=== PATIENT | female | born 1960 | race Caucasian/White ===

== ENCOUNTER 2017-03-30 18:36 | Inpatient (IN) | payer SELFPAY ==
[2017-03-30] VITALS: BP 88/50; PULSE 99; TEMP 36.8; O2SAT 97; BMI 14.6
[~2017-03-30] VITALS: Ht 162.6 cm; Wt 38.6 kg
[~2017-03-30 18:36] MED LIST: IBUP-1050 PO; ONDA4TAB7 SL
[2017-03-30] MEDS ORDERED: LEVAQUIN 750MG / 150ML D5W IV STA (18:54)
[2017-03-30] MEDS ORDERED: METHYLPREDNISOLONE 125 MG VIAL IV STA (18:54)
[2017-03-30] MEDS ORDERED: SODIUM CHLORIDE 0.9% 1000ML 1,000 ML IV STA ×2 (18:54→21:00)
--- NOTE | 2017-03-30 18:58 | EMERGENCY ROOM VISIT NOTE ---
History Report prepared by Aroldo: Nena Rowland Under the Supervision of: Eric Chris.O. First contact with patient: 18:44 Chief Complaint: ILLNESS Stated Complaint: COUGHING UP BLOOD, WEIGHTLOSS, PAIN IN NECK History of Present Illness The patient is a 56 year old female who presents to the Emergency Room with complaints of a cough beginning 4 weeks ago. The patient reports that she has also been coughing up blood for longer than 4 weeks. She states that when she coughs up blood, she also coughs up green mucous. The patient reports that she has also felt short of breath, but denies using breathing treatments. She denies recent travel or contact with anyone sick, or being in contact with anyone with a respiratory disease. She reports that she smokes every day. She states that she has not had an appetite recently and that her weight has dropped from 105 to 84 pounds. The patient reports also having the chills and chest pain that radiates to her back. The patient denies abdominal pain, diarrhea, nose bleeds, blood in stool, rashes, and swelling in her legs. Pt denies any exposure to TB. Source of History: patient Onset: 4 weeks ago Position: other (global) Quality: other (cough with blood) Associated Symptoms: + chills, + chest pain, + back pain, No abdominal pain , No diarrhea, No rash Review of Systems See HPI for pertinent positives & negatives. A total of 10 systems reviewed and were otherwise negative. Past Medical & Surgical Medical Problems: (1) Hemoptysis (2) Lung cancer No pertinent medical history stated. Family History FHx: cancer Social History Smoking Status: Current Every Day Smoker Alcohol Use: occasionally Marital Status: Housing Status: lives with significant other Current/Historical Medications Scheduled PRN Ibuprofen (Advil), 400-600 MG PO Q6H PRN for Pain or Fever Allergies Coded Allergies: No Known Allergies (Unverified , 03/30/17) Physical Exam Vital Signs Date Time Temp Pulse Resp B/P (MAP) Pulse Ox O2 Delivery O2 Flow Rate FiO2 03/30/17 21:30 101 104/53 03/30/17 20:44 92 Nasal Cannula 2.0 03/30/17 20:44 85 Room Air 03/30/17 20:28 106 99/46 91 Room Air 03/30/17 19:19 98 92/54 94 Room Air 03/30/17 19:07 104 03/30/17 18:39 37.1 109 20 85/55 92 Room Air Physical Exam GENERAL: alert, ill appearing, well nourished, no distress, non-toxic, cachectic EYE EXAM: normal conjunctiva, PERRL and EOM's grossly intact OROPHARYNX: no exudate, no erythema, lips, buccal mucosa, and tongue normal and mucous membranes are moist NECK: supple, no nuchal rigidity, no adenopathy, non-tender LUNGS: Coarse and diminished breath sounds bilaterally. Scattered expiratory wheezes. Normal chest wall mechanics HEART: no murmurs, S1 normal and S2 normal ABDOMEN: abdomen soft, non-tender, normo-active bowel sounds, no masses, no rebound or guarding. BACK: Back is symmetrical on inspection and there is no deformity, no midline tenderness, no CVA tenderness. SKIN: no rashes and no bruising UPPER EXTREMITIES: upper extremities are grossly normal. LOWER EXTREMITIES: No pitting edema. NEURO EXAM: Normal sensorium, cranial nerves II-XII grossly intact, normal speech, no gross weakness of arms, no gross weakness of legs. Medical Decision & Procedures ER Provider Diagnostic Interpretation: Radiology results have been interpreted by the radiologist and reviewed by me. CHEST CTA for PULMONARY ARTERIES CT DOSE: 204.98 mGy.cm HISTORY: Hemoptysis. TECHNIQUE: Multiaxial CT images of the chest were performed following the intravenous administration of contrast to evaluate the pulmonary arteries. Maximal intensity projection images were also obtained. A dose lowering technique was utilized adhering to the principles of ALARA. COMPARISON STUDY: None. FINDINGS: Large cavitary thick-walled mass occupying the entire left upper lobe. This obstructs the left upper lobe bronchus and left upper lobe pulmonary artery. No additional filling defects within the remaining pulmonary arteries to suggest pulmonary embolus. Normal caliber thoracic aorta with no evidence for dissection. The heart is normal in size. Trace left pleural effusion. The visualized liver, spleen, right adrenal gland are unremarkable. Large heterogeneous mass occupying the left adrenal gland which measures 6.4 x 4.8 cm. This is consistent with a metastatic focus. The left upper lobe mass extends into the left hilum and left mediastinum and results in partial encasement of the distal left mainstem bronchus with moderate narrowing and partial opacification of the left lower lobe bronchus. There is tumor extension into the left lower lobe bronchus. This mass abuts and slightly narrows the left main pulmonary artery. This mass also abuts the left side of the aortic arch. Emphysema. A 6 mm nodule within the right lower lobe. IMPRESSION: 1. Large thick-walled cavitary mass occupying the entire left upper lobe with extension into the left side of the mediastinum and left hilum. This also narrows and invades into the left lower lobe bronchus. This is consistent with a primary bronchogenic malignancy. 2. A 6 mm nodule within the right lower lobe is highly suspicious for metastatic focus. 3. Large heterogeneous left adrenal gland masses also highly suspicious for metastatic disease. Emphysema. 5. The left upper lobe bronchus and pulmonary artery are completely obstructed. Otherwise, no filling defects within the pulmonary arteries to suggest pulmonary embolus. Electronically signed by: Dontae Rodriguez M.D. 03/30/2017 8:43 PM Dictated Date/Time: 03/30/2017 8:26 PM Laboratory Results Test 03/30/17 19:05 Prothrombin Time 12.0 SECONDS (9.0-12.0) Prothromb Time International Ratio 1.1 (0.9-1.1) Magnesium Level 2.0 mg/dl (1.8-2.4) Troponin I < 0.015 ng/ml (0-0.045) Pro-B-Type Natriuretic Peptide 2473 pg/ml (0-900) Thyroid Stimulating Hormone (TSH) 2.810 uIu/ml (0.300-4.500) Chemistry Specimen Hemolysis Laboratory results per my review. Medications Administered Medications (Trade) Dose Ordered Sig/Bruce Route Start Time Stop Time Status Last Admin Dose Admin Albuterol/ Ipratropium (Duoneb) 12 ml ONE ONCE INH 03/30/17 19:00 03/30/17 19:01 DC 03/30/17 19:21 12 ML Methylprednisolone Sodium Succinate (Solu-Medrol IV) 125 mg NOW STAT IV 03/30/17 18:54 03/30/17 18:56 DC 03/30/17 19:14 125 MG Levofloxacin (Levaquin / D5W) 750 mg NOW STAT IV 03/30/17 18:54 03/31/17 16:32 DC 03/30/17 19:14 750 MG Sodium Chloride 1,000 ml @ 999 mls/hr Q1H1M STAT IV 03/30/17 18:54 03/31/17 16:32 DC 03/30/17 19:12 999 MLS/HR Morphine Sulfate (MoRPHine SULFATE INJ) 2 mg Q30M PRN IV 03/30/17 21:45 04/13/17 21:44 03/30/17 23:31 2 MG Sodium Chloride 1,000 ml @ 100 mls/hr Q10H IV 03/30/17 21:45 03/31/17 16:32 DC 03/31/17 06:38 100 MLS/HR ECG Indication: SOB/dyspnea Rate (beats per minute): 99 Rhythm: sinus rhythm Findings: no acute ischemic change, other (normal axis, normal intervals) ED Course 1844: The patient was evaluated in room C6. A complete history and physical exam was performed. 1853: Ordered Sodium Chloride 1,000 ml @ 999 mls/hr IV, Levofloxacin 750 mg IV, Methylprednisolone Sodium Succinate 125 mg IV. 1899: Ordered Duoneb 12 ml INH. 2054: I updated the patient on her results. 2099: Ordered Sodium Chloride 1,000 ml @ 200 mls/hr IV. 2111: Upon reevaluation, the patient is resting. I discussed the findings and the treatment plan with the patient. She expresses agreement and understanding. I spoke with Dr. Willett of the [facility] Hospitalist Service with Dr. Garsia. She will be evaluated for further management. Medical Decision Differential diagnosis: Etiologies such as infections, reactive airway disease, pneumonia, pneumothorax , COPD, CHF, cardiac ischemia, pulmonary embolism, musculoskeletal, gastrointestinal, as well as others were entertained. Pt here ill appearing. I discussed all results with her. BP initially low, however responded to IVF, I suspect pt runs low due to body habitus and poor po intake recently. Doubt sepsis despite leukocytosis. Likely pneumonia given mass. Pt initially treated as COPD exacerbation. Pt lung exam improved with nebs, however pt didn't report feeling well. Hypoxic on room air. No PE, doubt cardiac etiology. Blood cultures sent as a precaution. Medication Reconcilliation Current Medication List: was personally reviewed by me Blood Pressure Screening Patient's blood pressure: Low blood pressure Consults Time Called: 2099 Consulting Physician: Dr. Willett- [facility] Returned Call: 2111 I reviewed the patient's case with Dr. Willett and Dr. Garsia. He will evaluate the patient for further management. Impression Primary Impression: Hypoxia Additional Impressions: Lung mass COPD exacerbation Hypotension Weight loss Hemoptysis Scribe Attestation The scribe's documentation has been prepared under my direction and personally reviewed by me in its entirety. I confirm that the note above accurately reflects all work, treatment, procedures, and medical decision making performed by me. Departure Information Dispostion Being Evaluated By Hospitalist Referrals No Doctor, Assigned (PCP) Patient Instructions [facility] Problem Qualifiers Additional Impressions: Hypotension Hypotension type: unspecified hypotension type Qualified Codes: I95.9 - Hypotension, unspecified
[2017-03-30] MEDS ORDERED: OPTIRAY 320 IV PRN (19:00)
[2017-03-30] MEDS ORDERED: ALBUT/IPRATROP 3MG/0.5MG NEB 3 ML VIAL INH ONE (19:00)
[2017-03-30 19:15] LABS: HEMATOCRIT 38.8 % (37-47); MEAN CELL VOLUME 93.7 fL (80-100); MEAN CORPUSCULAR HEMOGLOBIN 28.7 pg (25-34); MEAN CORPUSCULAR HGB CONC 30.7 g/dl (32-36); MEAN PLATELET VOLUME 8.6 fL (7.4-10.4); PLATELET COUNT 573 K/uL (130-400); RED BLOOD COUNT 4.14 M/uL (4.2-5.4); WHITE BLOOD COUNT 27.53 K/uL (4.8-10.8)
[2017-03-30 19:25] LABS: INR 1.1 (0.9-1.1)
[2017-03-30 19:40] LABS: BASO % 0.3 %; BASO ABS # 0.07 K/uL (0-0.2); COMPLETE YES; EOS % 0.7 %; IG% 0.4 %; LYMPH % 12.3 %; LYMPH ABS # 3.39 K/uL (1.2-3.4); NEUT % 76.3 %
[2017-03-30 20:05] LABS: ALB/GLOB RATIO 0.4 (0.9-2); ALKALINE PHOSPHATASE 132 U/L (45-117); ALT/SGPT < 6 U/L (12-78); BLOOD UREA NITROGEN 11 mg/dl (7-18); BUN/CREATININE RATIO 15.7 (10-20); CHLORIDE 97 mmol/L (98-107); CREATININE 0.69 mg/dl (0.60-1.20); GLUCOSE 69 mg/dl (70-99); POTASSIUM 4.7 mmol/L (3.5-5.1); SODIUM 132 mmol/L (136-145)
[2017-03-30 20:09] LABS: AST/SGOT 13 U/L (15-37)
[2017-03-30 20:19] LABS: CARBON DIOXIDE 28 mmol/L (21-32)
--- NOTE | 2017-03-30 20:45 | DIAGNOSTIC IMAGING REPORT ---
CHEST CTA for PULMONARY ARTERIES CT DOSE: 204.98 mGy.cm HISTORY: Hemoptysis. TECHNIQUE: Multiaxial CT images of the chest were performed following the intravenous administration of contrast to evaluate the pulmonary arteries. Maximal intensity projection images were also obtained. A dose lowering technique was utilized adhering to the principles of ALARA. COMPARISON STUDY: None. FINDINGS: Large cavitary thick-walled mass occupying the entire left upper lobe. This obstructs the left upper lobe bronchus and left upper lobe pulmonary artery. No additional filling defects within the remaining pulmonary arteries to suggest pulmonary embolus. Normal caliber thoracic aorta with no evidence for dissection. The heart is normal in size. Trace left pleural effusion. The visualized liver, spleen, right adrenal gland are unremarkable. Large heterogeneous mass occupying the left adrenal gland which measures 6.4 x 4.8 cm. This is consistent with a metastatic focus. The left upper lobe mass extends into the left hilum and left mediastinum and results in partial encasement of the distal left mainstem bronchus with moderate narrowing and partial opacification of the left lower lobe bronchus. There is tumor extension into the left lower lobe bronchus. This mass abuts and slightly narrows the left main pulmonary artery. This mass also abuts the left side of the aortic arch. Emphysema. A 6 mm nodule within the right lower lobe. IMPRESSION: 1. Large thick-walled cavitary mass occupying the entire left upper lobe with extension into the left side of the mediastinum and left hilum. This also narrows and invades into the left lower lobe bronchus. This is consistent with a primary bronchogenic malignancy. 2. A 6 mm nodule within the right lower lobe is highly suspicious for metastatic focus. 3. Large heterogeneous left adrenal gland masses also highly suspicious for metastatic disease. Emphysema. 5. The left upper lobe bronchus and pulmonary artery are completely obstructed. Otherwise, no filling defects within the pulmonary arteries to suggest pulmonary embolus. Electronically signed by: Dontae Rodriugez M.D. 03/30/2017 8:43 PM Dictated Date/Time: 03/30/2017 8:26 PM
[2017-03-30] MEDS ORDERED: ALUMINUM/MAGNESIUM/SIMETH (MAALOX MAX) 30 ML UDC PO PRN (21:45)
[2017-03-30] MEDS ORDERED: MAGNESIUM HYDROXIDE SUSP 30 ML UDC PO PRN (21:45)
[2017-03-30] MEDS ORDERED: ACETAMINOPHEN 325 MG TAB PO PRN (21:45)
[2017-03-30] MEDS ORDERED: POLYETHYLENE (MIRALAX) 17 GM PACK PO PRN (21:45)
[2017-03-30] MEDS ORDERED: ONDANSETRON INJ 2 MG/ML 2 ML VIAL IV PRN (21:45)
[2017-03-30] MEDS ORDERED: MoRPHine SULFATE 2 MG/ML CARP IV PRN (21:45)
[2017-03-30] MEDS ORDERED: LORAZEPAM 1 MG TAB PO PRN (21:45)
[2017-03-30] MEDS: SODIUM CHLORIDE 0.9% 1000ML 1,000 ML IV SCH (23:23)
[2017-03-31] VITALS (43 sets, daily range): BP systolic 88–129; BP diastolic 48–68; PULSE 67–99; TEMP 36.4–36.8; O2SAT 89–100; Ht 162.6 cm; Wt 38.6 kg
[2017-03-31] MEDS ORDERED: PAMIDRONATE DISODIUM IV INJ 60 MG in SODIUM CHLORIDE 0.9% 1000ML 1,000 ML IV ONE (02:00)
--- NOTE | 2017-03-31 02:38 | History and Physical ---
History & Physical Date & Time of Service: Mar 31, 2017 at 02:25 Chief Complaint: Hemoptysis, Lung Cancer Primary Care Physician: No Doctor, Assigned History of Present Illness Source: patient, spouse Patient is a 56 year old female with a history of long-standing tobacco abuse, presents with constitutional symptoms going on for the past 6 months. She states that for the past 6 months she's been having intermittent hemoptysis which is comprised of streaks of blood and mucus. She also states that her appetite has been very poor and she has not been eating particularly in the past 4 weeks. Both her endorsed that she has lost 25 pounds of weight. She has a constant sense of feeling feverish, but denies any night sweats or chills. Her also states that she looks quite pale. She denies any abdominal pain, nausea, vomiting, diarrhea or constipation. She' s been urinating normally. She has not eaten much in the past 4 weeks due to low appetite. She does note a [id number] smoking history. The ED a CT scan of her chest showed a large mass in her left long with evidence of dissemination concerning for metastatic malignancy. The patient is to be admitted for further evaluation and treatment. Past Medical/Surgical History Chronic tobacco abuse Increased alcohol consumption, without evidence of alcohol abuse Family History FHx: cancer Social History Smoking Status: Current Every Day Smoker Smokeless Tobacco Use: No Alcohol Use: 14 units per week Drug Use: none Marital Status: in relationship Housing status: lives with significant other Occupational Status: employed ([employer]) Immunizations History of Influenza Vaccine: Unknown History of Tetanus Vaccine?: Unknown History of Pneumococcal: Unknown History of Hepatitis B Vaccine: Unknown Multi-Drug Resistant Organisms History of MDRO: No Allergies Coded Allergies: No Known Allergies (Unverified , 03/30/17) Home Medications Scheduled PRN Ibuprofen (Advil), 400-600 MG PO Q6H PRN for Pain or Fever Review of Systems A 10 point review of systems was negative unless stated above. Physical Exam Vital Signs Date Time Temp Pulse Resp B/P (MAP) Pulse Ox O2 Delivery O2 Flow Rate FiO2 03/31/17 00:00 36.8 99 22 88/50 97 Nasal Cannula 2.0 03/31/17 00:00 Nasal Cannula 2.0 03/30/17 22:56 96 90/51 97 03/30/17 21:30 101 104/53 03/30/17 20:44 92 Nasal Cannula 2.0 03/30/17 20:44 85 Room Air 03/30/17 20:28 106 99/46 91 Room Air 03/30/17 19:19 98 92/54 94 Room Air 03/30/17 19:07 104 03/30/17 18:39 37.1 109 20 85/55 92 Room Air General Appearance: + thin, + pertinent finding (appears thin and malnourished) Head: normocephalic, atraumatic Eyes: normal inspection, EOMI ENT: hearing grossly normal, pharynx normal Neck: supple, no adenopathy, no JVD Respiratory/Chest: no respiratory distress, + decreased breath sounds ( decreased breath sounds in the left lung field) Cardiovascular: regular rate, rhythm, no gallop, no murmur Abdomen/GI: normal bowel sounds, soft, no organomegaly Back: no CVA tenderness, no muscle spasm Extremities/Musculoskelatal: no calf tenderness, no pedal edema Neurologic/Psych: alert, oriented x 3, + depressed affect Skin: normal color, warm/dry, no rash Lymphatic: no adenopathy Diagnostics Laboratory Results Results Past 24 Hours Test 03/30/17 19:05 03/30/17 23:18 Range/Units White Blood Count 27.53 4.8-10.8 K/uL Red Blood Count 4.14 4.2-5.4 M/uL Hemoglobin 11.9 12.0-16.0 g/dL Hematocrit 38.8 37-47 % Mean Corpuscular Volume 93.7 80-100 fL Mean Corpuscular Hemoglobin 28.7 25-34 pg Mean Corpuscular Hemoglobin Concent 30.7 32-36 g/dl Platelet Count 573 130-400 K/uL Mean Platelet Volume 8.6 7.4-10.4 fL Neutrophils (%) (Auto) 76.3 % Lymphocytes (%) (Auto) 12.3 % Monocytes (%) (Auto) 10.0 % Eosinophils (%) (Auto) 0.7 % Basophils (%) (Auto) 0.3 % Neutrophils # (Auto) 21.02 1.4-6.5 K/uL Lymphocytes # (Auto) 3.39 1.2-3.4 K/uL Monocytes # (Auto) 2.74 0.11-0.59 K/uL Eosinophils # (Auto) 0.19 0-0.5 K/uL Basophils # (Auto) 0.07 0-0.2 K/uL RDW Standard Deviation 49.9 36.4-46.3 fL RDW Coefficient of Variation 14.6 11.5-14.5 % Immature Granulocyte % (Auto) 0.4 % Immature Granulocyte # (Auto) 0.12 0.00-0.02 K/uL Prothrombin Time 12.0 9.0-12.0 SECONDS Prothromb Time International Ratio 1.1 0.9-1.1 Sodium Level 132 136-145 mmol/L Potassium Level 4.7 3.5-5.1 mmol/L Chloride Level 97 98-107 mmol/L Carbon Dioxide Level 28 21-32 mmol/L Anion Gap 7.0 3-11 mmol/L Blood Urea Nitrogen 11 7-18 mg/dl Creatinine 0.69 0.60-1.20 mg/dl Est Creatinine Clear Calc Drug Dose 55.3 ml/min Estimated GFR () 112.8 Estimated GFR (Non- 97.3 BUN/Creatinine Ratio 15.7 10-20 Random Glucose 69 70-99 mg/dl Calcium Level 12.0 8.5-10.1 mg/dl Magnesium Level 2.0 1.8-2.4 mg/dl Total Bilirubin 0.5 0.2-1 mg/dl Aspartate Amino Transf (AST/SGOT) 13 15-37 U/L Alanine Aminotransferase (ALT/SGPT) < 6 12-78 U/L Alkaline Phosphatase 132 45-117 U/L Troponin I < 0.015 0-0.045 ng/ml Pro-B-Type Natriuretic Peptide 2473 0-900 pg/ml Total Protein 7.0 6.4-8.2 gm/dl Albumin 2.1 3.4-5.0 gm/dl Globulin 4.9 2.5-4.0 gm/dl Albumin/Globulin Ratio 0.4 0.9-2 Thyroid Stimulating Hormone (TSH) 2.810 0.300-4.500 uIu/ml Chemistry Specimen Hemolysis Parathyroid Hormone (Intact) < 5.5 11.1-79.5 pg/mL Microbiology Results 03/30/17 Blood Culture, Received Pending 03/30/17 Blood Culture, Received Pending Diagnostic Radiology CHEST CTA for PULMONARY ARTERIES CT DOSE: 204.98 mGy.cm HISTORY: Hemoptysis. TECHNIQUE: Multiaxial CT images of the chest were performed following the intravenous administration of contrast to evaluate the pulmonary arteries. Maximal intensity projection images were also obtained. A dose lowering technique was utilized adhering to the principles of ALARA. COMPARISON STUDY: None. FINDINGS: Large cavitary thick-walled mass occupying the entire left upper lobe. This obstructs the left upper lobe bronchus and left upper lobe pulmonary artery. No additional filling defects within the remaining pulmonary arteries to suggest pulmonary embolus. Normal caliber thoracic aorta with no evidence for dissection. The heart is normal in size. Trace left pleural effusion. The visualized liver, spleen, right adrenal gland are unremarkable. Large heterogeneous mass occupying the left adrenal gland which measures 6.4 x 4.8 cm. This is consistent with a metastatic focus. The left upper lobe mass extends into the left hilum and left mediastinum and results in partial encasement of the distal left mainstem bronchus with moderate narrowing and partial opacification of the left lower lobe bronchus. There is tumor extension into the left lower lobe bronchus. This mass abuts and slightly narrows the left main pulmonary artery. This mass also abuts the left side of the aortic arch. Emphysema. A 6 mm nodule within the right lower lobe. IMPRESSION: 1. Large thick-walled cavitary mass occupying the entire left upper lobe with extension into the left side of the mediastinum and left hilum. This also narrows and invades into the left lower lobe bronchus. This is consistent with a primary bronchogenic malignancy. 2. A 6 mm nodule within the right lower lobe is highly suspicious for metastatic focus. 3. Large heterogeneous left adrenal gland masses also highly suspicious for metastatic disease. Emphysema. 5. The left upper lobe bronchus and pulmonary artery are completely obstructed. Otherwise, no filling defects within the pulmonary arteries to suggest pulmonary embolus. Electronically signed by: Dontae Rodriguez M.D. 03/30/2017 8:43 PM Dictated Date/Time: 03/30/2017 8:26 PM The status of this report is Signed. Draft = Not yet reviewed or approved by Radiologist. Signed = Reviewed and approved by Radiologist. Impression Assessment and Plan 56 showed female, with new suspected metastatic cancer of the lung. This is a new diagnosis for her and has not previously had any kind of workup. Our plan for her is as follows: Large left lung mass - Suspected lung primary; evidence of dissemination to the abdomen - Requires staging CT abdomen pelvis with IV and oral contrast CT brain with and without contrast The patient is a 30 had contrast studies done today, therefore these studies may need to be deferred until tomorrow - Consult pulmonary - Consult thoracic surgery Left Lobar Pneumonia - WBC 27 on arrival - Levaquin IV to cover for occult pneumonia obscured by the mass Chronic protein calorie malnutrition - Secondary to consumptive malignancy - Well rehydrate overnight with normal saline @ 100 ml/hr - Low albumin, likely has low prealbumin as well - 18 consider nutritional consultation has needed Hyponatremia - Sodium 132 - May be due to chronic malnutrition secondary to malignancy - We'll hydrate the patient overnight and repeat renal panel and electrolytes daily Hypercalcemia - Calcium level is 12, concerning for likely metastatic disease to the bone - Serum PTH is low - Consider paraneoplastic syndrome - We'll administer 60 mg IV pamidronate 1 dose Elevated alkaline phosphatase - The patient does not have any right upper quadrant tenderness or findings suggestive of biliary obstruction - Again would consider the possibility of metastatic disease to the biliary tree of the liver - Monitor daily Chronic tobacco abuse - 14 g nicotine patch Increased consumption without evidence of alcohol abuse - The patient is not appearing to be withdrawing at this time - We'll monitor clinically and can institute alcohol withdrawal protocol if symptoms noted DVT Prophylaxis - SUMA Flores, CM Angulo - I have held off on pharmacological anticoagulating the patient at this time, given history of hemoptysis If H&H remains stable, and the patient can be started, as patient is a high risk for thrombosis due to malignancy Code Status - Level I Full Code Disposition - Telemetry - OT and PT evaluations Attending Addendum: I have physically seen and examined this patient, have directed the resident's medical activities, and agree with the H&P as noted above with the following exceptions as noted. The patient is awake, alert and oriented 3, cachectic appearing normocephalic and atraumatic, sitting upright in bed and in no acute distress. HEENT--PERRL, EOMI, mucous membranes and oropharynx dry. Neck--supple, no JVD or bruits, thyroid normal, trachea midline, no adenopathy. Heart--normal S1 and S2, no extra beats, no murmurs, rubs or gallops. Lungs--decreased breath sounds left side greater than right. Abdomen--normal bowel sounds and soft, nontender and nondistended, no hernias or masses, no organomegaly. Extremities--no cyanosis, clubbing or edema. There are good distal pulses b/l. Dermatologic--normal skin turgor, normal color, warm and dry, no abnormal lymph nodes, no rash. Neurologic--cranial nerves II through XII grossly intact. Rheumatologic--normal range of motion, nontender, muscles and joints. Psychiatric--depressed and tearful affect. Assessment and Plan: Newly diagnosed large left upper lobe lung mass with erosion into left hilum and mediastinum/metastases to left adrenal gland and right lower lobe of lung/ unintentional weight loss over 6 months/postobstructive pneumonia-- Admitted to the telemetry unit for close oxygen monitoring. Nothing by mouth after midnight. Vancomycin IV, Zosyn IV and Levaquin IV. Duonebs every 4 hours while awake and every 2 hours when necessary. Consult thoracic surgery/pulmonology. Order CT of head, abdomen and pelvis for further staging. We'll need oncology/radiation oncology consults. 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 Tobacco use disorder-- NicoDerm patch. Tobacco cessation program. Level of Care Telemetry Advanced Directives Existing Advance Directive: No Existing Living Will: No Existing Power of Steam Shovel Engineer: No Resuscitation Status FULL RESUSCITATION VTE Prophylaxis VTE Risk Assessment Done? Y/N: Yes Risk Level: Moderate Given or contraindicated: SCD's
[2017-03-31] MEDS ORDERED: VANCOMYCIN INJ 1,000 MG in SODIUM CHLORIDE 0.9% 250ML 250 ML IV STA (05:27)
[2017-03-31] MEDS ORDERED: PIPERACILL/TAZOBAC IV 3.375 GM in DEXTROSE 5% 100ML 100 ML IV SCH (06:00)
[2017-03-31] MEDS ORDERED: PIPERACILL/TAZOBAC IV 3.375 GM in DEXTROSE 5% 100ML IV ONE (06:00)
[2017-03-31] MEDS ORDERED: PIPERACILL/TAZOBAC CONSULT ACTIVE PRN (06:15)
[2017-03-31] MEDS ORDERED: VANCOMYCIN CONSULT ACTIVE PRN (06:15)
[2017-03-31] MEDS: SODIUM CHLORIDE 0.9% 1000ML 1,000 ML IV SCH (06:38)
--- NOTE | 2017-03-31 07:04 | Family Medicine Progress Note ---
Progress Note Date of Service Mar 31, 2017. Subjective Pt evaluation today including: conversation w/ patient, physical exam, chart review, lab review The patient was seen and examined at bedside. Somnolent. Patient is resting comfortably in bed. States she feels better. Hemoptysis cup at bedside. Plan of care was described to the patient and all questions were answered. Constitutional: No fever, No chills, No sweats, No weight loss ENT: No hearing loss Respiratory: + cough, + sputum, + shortness of breath, + hemoptysis, No wheezing, No dyspnea on exertion Cardiovascular: No chest pain Abdomen: No pain, No nausea, No vomiting, No diarrhea, No constipation Female : No dysuria Psychiatric: No depression symptoms Skin: No rash Objective Physical Exam General Appearance: WD/WN, no apparent distress Eyes: PERRL Respiratory/Chest: chest non-tender, no respiratory distress, no accessory muscle use, + crackles, + rales (bilateral lung rubio) Cardiovascular: regular rate, rhythm, no edema, no gallop, no JVD, no murmur Abdomen: normal bowel sounds, non tender, soft, no organomegaly, no pulsatile mass Extremities: normal range of motion, non-tender, normal inspection, no pedal edema, no calf tenderness Neurologic/Psychiatric: beef pusher II-XII nml as tested, no motor/sensory deficits, alert, normal mood/affect, oriented x 3 Assessment and Plan 56F with a 40pk year smoking history, self insured, p/w hemoptysis x [address] chest suspicious of new metastatic cancer of the lung. Was working at a [employer] in [place] up until 1 day [employer]. S/p bronchoscopy today with pathology pending. Large left lung mass - Suspected lung primary; evidence of dissemination to the abdomen - Requires staging CT abdomen pelvis with IV and oral contrast still pending. CT brain with and without contrast still pending. - Dr. Ascencio bronched her today - suspicious lung lesions on left. Left Lobar Pneumonia - WBC 27 on arrival - Received Levoquin, Vanco and Zosyn - will will keep Zosyn for now and hopefully narrow to Levoquin later. Chronic protein calorie malnutrition - Secondary to consumptive malignancy - Well rehydrate overnight with normal saline @ 100 ml/hr - Low albumin, likely has low prealbumin as well - Consider nutritional consultation as needed Hyponatremia - Admitting Sodium 132 - May be due to chronic malnutrition secondary to malignancy - DC'd IVF, continue to monitor. Hypercalcemia - Calcium level is 12, concerning for likely metastatic disease to the bone - Serum PTH is low - Consider paraneoplastic syndrome - s/p 60 mg IV pamidronate 1 dose Elevated alkaline phosphatase - The patient does not have any right upper quadrant tenderness or findings suggestive of biliary obstruction - Again would consider the possibility of metastatic disease to the biliary tree of the liver - Monitor daily Chronic tobacco abuse - 14 g nicotine patch Increased consumption without evidence of alcohol abuse - The patient is not appearing to be withdrawing at this time - We'll monitor clinically and can institute alcohol withdrawal protocol if symptoms noted DVT Prophylaxis - SCD Knee, CM Hose - I have held off on pharmacological anticoagulating the patient at this time, given history of hemoptysis If H&H remains stable, and the patient can be started, as patient is a high risk for thrombosis due to malignancy Disposition - Med Surg - OT and PT evaluations FULL CODE Resident Physician Supervision Note: I interviewed and examined the patient. Discussed with Dr. Phelps and agree with findings and plan as documented in the note. Any exceptions or clarifications are listed here: None Documented By: Brian Sifuentes sleeping/sedated post bronch. procedure reviewed. vitals noted nad breathing unlabored no pallor or icterus, no appearance of respiratory distress newly identified lung cancer w postobstructive pneumonia, hypoxic respiratory failure, and sepsis -improving in regards to pneumonia/hypoxia. continue zosyn. post bronch for tissue. 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 otherwise as above Resident Involvement: Resident Care Provided Care Provided: Adult Hospital Medicine
[2017-03-31 08:32] LABS: COMPLETE YES; HEMATOCRIT 37.6 % (37-47); IG% 0.4 %; LYMPH % 7.3 %; LYMPH ABS # 1.55 K/uL (1.2-3.4); MEAN CELL VOLUME 93.3 fL (80-100); MEAN CORPUSCULAR HEMOGLOBIN 30.8 pg (25-34); MONO % 0.6 %; NEUT % 91.7 %; PLATELET COUNT 521 K/uL (130-400); RED BLOOD COUNT 4.03 M/uL (4.2-5.4); WHITE BLOOD COUNT 21.22 K/uL (4.8-10.8)
[2017-03-31] MEDS: NICOTINE 14 MG/24 HR TDSY TD SCH (09:00)
[2017-03-31 09:06] LABS: ALB/GLOB RATIO 0.4 (0.9-2); ALKALINE PHOSPHATASE 105 U/L (45-117); ALT/SGPT < 6 U/L (12-78); AST/SGOT 7 U/L (15-37); BLOOD UREA NITROGEN 12 mg/dl (7-18); BUN/CREATININE RATIO 17.7 (10-20); CALCIUM 11.6 mg/dl (8.5-10.1); CARBON DIOXIDE 24 mmol/L (21-32); CHLORIDE 100 mmol/L (98-107); CREATININE 0.65 mg/dl (0.60-1.20); GLUCOSE 167 mg/dl (70-99); POTASSIUM 4.3 mmol/L (3.5-5.1); SODIUM 134 mmol/L (136-145)
--- NOTE | 2017-03-31 09:34 | Pharmacy Progress Note ---
Pharmacy Antibiotic Consult Date of Service: Mar 31, 2017. Pharmacy Dosing Scope Pharmacy is consulted to initiate vancomycin/zosyn IV dosing therapy, order appropriate labs and adjust drug dose/frequency. Subjective The patient is a 56 year old female admitted on Mar 30, 2017 at 21:54. Objective Height (Feet): 5 Height (Inches): 4.00 Weight (Kilograms): 38.600 Lab Results (24hrs): Test 03/30/17 19:05 03/30/17 23:18 03/31/17 07:50 White Blood Count 27.53 K/uL (4.8-10.8) 21.22 K/uL (4.8-10.8) Red Blood Count 4.14 M/uL (4.2-5.4) 4.03 M/uL (4.2-5.4) Hemoglobin 11.9 g/dL (12.0-16.0) 12.4 g/dL (12.0-16.0) Hematocrit 38.8 % (37-47) 37.6 % (37-47) Mean Corpuscular Volume 93.7 fL (80-100) 93.3 fL (80-100) Mean Corpuscular Hemoglobin 28.7 pg (25-34) 30.8 pg (25-34) Mean Corpuscular Hemoglobin Concent 30.7 g/dl (32-36) 33.0 g/dl (32-36) Platelet Count 573 K/uL (130-400) 521 K/uL (130-400) Mean Platelet Volume 8.6 fL (7.4-10.4) 9.0 fL (7.4-10.4) Neutrophils (%) (Auto) 76.3 % 91.7 % Lymphocytes (%) (Auto) 12.3 % 7.3 % Monocytes (%) (Auto) 10.0 % 0.6 % Eosinophils (%) (Auto) 0.7 % 0.0 % Basophils (%) (Auto) 0.3 % 0.0 % Neutrophils # (Auto) 21.02 K/uL (1.4-6.5) 19.47 K/uL (1.4-6.5) Lymphocytes # (Auto) 3.39 K/uL (1.2-3.4) 1.55 K/uL (1.2-3.4) Monocytes # (Auto) 2.74 K/uL (0.11-0.59) 0.12 K/uL (0.11-0.59) Eosinophils # (Auto) 0.19 K/uL (0-0.5) 0.00 K/uL (0-0.5) Basophils # (Auto) 0.07 K/uL (0-0.2) 0.00 K/uL (0-0.2) RDW Standard Deviation 49.9 fL (36.4-46.3) 49.5 fL (36.4-46.3) RDW Coefficient of Variation 14.6 % (11.5-14.5) 14.6 % (11.5-14.5) Immature Granulocyte % (Auto) 0.4 % 0.4 % Immature Granulocyte # (Auto) 0.12 K/uL (0.00-0.02) 0.08 K/uL (0.00-0.02) Prothrombin Time 12.0 SECONDS (9.0-12.0) Prothromb Time International Ratio 1.1 (0.9-1.1) Sodium Level 132 mmol/L (136-145) 134 mmol/L (136-145) Potassium Level 4.7 mmol/L (3.5-5.1) 4.3 mmol/L (3.5-5.1) Chloride Level 97 mmol/L (98-107) 100 mmol/L (98-107) Carbon Dioxide Level 28 mmol/L (21-32) 24 mmol/L (21-32) Anion Gap 7.0 mmol/L (3-11) 9.0 mmol/L (3-11) Blood Urea Nitrogen 11 mg/dl (7-18) 12 mg/dl (7-18) Creatinine 0.69 mg/dl (0.60-1.20) 0.65 mg/dl (0.60-1.20) Est Creatinine Clear Calc Drug Dose 55.3 ml/min 58.9 ml/min Estimated GFR () 112.8 115.0 Estimated GFR (Non- 97.3 99.2 BUN/Creatinine Ratio 15.7 (10-20) 17.7 (10-20) Random Glucose 69 mg/dl (70-99) 167 mg/dl (70-99) Calcium Level 12.0 mg/dl (8.5-10.1) 11.6 mg/dl (8.5-10.1) Magnesium Level 2.0 mg/dl (1.8-2.4) Total Bilirubin 0.5 mg/dl (0.2-1) 0.4 mg/dl (0.2-1) Aspartate Amino Transf (AST/SGOT) 13 U/L (15-37) 7 U/L (15-37) Alanine Aminotransferase (ALT/SGPT) < 6 U/L (12-78) < 6 U/L (12-78) Alkaline Phosphatase 132 U/L (45-117) 105 U/L (45-117) Troponin I < 0.015 ng/ml (0-0.045) Pro-B-Type Natriuretic Peptide 2473 pg/ml (0-900) Total Protein 7.0 gm/dl (6.4-8.2) 6.0 gm/dl (6.4-8.2) Albumin 2.1 gm/dl (3.4-5.0) 1.7 gm/dl (3.4-5.0) Globulin 4.9 gm/dl (2.5-4.0) 4.3 gm/dl (2.5-4.0) Albumin/Globulin Ratio 0.4 (0.9-2) 0.4 (0.9-2) Thyroid Stimulating Hormone (TSH) 2.810 uIu/ml (0.300-4.500) Chemistry Specimen Hemolysis Parathyroid Hormone (Intact) < 5.5 pg/mL (11.1-79.5) Micro Results: Date/Time Source Procedure Growth Status 03/30/17 22:03 Blood Blood Culture Pending Received 03/30/17 22:03 Blood Blood Culture Pending Received Assessment & Plan Assessment: Pt is a 56 yo female (+) constitutional symptoms past 6 months, with recent weight loss, 40 pack year smoking history CT scn with large mass in left lung admitted for further evaluation Vancomycin, zosyn, levquin started for left lower lobe pneumonia Plan: Loading dose of 1000 mg (25 mg/kg) x 1 given this AM Maintenance Dose: 750 mg (19 mg/kg) q18H SCr 0.65, CrCl 58.9, Ke 0.053, T1/2 ~13 Hrs Goal trough for pneumonia 15-20 mcg/mL Trough ordered for 04/02 @ 1130 MRSA swab ordered Zosyn 3.375 gm x 1 then 3.375 q8H extended infusion for CrCl > 20 mL/min Pharmacy will continue to follow and will adjust dose/frequency as necessary. Thank you
[2017-03-31] MEDS: PIPERACILL/TAZOBAC IV 3.375 GM in DEXTROSE 5% 100ML IV SCH ×2 (10:35→17:50)
--- NOTE | 2017-03-31 11:19 | Pulmonary Consultation ---
History General Date of Service: Mar 31, 2017. Stated Complaint: Hemoptysis, Lung Cancer HPI Patient is a 56-year-old female currently admitted to [facility] who presented to the emergency department with complaints of cough, hemoptysis, green mucus production, and shortness of Breath. The patient is a current tobacco smoker and has been smoking approximately 1 pack per day for 40 years. The patient states that her appetite has been severely decreased recently. She lost approximately 20 lb over the past few weeks. Upon admission, the patient did have a CTA of her chest which shows a large thick walled cavitary mass occupying the entire left upper lobe with extensions into the left side of the mediastinum and left hilum. There is also notable invasion into the left lower lobe bronchus which is most likely consistent with primary bronchogenic malignancy. She was also noted to have 6 mm nodule within the right lower lobe, a large heterogenous left adrenal gland mass, emphysema, and left upper lobe bronchus and pulmonary artery complete obstruction. These images were reviewed by me and reviewed with Dr. Ascencio as well. The patient does also have blood cultures which are pending. Her white blood cell count on admission was 27.53. Hemoglobin was 11.9. Platelet count was 573 , and neutrophil predominance was seen with 21.0 to neutrophil count. BNP was 2473. She was also noted to have slightly low sodium and chloride on initial lab work. Her vital signs were also reviewed. It was noted that she has been afebrile since admission. Blood pressure has been between 85/55 to 104/62 today. She is currently on nasal cannula O2. Her SaO2 today been 96 % and above. The patient did also have an EKG on admission which showed sinus rhythm, and possible left atrial enlargement. This was viewed. Historian: patient Review of Systems Constitutional: denies: chills, fever Eyes: denies: itching, visual changes ENT: denies: loss of hearing Cardiovascular: denies: chest pain, chest tightness Respiratory: reports: cough, shortness of breath, hemoptysis Gastrointestinal: denies: abdominal pain, constipation, diarrhea Genitourinary - Female: denies: dysuria Integumentary: denies: rash Neurologic: reports: general weakness, denies: headache All Other Symptoms All Other Systems: Reviewed and Negative Past Medical History Past Medical History: Chronic tobacco abuse Increased alcohol consumption, without evidence of alcohol abuse Medical Problems: (1) Hemoptysis (2) Lung cancer Family History FHx: cancer Social History Hx Tobacco Use In Past Year?: Yes Smoking Status: Current Every Day Smoker Marital status: in relationship Housing status: lives with significant other 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) Immunizations History of Influenza Vaccine: Unknown History of Tetanus Vaccine?: Unknown History of Pneumococcal: Unknown History of Hepatitis B Vaccine: Unknown History of MDRO History of MDRO: No Allergies Coded Allergies: No Known Allergies (Unverified , 03/30/17) Current Medications Reported Home Medications Medications Dose Route/Sig Max Daily Dose Days Date Category Advil (Ibuprofen) 200 Mg Tab 400-600 Mg PO Q6H PRN 10/29/12 Reported Physical Physical Exam Vital Signs: Date Time Temp Pulse Resp B/P (MAP) Pulse Ox O2 Delivery O2 Flow Rate FiO2 03/31/17 08:00 Nasal Cannula 2.0 03/31/17 07:56 36.5 70 18 104/62 (76) 96 Nasal Cannula 2.0 03/31/17 04:00 Nasal Cannula 2.0 03/31/17 03:49 36.5 83 18 90/49 (63) 99 Nasal Cannula 2.0 03/31/17 00:00 36.8 99 22 88/50 97 Nasal Cannula 2.0 03/31/17 00:00 Nasal Cannula 2.0 03/30/17 22:56 96 90/51 97 03/30/17 21:30 101 104/53 03/30/17 20:44 92 Nasal Cannula 2.0 03/30/17 20:44 85 Room Air 03/30/17 20:28 106 99/46 91 Room Air 03/30/17 19:19 98 92/54 94 Room Air 03/30/17 19:07 104 03/30/17 18:39 37.1 109 20 85/55 92 Room Air General: Patient is awake, alert, cooperative, and in no acute distress. Very thin Skin: Normal appearance, texture, and temperature. No apparent rash or ecchymoses. HEENT: Normocephalic and atraumatic. Eyes are anicteric and non-erythematous. EOMI c PERRLA. Hearing intact and without difficulty. Nose appears normal and without drainage. Trachea midline. Thyroid appears normal, and neck is supple. Lungs: Severely decreased breath sounds throughout left lung. Slightly decrease breath sounds throughout right lung. Mild high pitched wheeze in left upper. No accessory muscle use. Chest is nontender to palpation Heart: Regular rate and rhythm. Normal S1 and S2 heard. No S3/S4, rubs, murmurs , or gallops appreciated. Abdomen: Active bowel sounds heard throughout all 4 quadrants. Extremities: No cyanosis or edema. Appears to have slight clubbing of the fingernails. Gait normal and without difficulty. Freely moving extremities during exam. Neuro: Alert and oriented X3. CN II-XII grossly intact. Sensation and motor function grossly intact. Psych: Mood and affect are normal. Diagnostics Labs Results Past 24 Hours Test 03/30/17 19:05 03/30/17 23:18 03/31/17 07:50 Range/Units White Blood Count 27.53 21.22 4.8-10.8 K/uL Red Blood Count 4.14 4.03 4.2-5.4 M/uL Hemoglobin 11.9 12.4 12.0-16.0 g/dL Hematocrit 38.8 37.6 37-47 % Mean Corpuscular Volume 93.7 93.3 80-100 fL Mean Corpuscular Hemoglobin 28.7 30.8 25-34 pg Mean Corpuscular Hemoglobin Concent 30.7 33.0 32-36 g/dl Platelet Count 573 521 130-400 K/uL Mean Platelet Volume 8.6 9.0 7.4-10.4 fL Neutrophils (%) (Auto) 76.3 91.7 % Lymphocytes (%) (Auto) 12.3 7.3 % Monocytes (%) (Auto) 10.0 0.6 % Eosinophils (%) (Auto) 0.7 0.0 % Basophils (%) (Auto) 0.3 0.0 % Neutrophils # (Auto) 21.02 19.47 1.4-6.5 K/uL Lymphocytes # (Auto) 3.39 1.55 1.2-3.4 K/uL Monocytes # (Auto) 2.74 0.12 0.11-0.59 K/uL Eosinophils # (Auto) 0.19 0.00 0-0.5 K/uL Basophils # (Auto) 0.07 0.00 0-0.2 K/uL RDW Standard Deviation 49.9 49.5 36.4-46.3 fL RDW Coefficient of Variation 14.6 14.6 11.5-14.5 % Immature Granulocyte % (Auto) 0.4 0.4 % Immature Granulocyte # (Auto) 0.12 0.08 0.00-0.02 K/uL Prothrombin Time 12.0 9.0-12.0 SECONDS Prothromb Time International Ratio 1.1 0.9-1.1 Sodium Level 132 134 136-145 mmol/L Potassium Level 4.7 4.3 3.5-5.1 mmol/L Chloride Level 97 100 98-107 mmol/L Carbon Dioxide Level 28 24 21-32 mmol/L Anion Gap 7.0 9.0 3-11 mmol/L Blood Urea Nitrogen 11 12 7-18 mg/dl Creatinine 0.69 0.65 0.60-1.20 mg/dl Est Creatinine Clear Calc Drug Dose 55.3 58.9 ml/min Estimated GFR () 112.8 115.0 Estimated GFR (Non- 97.3 99.2 BUN/Creatinine Ratio 15.7 17.7 10-20 Random Glucose 69 167 70-99 mg/dl Calcium Level 12.0 11.6 8.5-10.1 mg/dl Magnesium Level 2.0 1.8-2.4 mg/dl Total Bilirubin 0.5 0.4 0.2-1 mg/dl Aspartate Amino Transf (AST/SGOT) 13 7 15-37 U/L Alanine Aminotransferase (ALT/SGPT) < 6 < 6 12-78 U/L Alkaline Phosphatase 132 105 45-117 U/L Troponin I < 0.015 0-0.045 ng/ml Pro-B-Type Natriuretic Peptide 2473 0-900 pg/ml Total Protein 7.0 6.0 6.4-8.2 gm/dl Albumin 2.1 1.7 3.4-5.0 gm/dl Globulin 4.9 4.3 2.5-4.0 gm/dl Albumin/Globulin Ratio 0.4 0.4 0.9-2 Thyroid Stimulating Hormone (TSH) 2.810 0.300-4.500 uIu/ml Chemistry Specimen Hemolysis Parathyroid Hormone (Intact) < 5.5 11.1-79.5 pg/mL Hepatitis C Antibody Screen NEG NEG Microbiology Results 03/30/17 Blood Culture, Received Pending 03/30/17 Blood Culture, Received Pending Diagnostic Radiology CHEST CTA for PULMONARY ARTERIES CT DOSE: 204.98 mGy.cm HISTORY: Hemoptysis. TECHNIQUE: Multiaxial CT images of the chest were performed following the intravenous administration of contrast to evaluate the pulmonary arteries. Maximal intensity projection images were also obtained. A dose lowering technique was utilized adhering to the principles of ALARA. COMPARISON STUDY: None. FINDINGS: Large cavitary thick-walled mass occupying the entire left upper lobe. This obstructs the left upper lobe bronchus and left upper lobe pulmonary artery. No additional filling defects within the remaining pulmonary arteries to suggest pulmonary embolus. Normal caliber thoracic aorta with no evidence for dissection. The heart is normal in size. Trace left pleural effusion. The visualized liver, spleen, right adrenal gland are unremarkable. Large heterogeneous mass occupying the left adrenal gland which measures 6.4 x 4.8 cm. This is consistent with a metastatic focus. The left upper lobe mass extends into the left hilum and left mediastinum and results in partial encasement of the distal left mainstem bronchus with moderate narrowing and partial opacification of the left lower lobe bronchus. There is tumor extension into the left lower lobe bronchus. This mass abuts and slightly narrows the left main pulmonary artery. This mass also abuts the left side of the aortic arch. Emphysema. A 6 mm nodule within the right lower lobe. IMPRESSION: 1. Large thick-walled cavitary mass occupying the entire left upper lobe with extension into the left side of the mediastinum and left hilum. This also narrows and invades into the left lower lobe bronchus. This is consistent with a primary bronchogenic malignancy. 2. A 6 mm nodule within the right lower lobe is highly suspicious for metastatic focus. 3. Large heterogeneous left adrenal gland masses also highly suspicious for metastatic disease. Emphysema. 5. The left upper lobe bronchus and pulmonary artery are completely obstructed. Otherwise, no filling defects within the pulmonary arteries to suggest pulmonary embolus. EKG Noted in HPI. Impression Assessment and Plan Patient is a 53-year-old female with hemoptysis, shortness of breath, and large cavitary left lung mass. Seems most likely that this patient has primary bronchogenic carcinoma, but will plan for EBUS with bronchoscopy this afternoon to further evaluate the patient's large mass. Discussed this plan with Ap Bey PA-C, thoracic surgery briefly as well. Patient is aware of plan. Placed order for NPO. The patient has been seen and examined as well as the plan reviewed. I agree with moving forward with the EBUS evaluation.
--- NOTE | 2017-03-31 13:09 | History & Physical Bridge Note ---
H&P Re-Evaluation Bridge Note: I have examined the patient, reviewed the History & Physical and in the interval since the performance of the History & Physical I have noted the following changes of clinical significance: No changes noted
--- NOTE | 2017-03-31 15:13 | SURGICAL CONSULTATION ---
DATE OF CONSULTATION: 03/31/2017 DATE OF CONSULTATION: 03/31/2017 REASON FOR CONSULTATION: Left lung mass. HISTORY OF PRESENT ILLNESS: This is a 56-year-old female who started smoking at age 16 and has smoked a pack a day for the last 40 years. She has been having blood streaked sputum for the last 6 months. The patient normally weighs between 108 and 110 pounds and now is down to 85 pounds. She is very weak. She developed some mild chest pain in her left lung and her hemoptysis has worsened. She does not really have pain. The patient underwent a CT scan to rule out pulmonary embolism and was found to have a very large mass which is occluding her left upper lobe bronchus and encroaching in the hilum, left pulmonary artery. She also has acute left adrenal gland which is almost certainly metastatic disease. I was asked to evaluate her from a diagnostic and treatment standpoint. This patient has a carcinoma of the lung almost assuredly. The question is what type. She does have some subcarinal adenopathy, possibly dealing with a small cell, however, more than likely we are dealing with a nonsmall cell lung carcinoma. I believe tissue diagnosis is necessary. My schedule is full. I discussed this case with Dr. Aditya Ascencio and Dr. Ascencio is going to take her to the bronchoscopy suite for a bronchoscopy today. PAST MEDICAL HISTORY: 1. History of cigarette smoking for 40 years at pack a day. 2. Weight loss. 3. Alcohol use. PAST SURGICAL HISTORY: 2, para 2, aborta 0 (2 spontaneous vaginal deliveries). MEDICATIONS: Advil. ALLERGIES: No known drug allergies. SOCIAL HISTORY: The patient lives with her boyfriend. 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 She has 1 adult child who lives in the area, another adult child lives in [place] with her 3 grandchildren. She does drink and does smoke. FAMILY MEDICAL HISTORY: The patient's father of cancer and she did not know the origin in his 50s. Mother from myocardial infarction in her 60s. She had a sister who at 30s in a motor vehicle accident, a brother who from cancer in his 50s. She has several other siblings who are alive and well. REVIEW OF SYSTEMS: The patient has lost about 20% of her body weight in the last 6 months. She states she just does not feel like eating. She has also become very weak. She denies lower extremity edema. She has had no palpitations. She has very little in the way of chest pain. She does have increasing shortness of breath and also has some green mucus production. She denies any skin breakdown. She has had no visual or auditory symptoms. PHYSICAL EXAMINATION: GENERAL: This is a very small female who is lying in bed comfortably. She stands 5 feet 4 inches tall and weighs 85 pounds. HEAD, EYES, EARS, NOSE, AND THROAT: Extraocular movements are intact. Pupils are equal, round and reactive. Her sclerae are pale, but anicteric. Oral mucosa is moist. Her teeth are in fairly good repair. She has no leukoplakia. NECK: Supple. I really did not detect any supraclavicular or cervical lymphadenopathy. She had no carotid bruits. She is actually moving air fairly well upon auscultation. I did not really appreciate any wheezing except in the upper lobe and it was very mild and expiratory. She does have decreased breath sounds throughout, but I thought it was a bit worse in the left base. HEART: She has a regular rate and rhythm of her heart with no significant rub. ABDOMEN: Soft, flat, nontender. No surgical incisions. She has good peripheral pulses. She has no joint effusions and no peripheral edema. She has no focal deficits. NEUROLOGIC: She is awake, alert and oriented. ASSESSMENT AND PLAN: Probable metastatic nonsmall cell lung carcinoma, left upper lobe. Dr. Ascencio has kindly offered to perform this bronchoscopy as I will be in the operating room for the rest of the day. We discussed this in detail with the patient.
--- NOTE | 2017-03-31 15:14 | Bronchoscopy Procedure Note ---
Bronchoscopy Procedure Note Procedure: Bronchoscopy, conscious sedation, bronchial lavage, fine-needle aspiration, intrabronchial biopsy Consent: Obtained through the patient placed into the chart Pre-procedural diagnosis: Left upper lobe cavitary mass Post-procedural diagnosis: Left upper lobe cavitary mass highly suspicious for squamous cell carcinoma Start time: 1341 End time: 1455 Total time: 74 minutes Analgesia: 2% liquid lidocaine: Via nebulizer 4% gel lidocaine: Via right naris 2% liquid lidocaine: Via bronchoscopy Sedation: Versed IV: 9 mg Fentanyl IV: 100 g Procedure: The Olympus video bronchoscope was used for this procedure as well as the Olympus EBUS scope The EBUS bronchoscopy was initially passed out through the oropharynx The Olympus video bronchoscopy was passed out through the right naris Right naris/posterior naris/posterior oropharynx: Anatomically within normal limits Glottis: Anatomically within normal limits Vocal cords: Proper abduction and abduction, anatomically within normal limits Subglottis/trachea/Elaina: Anatomically within normal limits Right bronchial tree: Right mainstem bronchus: Anatomically within normal limits Right upper lobe: Anatomically within normal limits Bronchus intermedius: Anatomically within normal limits Right middle lobe: Anatomically within normal limits Right lower lobe: Anatomically within normal limits Findings: No significant findings noted Left bronchial tree: Left mainstem bronchus: Anatomically within normal limits Left upper lobe: Tumor-looking material was notably going out of the left upper lobe obstructing the lingula Lingula: Twawe-bcfohcs-muwm material was growing out of the lingula Left lower lobe: Tumor was actually growing along the medial anterior aspect of the takeoff to the left lower lobe Bronchial alveolar lavage: Left upper lobe being sent for microbiology Tbbx: Left upper lobe EBUS/KATHY: Tbbx David Stations: 7: # of passes 2 EBL: 5 cc Complications: Mild hypoxemia with STEWART twos appreciated at the lowest 84%. Quickly increased into the low 90s no hemodynamic instability Follow-up: In the [facility]
[2017-03-31] MEDS ORDERED: NURSING VERBAL MED ORDER ONE (15:45)
--- NOTE | 2017-03-31 15:48 | DIAGNOSTIC IMAGING REPORT ---
CHEST 1 VW FRONT-NOT PORTABLE HISTORY: Post-EBUS with biopsies COMPARISON: Chest CT 03/30/2017. FINDINGS: Large left upper lobe cavitary mass is again noted. No definite pneumothorax. Mild diffuse interstitial thickening. The heart is normal in size. IMPRESSION: Redemonstration of the large left upper lobe cavitary mass. No definite pneumothorax. Electronically signed by: Dontae Rodriguez M.D. 03/31/2017 3:47 PM Dictated Date/Time: 03/31/2017 3:46 PM
[2017-03-31] MEDS ORDERED: MIDAZOLAM HCL 5 MG/ML 1 ML VIAL IV ONE (16:00)
[2017-03-31] MEDS ORDERED: FENTANYL CITRATE INJ 50 MCG/1 ML 2 ML VIAL IV ONE (16:00)
[2017-03-31] MEDS ORDERED: NICOTINE 21 MG/24 HR TDSY TD PRN (16:45)
[2017-03-31] MEDS ORDERED: LEVOFLOXACIN / D5W 750 MG in PREMIXED IN D5W 150 ML IV SCH (19:00)
--- NOTE | 2017-03-31 22:01 | DIAGNOSTIC IMAGING REPORT ---
HEAD COMBO CLINICAL HISTORY: 56 years-old Female presenting with lung mass; evaluate for mets. TECHNIQUE: Multidetector CT imaging of the head was performed before and after the administration of intravenous contrast. IV contrast: 116 mL of Optiray 320. A dose lowering technique was used consistent with the principles of ALARA (as low as reasonably achievable). COMPARISON: None. CT DOSE (mGy.cm): The estimated cumulative dose is 1326.78 mGy.cm. FINDINGS: Academic Coach topogram: Unremarkable. Ventricles and sulci normal in size. Brain parenchyma normal in appearance with preserved jackson-white differentiation. No mass effect or midline shift. No hemorrhage or acute territorial infarct. No extra-axial fluid collection. Paranasal sinuses and mastoid air cells clear. Calvarium intact. No abnormal parenchymal enhancement. Intracranial vasculature grossly patent. IMPRESSION: 1. No acute intracranial pathology. No abnormal enhancement. Electronically signed by: Amari sOorio M.D. 03/31/2017 9:59 PM Dictated Date/Time: 03/31/2017 9:55 PM
--- NOTE | 2017-03-31 22:12 | DIAGNOSTIC IMAGING REPORT ---
ABD/PELVIS IV AND ORAL CONT CLINICAL HISTORY: 56 years-old Female presenting with Lung Mass; staging imaging. TECHNIQUE: Multidetector CT of the abdomen and pelvis was performed after the administration of oral and intravenous contrast. IV contrast: 116 mL of Optiray 320. A dose lowering technique was used consistent with the principles of ALARA (as low as reasonably achievable). COMPARISON: 10/29/2012. CT DOSE (mGy.cm): The estimated cumulative dose is 1326.78 inclusive of the head CT. FINDINGS: Transportation Worker topogram: Unremarkable. Lung bases: Dependent opacities in the right lung base, likely atelectasis or scarring., Increased from prior. Normal heart size. Trace right and small left pleural effusions. Apparent solid 4 mm nodule at the left lung base (series 5 image 11), which was not on most recent chest CT from 03/30/2017, possibly artifactual. Liver: Normal morphology. Perfusional variation noted along the fissure for the ligamentum teres. No focal lesion. Patent hepatic vasculature. Biliary: No intrahepatic or extrahepatic biliary ductal dilatation. Normal gallbladder. Pancreas: Normal. Spleen: Normal. Adrenal glands: New lobular heterogeneous enhancing mass spanning an replacing the left adrenal gland. This mass measures up to 6.6 cm in maximal axial dimension. Right adrenal gland normal. Kidneys and ureters: Small peripheral wedgelike regions of hypodensity in the kidneys (on the right series 5 image 152, and on the left image 145 and 130). These have configurations which could represent renal infarcts. No hydronephrosis. Evaluation of the ureters is limited due to diffuse edema. Bladder: Opacification with excreted contrast. Bladder normal. Pelvic organs: Uterus and ovaries normal. Bowel: Normal. No bowel obstruction. Peritoneal cavity: Small perihepatic ascites. Diffuse mesenteric edema. Lymph nodes: Allowing for the presence of diffuse edema, no gross lymphadenopathy. Vasculature: Atherosclerosis of the normal caliber abdominal aorta. IVC patent. Abdominal wall: Anasarca. Musculoskeletal: Degenerative changes of the spine. No destructive osseous lesion. IMPRESSION: 1. Large left adrenal mass highly concerning for metastatic involvement. 2. Small peripheral wedgelike regions of hypodensity in the kidneys bilaterally. This raises concern for small bilateral renal infarcts. 3. Diffuse anasarca and mesenteric edema could reflect a low protein state. 4. Small ascites. 5. Trace right and small left pleural effusions with dependent atelectasis. Electronically signed by: Amari Osorio M.D. 03/31/2017 10:11 PM Dictated Date/Time: 03/31/2017 10:00 PM
[2017-04-01] VITALS (7 sets, daily range): BP systolic 109–114; BP diastolic 66–67; PULSE 80–94; TEMP 36.7; O2SAT 91–99
[2017-04-01] MEDS ORDERED: VANCOMYCIN INJ 750 MG in SODIUM CHLORIDE 0.9% 250ML 250 ML IV SCH ×2
[2017-04-01] MEDS: ALBUT/IPRATROP 3MG/0.5MG NEB 3 ML VIAL INH SCH ×4 (00:02→15:20)
[2017-04-01] MEDS: PIPERACILL/TAZOBAC IV 3.375 GM in DEXTROSE 5% 100ML IV SCH ×2 (03:14→09:53)
--- NOTE | 2017-04-01 06:55 | Family Medicine Progress Note ---
Progress Note Date of Service Apr 01, 2017. Objective Vital Signs Date Time Temp Pulse Resp B/P (MAP) Pulse Ox O2 Delivery O2 Flow Rate FiO2 04/01/17 00:02 82 18 95 Nasal Cannula 2.0 03/31/17 23:15 Nasal Cannula 2.0 03/31/17 23:06 36.5 83 16 102/64 (77) 97 Nasal Cannula 2.0 03/31/17 20:05 36.5 81 16 90/49 (63) 96 Nasal Cannula 2.0 03/31/17 19:45 Nasal Cannula 03/31/17 19:15 36.4 83 20 95/59 (71) 95 Nasal Cannula 2.0 03/31/17 18:27 79 20 102/66 (78) 94 Nasal Cannula 2.0 03/31/17 17:27 77 20 106/68 (81) 95 Nasal Cannula 2.0 03/31/17 16:57 36.7 82 20 101/60 (74) 93 Nasal Cannula 2.0 03/31/17 16:27 36.7 86 20 103/65 (78) 93 Nasal Cannula 2.0 03/31/17 16:00 Nasal Cannula 2.0 03/31/17 15:57 36.8 86 20 101/61 (74) 92 Nasal Cannula 2.0 03/31/17 15:35 85 20 98/52 92 Nasal Cannula 5.0 03/31/17 15:30 85 20 93/53 96 Non-Rebreather 15.0 03/31/17 15:25 86 20 100/52 94 Non-Rebreather 15.0 03/31/17 15:20 82 20 96/52 94 Non-Rebreather 15.0 03/31/17 15:15 86 20 128/57 92 Non-Rebreather 15.0 03/31/17 15:10 88 20 106/54 94 Non-Rebreather 15.0 03/31/17 15:05 89 20 103/48 90 Non-Rebreather 15.0 03/31/17 15:00 92 20 129/63 90 Mask 15.0 03/31/17 14:55 88 20 101/52 89 Mask 15.0 03/31/17 14:50 82 20 117/52 91 Mask 15.0 03/31/17 14:45 86 20 109/56 92 Mask 15.0 03/31/17 14:40 84 20 104/54 93 Mask 15.0 03/31/17 14:35 83 20 102/62 92 Mask 15.0 03/31/17 14:30 85 20 106/54 91 Mask 15.0 03/31/17 14:25 85 20 97/50 91 Mask 15.0 03/31/17 14:20 82 20 94/48 92 Mask 15.0 03/31/17 14:15 80 20 94/51 95 Mask 15.0 03/31/17 14:10 79 20 91/50 96 Mask 15.0 03/31/17 14:05 80 20 97/50 95 Mask 15.0 03/31/17 14:00 82 20 102/50 95 Mask 15.0 03/31/17 13:55 83 20 101/51 93 Mask 15.0 03/31/17 13:50 81 20 103/52 93 Mask 4.0 03/31/17 13:45 80 20 105/55 96 Mask 4.0 03/31/17 13:40 81 20 114/56 97 Mask 4.0 03/31/17 13:35 75 20 112/54 97 Mask 4.0 03/31/17 13:30 83 20 107/56 97 Mask 4.0 03/31/17 13:25 78 20 119/53 99 Mask 4.0 03/31/17 13:20 73 20 104/58 100 Mask 8.0 03/31/17 13:15 75 20 109/59 100 Mask 8.0 03/31/17 13:12 75 20 112/60 99 Room Air 03/31/17 12:48 36.6 67 18 104/57 99 Nasal Cannula 2.0 03/31/17 12:00 Nasal Cannula 2.0 03/31/17 11:23 36.6 67 18 104/57 (73) 99 Room Air 03/31/17 08:00 Nasal Cannula 2.0 03/31/17 07:56 36.5 70 18 104/62 (76) 96 Nasal Cannula 2.0 Resident Tracking Resident Involvement: Resident Care Provided Care Provided: Adult Hospital Medicine
[2017-04-01] MEDS: NICOTINE 14 MG/24 HR TDSY TD SCH (07:40)
--- NOTE | 2017-04-01 08:02 | PULMONARY PROGRESS NOTE ---
DATE: 04/01/2017 TIME: 07:25 a.m. SUBJECTIVE: The patient offers no complaints. She does not remember anything about the bronchoscopy. She coughed up just a little blood after the procedure. She denies significant shortness of breath. She denies pain. The patient looks depressed. She did not speak a whole lot. She did indicate that she has no primary doctor and she has not seen a physician for a quite some time before coming to the Emergency Room. She admits her appetite has been down. She has lost about 20 pounds. OBJECTIVE: GENERAL: She was in no distress. VITAL SIGNS: Temperature is 36.7. Heart rate is 82 per minute. The rhythm is regular. Blood pressure is 109/66. NECK: No lymphadenopathy was palpable in the neck. CHEST: Auscultation of the lung rubio reveals the breath sounds to be decreased on the left compared with the right. There is a few scattered rhonchi heard. Respiratory rate was 18 breaths per minute. Saturation done by myself was 96% on 2 liter nasal cannula. EXTREMITIES: Show curvature of her nails. She does not have typical whitening of the distal adams of the fingers, but I think she has mild clubbing. She indicates that the shape of her fingers have changed within the past 1 year. CBC from today is pending. Likewise, chemistry is pending as well. I discussed the case with Dr. Ascencio after the bronchoscopy. He did find evidence of endobronchial tumor in the left upper lobe. The preliminary from pathology was that there were malignant cells suspicious for squamous cell, but this is not a final report. They have to do the appropriate cuts to make a definitive diagnosis, which likely will be ready early in the week. Dr. Ascencio did say that she had a lot of purulent secretions in the left upper lobe. He did do washings of this area. He suspects she has a postobstructive pneumonia. This would account for the significant elevation of her white count. IMPRESSIONS: 1. Left upper lobe mass -- suspicious for carcinoma. 2. Hemoptysis secondary to #1. 3. Post-obstructive pneumonia. 4. Probable metastatic disease to the mediastinum and adrenal glands. 5. Hyponatremia. From a pulmonary perspective, the patient seems fairly stable. When she is discharged, she should go home with antibiotics. She has been on piperacillin/tazobactam. At home, she could be given a course of Augmentin. After discharge, she should be followed up with Dr. Ascencio in several days, towards the end of this coming week would be good. I did explain to the patient that the findings were suggestive for a lung tumor that likely had some malignant cells in, but that we are waiting for the final report. She obviously will need ultimately referrals to radiation oncology and medical oncology. If discharged, it is anticipated would check her oxygen status at rest and with exertion with a 2 step. I did try to encourage the patient to take everything one step at a time and wait for subsequent definitive diagnosis and workup and ultimately to see what therapy can be recommended for her.
[2017-04-01 08:28] LABS: HEMATOCRIT 36.2 % (37-47); MEAN CELL VOLUME 93.5 fL (80-100); MEAN CORPUSCULAR HGB CONC 33.1 g/dl (32-36); MEAN PLATELET VOLUME 8.9 fL (7.4-10.4); PLATELET COUNT 511 K/uL (130-400); RED BLOOD COUNT 3.87 M/uL (4.2-5.4); WHITE BLOOD COUNT 31.61 K/uL (4.8-10.8)
[2017-04-01 08:39] LABS: BASO % 0.1 %; BASO ABS # 0.02 K/uL (0-0.2); COMPLETE YES; EOS % 0.2 %; IG% 0.5 %; LYMPH % 8.9 %; LYMPH ABS # 2.82 K/uL (1.2-3.4); MONO % 5.8 %; NEUT % 84.5 %; VACUOLIZATION 1+
[2017-04-01 08:49] LABS: BUN/CREATININE RATIO 20.5 (10-20); CALCIUM 11.8 mg/dl (8.5-10.1); CREATININE 0.73 mg/dl (0.60-1.20); POTASSIUM 4.4 mmol/L (3.5-5.1)
[2017-04-01 08:52] LABS: ALB/GLOB RATIO 0.5 (0.9-2)
--- NOTE | 2017-04-01 09:02 | SURGERY PROGRESS NOTE ---
DATE: 04/01/2017 DATE: 04/01/2017 Ms. Emanuel was seen today. This is a 56-year-old with metastatic lung cancer. She and I had a giancarlo discussion about this today and I told her this is extensive disease. We do not have the final diagnosis, but the pathologist looked at the biopsies from the bronchoscopy yesterday and feels that we are dealing with a carcinoma. My feeling is we are probably dealing with nonsmall cell lung cancer in her left upper lobe, probably squamous cell carcinoma which has occluded her airway. Dr. Ascencio noted pus when she got into this and her white count is elevated at 36,610. In addition, her calcium has been high at 12, and it is actually 11.6 yesterday. She probably has metastatic disease. She is also hyponatremic which may be a mild SIADH from her carcinoma. At any rate, despite her high white count she has been relatively stable and is currently on room air with 94% saturations. She has been afebrile. I would consider allowing her go home on antibiotics. Her grandchildren are visiting from out of town. I think it is important to realize this patient has markedly metastatic disease and has lost over 20% of her body weight in the last 6 weeks. Her adrenal gland is huge and she has stage IV disease. She and I discussed this quite frankly today.
[2017-04-01] MEDS ORDERED: OXYC-57 PO (13:54)
[2017-04-01] MEDS ORDERED: VNTHFA/IN INH (13:54)
[2017-04-01] MEDS ORDERED: LEVO-366 PO (13:54)
[2017-04-01] MEDS ORDERED: NICO14DI5 TD (13:54)
--- NOTE | 2017-04-01 13:55 | Discharge Instructions ---
Discharge Instructions Date of Service Apr 01, 2017. Admission Reason for Admission: Hemoptysis, Lung Cancer Discharge Discharge Diagnosis / Problem: Lung cancer Discharge Goals Goal(s): Improve function, Improve disease control, Learn about illness, Diagnostic testing, Therapeutic intervention, Prevent Disease Progression Activity Recommendations Activity Limitations: as noted below Lifting Limitations: gradually increase as tolerated . Instructions / Follow-Up Instructions / Follow-Up You were admitted to hospital with a prolonged history blood in cough and evidence that you were not getting enough oxygen. You were put on oxygen support to help improve this. Chest xray and CT imaging showed a mass in the chest that was concerning in addition to infection surrounding the mass. In addition to starting antibiotics, a bronchoscopy was performed to collect samples from the lungs. The results of these samples will both help to determine the type of bugs growing in the lungs, and also help to identify the type of cells that make up the mass. These results are pending on discharge. On discharge, you will not need to be sent home with oxygen, as you were getting enough oxygen while walking. However, you have been prescribed two inhalers. The first is called tiotropium ( Spiriva). Please take 2 puffs of this inhaler every morning regardless of how you feel as this works over the terminal worker to keep your airways open. The other inhaler is albuterol (Ventolin) is to be used as a rescure inhaler only when you are feeling short of breath, like with activity. For the lung infection (pneumonia), you will be prescribed a prolonged course of antibiotics to help assist the body to clear the infection. Levaquin ( levofloxacin) is an antibiotic that you will take once daily for another 13 days (total course of antibiotics is 14 days). We advise you follow up with your family doctor this week to make sure your symptoms have remained stable and so you have some continuity of care. Please tell your family doctor if you are having any fevers, chills, sweats, worsening breathing, new leg pain, or if any new concerns arise. If there are any ongoing concerns, a few blood tests including a complete blood count may be warranted. For the lung mass, a referral has been put in for oncology consult as well as a radiation therapy consult. They will call to schedule an appointment with you, most likely once the culture results have come in. They will help facilitate staging of the condition as well as determine what the best course of therapy would entail. Please call the hospital or let your family physician know if you have not heard about an appointment time within 1 week of discharge. It is also highly advisable that you stop smoking at this time. If you are having difficulty in doing this, discussion with your family doctor may be helpful in helping you determine other strategies that could work for you. Thank you for allowing us to participate in your care. Current Hospital Diet Patient's current hospital diet: Regular Diet Discharge Diet Recommended Diet: Regular Diet Pending Studies Studies pending at discharge: yes List of pending studies: Bronchial washing cultures and blood cultures Work Instructions Return To Work: after follow-up Additional Instructions: Patient is advised to refrain from going to work for at least two weeks, given the smoking environment can cause Medical Emergencies . Who to Call and When: Medical Emergencies: If at any time you feel your situation is an emergency, please call 911 immediately. . Non-Emergent Contact Non-Emergency issues call your: Primary Care Provider Contact Number: Dr. Sotomayor [phone] . . "Provider Documentation" section prepared by Jade Sotomayor. . VTE Core Measure Inpt VTE Proph given/why not?: Janak Perez, SCD's
[2017-04-01] MEDS ORDERED: TIOT1SPR INH (14:43)
--- NOTE | 2017-04-01 22:22 | Discharge Summary ---
Discharge Summary Date of Service Apr 01, 2017. (Alka. Sotomayor MD) Discharge Summary Admission Date: Mar 30, 2017 at 21:54 Discharge Date: Apr 01, 2017 Discharge Disposition: Home Principal Diagnosis: lung cancer Immunizations: Have You Had Influenza Vaccine: Unknown History of Tetanus Vaccine?: Unknown History of Pneumococcal: Unknown History of Hepatitis B Vaccine: Unknown (Alka. Sotomayor MD) Medication Reconciliation New Medications: Albuterol Hfa (Ventolin Hfa) 200 Puffs/56056 Mcg Aers 2-4 PUFFS INH Q6H for SOB/Wheezing, #1 INHALER 2 Refills Levofloxacin (Levaquin) 500 Mg Tab 500 MG PO DAILY for 13 Days, #13 TAB Oxycodone/Acetaminophen 5MG/325MG (Percocet 5MG/325MG) Tab 1 TAB PO QID PRN for Pain for 30 Days, #20 TAB PAIN Tiotropium [place] (Spiriva Respimat) 2.5 Mcg/Act Spr 2 PUFF INH DAILY for 30 Days, #1 INHALER 2 Refills Nicotine (Nicoderm Cq 14MG Patch) 14 Mg/24 Hr Dis 1 PATCH TD QAM, #20 PATCH 2 Refills Continued Medications: Ibuprofen (Advil) 200 Mg Tab 400-600 MG PO Q6H PRN for Pain or Fever, TAB Discharge Exam patient feeling well this morning, denies any acute overnight events. She is currently saturating well on room air and not experiencing any dyspnea. She is still having cough productive of sputum streaked with blood, but says this is improved from previous. She denies any fever, chest pain, abdominal pain, calf swelling or tenderness. She is tolerating diet without nausea or vomiting. She is voiding and having bowel movements without issue. She became emotional when discussing plans to be home with her grandchildren this weekend. She would really like to go home if it is safe to do so. ROS otherwise unremarkable except as noted above. Physical Exam: General Appearance: WD/WN, no apparent distress Eyes: normal inspection ENT: hearing grossly normal Neck: supple, no adenopathy Respiratory/Chest: lungs clear, normal breath sounds, no respiratory distress, no accessory muscle use, + decreased breath sounds (on left) Cardiovascular: regular rate, rhythm, no edema, no murmur, normal peripheral pulses Abdomen / GI: normal bowel sounds, non tender, soft Extremities: normal inspection, no calf tenderness, no pedal edema Neurologic/Psychiatric: alert, oriented x 3, + depressed affect Skin: normal color, warm/dry, no rash (Alka. Sotomayor MD) Hospital Course 56F with a 40pk year smoking history, self insured, presented with hemoptysis x 6 months and hypoxia. Chest xray and CT imaging showed a mass in the chest that was concerning for metastatic lung cancer in addition to left obstructive pneumonia. CT brain negative for acute intracranial pathology. CT abd/pelv showed Ilarge left adrenal mass highly concerning for metastatic involvement, small peripheral wedge-like regions of hypodensity in the kidneys bilaterally raising concern for small bilateral renal infarcts, diffuse anasarca and mesenteric edema, small ascites, and trace right and small left pleural effusions with dependent atelectasis. In addition to starting antibiotics, a bronchoscopy was performed to collect samples from the lungs, which are pending on discharge. Large left lung mass - Suspected lung primary; evidence of dissemination to the abdomen - Bronchial washing cultures pending - Outpatient consults to heme/onc and radiation therapy - Plugging in with PCP for close follow up Left Lobar Pneumonia with hypoxia - WBC 27 on arrival - Need for supplemental oxygen during admission, weaned - Received Levoquin, Vanco and Zosyn empirically - Discharged on (total) 14 day course of Levaquin. - 2 step confirmed no need for home oxygen Background COPD - Discharged with albuterol and tiotropium inhalers Chronic protein calorie malnutrition - Secondary to consumptive malignancy - Rehydrated with normal saline - Low albumin, likely has low prealbumin as well - Nutritional recommendation provided Hyponatremia - Admitting Sodium 132 - May be due to chronic malnutrition secondary to malignancy - DC'd IVF, with Na+ in acceptable range Hypercalcemia - Calcium level was 12, concerning for likely metastatic disease to the bone - Serum PTH is low, considered paraneoplastic syndrome - s/p 60 mg IV pamidronate 1 dose Elevated alkaline phosphatase - The patient does not have any right upper quadrant tenderness or findings suggestive of biliary obstruction - Considered the possibility of metastatic disease to the biliary tree of the liver Chronic tobacco abuse - 14 g nicotine patch - Advised for smoking cessation. To be further discussed with PCP Increased consumption without evidence of alcohol abuse - No evidence of withdrawal, as such no need to institute alcohol withdrawal protocol DVT Prophylaxis - SCD Knee, CM Hose - Held off on pharmacological anticoagulating the patient, given history of hemoptysis Disposition - Med Surg - OT and PT evaluations Total Time Spent: Less than 30 minutes This includes examination of the patient, discharge planning, medication reconciliation, and communication with other providers. (Alka. Sotomayor MD) Resident Physician Supervision Note: I interviewed and examined the patient. Discussed with Dr. Sotomayor and agree with findings and plan as documented in the note. Any exceptions or clarifications are listed here: None Documented By: Brian Sifuentes feeling better really wants to go home extensive discussion w pt and on both ongoign treatment/managemetn of post obstructive pneumonia and on ongoing w/u and setting up for appropriate managemetn of lung cancer they express good understanding of all involved with future care vitals noted, thin and fatigued appearing but no distress, breathing unlabored no pallor or icterus post obstructive pneumonia w sepsis and hypoxia - improved on all counts except for WBC - but suspect some of this elevation may also be demargination from procedure --- stable for home -- CBC in short order as outpt, finish abx, close PCP f/u hemoptysis/new lung cancer - await pathology -then for heme/onc and rads/onc followup, possible thoracic and pulmonary based on need and on further findings. to be set up for this coming week otherwise as above Total Time Spent: Greater than 30 minutes (Brian Sifuentes, D.O.) Discharge Instructions Please refer to the electronic Patient Visit Report (Discharge Instructions) for additional information. (Alka. Sotomayor MD) Additional Copies To Augustus Carter MD; Veeral. Kern MD; Alka. Sotomayor MD Resident Tracking Resident Involvement: Resident Care Provided Care Provided: Adult Hospital Medicine (Alka. Sotomayor MD)
[2017-04-02] MEDS ORDERED: VANCOMYCIN TROUGH ONE (11:30)
== END 2017-04-01 17:20 | disposition home or self-care (01) | DRG 166 ==
LOC: C.EDB 18:38 → C.2T 21:54 → ENRESERV 22:36 → C.MSW 03-31 19:55
PROVIDERS: ADMIT Student in an Organized Health Care Education/Training Program; ATTEND Family Medicine
PROC: 07B74ZX Excision of Thorax Lymphatic, Percutaneous Endoscopic Approach, Diagnostic (ICD-10-PCS; principal; 2017-03-31)
PROC: 0B9G8ZX Drainage of Left Upper Lung Lobe, Via Natural or Artificial Opening Endoscopic, Diagnostic (ICD-10-PCS; principal; 2017-03-31)
PROC: 0BBG8ZX Excision of Left Upper Lung Lobe, Via Natural or Artificial Opening Endoscopic, Diagnostic (ICD-10-PCS; principal; 2017-03-31)
DX: C34.12 Malignant neoplasm of upper lobe, left bronchus or lung (principal); J18.9 Pneumonia, unspecified organism; J44.1 Chronic obstructive pulmonary disease with (acute) exacerbation; C79.72 Secondary malignant neoplasm of left adrenal gland; E87.1 Hypo-osmolality and hyponatremia; E46 Unspecified protein-calorie malnutrition; C78.1 Secondary malignant neoplasm of mediastinum; Z85.118 Personal history of other malignant neoplasm of bronchus and lung; F17.200 Nicotine dependence, unspecified, uncomplicated; J98.4 Other disorders of lung; E83.52 Hypercalcemia

== ENCOUNTER → 2017-04-17 | Outpatient (CLI) | payer OTHER ==
[~2017-04-17] MED LIST changes: +ATROVENT; +BENZ1CAP90 PO; +FENT25DI10 TD; +NICO14DI31 TD; +ONDA4TAB46 PO; -ONDA4TAB7 SL; +OXYC-57 PO; +PROC1TAB5 PO; +TIOT1SPR INH; +VNTHFA/IN INH
--- NOTE | 2017-04-17 16:31 | DIAGNOSTIC IMAGING REPORT ---
PET/CT SKULL-THIGH CLINICAL HISTORY: NON SMALL CELL LUNG CA COMPARISON STUDY: CT scan dated 03/31/2017, and 03/30/2017 FINDINGS: The patient was injected with 11.4 mCi of F 18 labeled FDG. Following the standard induction phase, PET/CT scanning is performed from the skull base to the upper thigh region. Within the upper Within the neck, there is a small FDG avid focus (SUV maximum of 2.4) within the right retromandibular region. No corresponding mass is visualized on the CT scan. There is a FDG avid right supraclavicular lymph node measuring 9 mm. This has an SUV maximum of 2.4. Faintly FDG avid left supra clavicular lymph nodes are also present. With thin the chest, there is a large partially necrotic intensely FDG avid left upper lobe mass with extension to the mediastinum. This mass measures approximately 7.5 cm, and has an SUV maximum of 12.2. There is an FDG avid subcarinal lymph node with SUV maximum of 5.3. There is an FDG avid 6 mm right lower lobe pulmonary nodule with FDG maximum of 1.8. Within the abdomen, there is an intensely FDG avid 7.7 cm left adrenal mass with an SUV maximum of 10 there are no FDG avid hepatic lesions. There are no FDG avid splenic masses. There is physiologic urinary tract and bowel activity. There is an FDG avid focus within the sigmoid colon with SUV maximum of 4.6. No corresponding mass is visualized in the CT scan. There is also an FDG avid focus in the region of the cecum with SUV maximum of 3.4. IMPRESSION: 1. 7.5 cm partially necrotic intensely FDG avid left upper lobe pulmonary mass with extension to the mediastinum and left hilum. There is secondary narrowing/obstruction of the left lower lobe bronchus. This has an SUV maximum of 12.2 2. FDG avid subcarinal lymph node with SUV maximum of 5.3 3. FDG avid 6 mm right lower lobe point nodule suspicious for a metastatic deposit 4. FDG avid supraclavicular lymph nodes and right retromandibular focus without corresponding CT finding 5. Intensely FDG avid 7.7 cm left adrenal mass with SUV maximum of 10. This consistent with a metastatic deposit 6. Nonspecific focal areas of colonic activity involving the sigmoid colon and cecum. Electronically signed by: Souleymane Winters M.D. 04/17/2017 4:30 PM Dictated Date/Time: 04/17/2017 4:15 PM
== END | disposition home or self-care (01) ==
LOC: C.PET 12:11
PROVIDERS: ATTEND Internal Medicine Hematology & Oncology
DX: C34.90 Malignant neoplasm of unspecified part of unspecified bronchus or lung (principal)

== ENCOUNTER → 2017-08-04 | Outpatient (CLI) | payer OTHER ==
[~2017-08-04] MED LIST changes: -OXYC-57 PO
--- NOTE | 2017-08-10 12:21 | CODING QUERY NO DIAGNOSIS ---
: 1960 Valid Physician Order Needed A valid physician order must be submitted in order to properly bill for the service(s) provided, including date of service(s), valid diagnosis, and physician signature. If these tests are done on a recurring basis the original physician order must be submitted in order to code and bill for the service(s) provided. Please fax us the original, signed physician order so that we may expedite billing to [phone] DOS 08/04/17 * PD-L1 [id number] Pembrolizumab Thank you Swapna Crowley [facility] Information Management
== END | disposition home or self-care (01) ==
LOC: C.PATHSPEC 13:23
PROVIDERS: ATTEND Internal Medicine Hematology & Oncology
DX: C34.12 Malignant neoplasm of upper lobe, left bronchus or lung (principal)

== ENCOUNTER → 2017-08-07 | Outpatient (CLI) | payer OTHER ==
[~2017-08-07] MED LIST changes: +OPTIRAY 320 IV PRN
--- NOTE | 2017-08-07 10:43 | DIAGNOSTIC IMAGING REPORT ---
CHEST CT WITH CONTRAST CT DOSE: 215.17 mGy.cm HISTORY: Lung cancer. TECHNIQUE: Multiaxial CT images of the chest were performed following the intravenous administration of contrast. A dose lowering technique was utilized adhering to the principles of ALARA. COMPARISON: Head CT 04/17/2017. Chest CT 03/30/2017. FINDINGS: Small amount of mucoid material within the trachea and bronchus intermedius. No pneumothorax. Mild emphysema. Stable 2 mm nodule within the right lung apex on image 56. 11 X 9 mm nodule within the right lower lobe on image 258 has increased in size. Increase in size in a 13 x 8 mm irregular nodule within the right lower lobe on image 182. Increase in size and number within multiple left lower lobe pulmonary nodules. Dominant nodule measures 7 mm. Complete collapse of the left upper lobe with a cavitary mass. The mass has decreased in size and measures approximate 5.3 cm. The mass extends into the left hilum and partially surrounds the left distal main pulmonary artery. There is mild narrowing of the distal left main pulmonary artery. Soft tissue extension into the AP window which has improved. The liver is unremarkable. An chronic left adrenal gland mass has slightly decreased in size and measures 6.6 cm. Abnormal enhancement within the spleen consistent with splenic infarcts. This has improved. No hepatic masses identified. Loculated small left pleural effusion seen anteriorly. No suspicious lytic or blastic osseous lesions. IMPRESSION: 1. Overall, mixed response compared to the prior study. 2. Decrease in size in the 5.3 cm left upper lobe cavitary mass . 3. Increase in size and number of the bilateral pulmonary nodules consistent with metastatic disease. 4. Slight decrease in size in the necrotic left adrenal gland mass. Electronically signed by: Dontae Rodriguez M.D. 08/07/2017 10:42 AM Dictated Date/Time: 08/07/2017 10:15 AM
== END | disposition home or self-care (01) ==
LOC: C.CTS 09:31
PROVIDERS: ATTEND Internal Medicine Hematology & Oncology
DX: C34.12 Malignant neoplasm of upper lobe, left bronchus or lung (principal)

== ENCOUNTER 2018-01-14 14:56 | Inpatient (IN) | payer OTHER ==
[~2018-01-14] VITALS: Ht 160 cm; Wt 32.9 kg
[~2018-01-14 14:56] MED LIST changes: +AMOX875T PO; -OPTIRAY 320 IV PRN; +PROC10TA PO; -PROC1TAB5 PO
[2018-01-14] MEDS ORDERED: SODIUM CHLORIDE 0.9% 1000ML 1,000 ML IV ONE (15:05)
[2018-01-14] MEDS ORDERED: ONDANSETRON INJ 2 MG/ML 2 ML VIAL IV STA (15:08)
[2018-01-14] MEDS ORDERED: ALBUT/IPRATROP 3MG/0.5MG NEB 3 ML VIAL INH STA (15:08)
[2018-01-14] MEDS ORDERED: MoRPHine SULFATE 4 MG/ML 1 ML CARP\\VIAL IV PRN ×2 (15:15→17:30)
--- NOTE | 2018-01-14 15:37 | EMERGENCY ROOM VISIT NOTE ---
History Report prepared by Aroldo: Minnie Jefferson Under the Supervision of: Dr. Mingo Salinas D.O. First contact with patient: 15:03 Chief Complaint: OTHER COMPLAINT Stated Complaint: CANCER History of Present Illness The patient is a 57 year old female who presents to the Emergency Room with complaints of a worsening decreased appetite beginning 2 weeks ago. Per family, the patient was in the hospital 3-4 weeks ago with pneumonia. Since then, she hasn't been eating well or drinking much fluids. The patient has a history of lung cancer which was diagnosed in March 2017. The patient has not undergone any surgery for her cancer. She has undergone radiation and chemotherapy treatments. She just stated a new chemotherapy two weeks ago. The patient follows up with Dr. Fu-Oncology. She notes weight loss, a productive cough, and urinating more than normal. The patient denies any fever, vomiting, diarrhea, or urinary burning. The patient uses a fentanyl patch for her pain and she reports she just put a new one on. The patient uses inhalers which have not been helping. She is not on any blood thinners. The patient reports she still smokes 3/4 pack a day. Source of History: patient Onset: two weeks ago Position: other (generalized) Quality: other (decreased appetite) Timing: worsening Associated Symptoms: + cough, + urinary symptoms, No fevers, No nausea, No vomiting Review of Systems See HPI for pertinent positives & negatives. A total of 10 systems reviewed and were otherwise negative. Past Medical & Surgical Medical Problems: (1) Chronic pain (2) Hemoptysis (3) Hyponatremia (4) Hypoxia (5) Lung cancer (6) Protein-calorie malnutrition, severe Family History FHx: cancer Social History Smoking Status: Current Every Day Smoker Alcohol Use: occasionally Drug Use: none Marital Status: in relationship Housing Status: lives with significant other Occupation Status: employed Current/Historical Medications Scheduled Fentanyl (Duragesic), 1 PATCH TD [id number] Ipratropium [place] (Nasal) (Ipratropium [place]), 2 SPRAYS TANI TID Tiotropium [place] (Spiriva Respimat), 2 PUFF INH DAILY Scheduled PRN Albuterol Hfa (Ventolin Hfa), 2-4 PUFFS INH Q6H PRN for SOB/Wheezing Benzonatate (Tessalon Perles), 200 MG PO BID PRN for Cough Ibuprofen (Advil), 400-600 MG PO Q6H PRN for Pain or Fever Ondansetron Hcl (Zofran), 4 MG PO Q8 PRN for Nausea Prochlorperazine Maleate (Compazine), 20 MG PO QID PRN for Nausea or Vomiting Allergies Coded Allergies: No Known Allergies (Unverified , 01/14/18) Physical Exam Vital Signs Date Time Temp Pulse Resp B/P (MAP) Pulse Ox O2 Delivery O2 Flow Rate FiO2 01/14/18 17:31 109/57 01/14/18 17:30 70 Room Air 01/14/18 17:30 89 Oxymask 10.0 01/14/18 17:26 153 19 71 01/14/18 17:08 102 18 97/58 01/14/18 17:01 97/58 01/14/18 16:56 102 23 01/14/18 16:31 99/52 01/14/18 16:26 106 26 91 01/14/18 16:08 112/53 01/14/18 16:01 102/55 01/14/18 15:56 108 25 01/14/18 15:26 108 31 01/14/18 15:21 108 01/14/18 15:18 114/ 01/14/18 15:17 91 Room Air 01/14/18 14:59 36.6 80 18 78/47 98 Room Air Physical Exam GENERAL: Patient is awake, alert, and in no acute distress. Patient is resting comfortably and showing no signs of anxiety. Patient very frail and cachetic appearing. EYES: The conjunctivae are clear. The pupils are round and reactive. EARS, NOSE, MOUTH AND THROAT: The nose is without any evidence of any deformity. Mucous membranes are moist. Tongue is midline NECK: The neck is nontender and supple. RESPIRATORY: Diminished breath sounds throughout with scattered rhonchi. Upper expiratory wheezes noted. CARDIOVASCULAR: Regular rate and rhythm noted. There no murmurs rubs or gallops normal S1 normal S2 GASTROINTESTINAL: The abdomen is soft. Bowel sounds are present in all quadrants. Abdomen is nontender. MUSCULOSKELETAL/EXTREMITIES: There is no evidence of gross deformity. Full range of motion is noted in the hips and shoulders. SKIN: There is no obvious evidence of any rash. There are no petechiae, pallor or cyanosis noted. NEUROLOGIC: Patient is awake alert and oriented x3. Medical Decision & Procedures ER Provider Diagnostic Interpretation: Radiology results as stated below per my review and radiologist interpretation: CHEST ONE VIEW PORTABLE HISTORY: Sepsis COMPARISON: Chest 12/27/2017. FINDINGS: Bilateral pulmonary nodules are again noted consistent with the patient's history of metastatic disease. The heart is normal in size. Stable left pleural thickening. Small left pleural effusion has decreased in size. Improved aeration within the left lung and right midlung zone. Emphysema. No pneumothorax. Stable postoperative changes and scarlike densities within the left lung apex. No new focal lung consolidations. No evidence for pulmonary edema. IMPRESSION: 1. Improved aeration within the lungs. No new focal lung consolidations identified. 2. Small left pleural effusion has improved. 3. Pulmonary metastatic disease is again noted. Electronically signed by: Dontae Rodriguez M.D. Laboratory Results Test 01/14/18 15:30 01/14/18 15:58 Neutrophils % (Manual) 87.8 % Lymphocytes % (Manual) 2.6 % Monocytes % (Manual) 7.0 % Eosinophils % (Manual) 0.9 % Myelocytes % 1.7 % Neutrophils # (Manual) 37.15 K/uL (1.4-6.5) Total Absolute Neutrophils 37.15 K/uL (1.4-6.5) Lymphocytes # (Manual) 1.10 K/uL (1.2-3.4) Total Absolute Lymphocytes 1.10 K/uL (1.2-3.4) Monocytes # (Manual) 2.96 K/uL (0.11-0.59) Eosinophils # (Manual) 0.38 K/uL (0-0.5) Myelocytes # 0.72 K/uL (0-0) Hypochromasia PRESENT Target Cells 1+ Erythrocyte Sedimentation Rate 82 mm/hr (0-21) Prothrombin Time 12.0 SECONDS (9.0-12.0) Prothromb Time International Ratio 1.1 (0.9-1.1) Activated Partial Thromboplast Time 26.7 SECONDS (21.0-31.0) Partial Thromboplastin Ratio 1.0 Total Bilirubin 0.6 mg/dl (0.2-1) Aspartate Amino Transf (AST/SGOT) 20 U/L (15-37) Alanine Aminotransferase (ALT/SGPT) 7 U/L (12-78) Alkaline Phosphatase 328 U/L (45-117) Total Creatine Kinase 21 U/L (26-192) Creatine Kinase MB < 1.0 ng/ml (0.5-3.6) Creatine Kinase MB Ratio (0-3.0) Troponin I < 0.015 ng/ml (0-0.045) C-Reactive Protein 23.90 mg/dl (0-0.29) Total Protein 6.6 gm/dl (6.4-8.2) Albumin 1.7 gm/dl (3.4-5.0) Globulin 4.9 gm/dl (2.5-4.0) Albumin/Globulin Ratio 0.3 (0.9-2) Lipase 49 U/L (73-393) Venous Blood pH 7.39 (7.36-7.41) Venous Blood Partial Pressure CO2 44 mmHg (38.0-50.0) Venous Blood Partial Pressure O2 28 mmHg Venous Blood HCO3 26 mmol/L Venous Blood Oxygen Saturation < 60.0 % Venous Blood Base Excess 0.9 mEq/L Laboratory results per my review. Medications Administered Medications (Trade) Dose Ordered Sig/Bruce Route Start Time Stop Time Status Last Admin Dose Admin Sodium Chloride 1,000 ml @ 999 mls/hr Q1H1M ONCE IV 01/14/18 15:05 01/14/18 16:05 DC 01/14/18 15:05 999 MLS/HR Albuterol/ Ipratropium (Duoneb) 3 ml NOW STAT INH 01/14/18 15:08 01/14/18 15:10 DC 01/14/18 15:36 3 ML Morphine Sulfate (MoRPHine SULFATE INJ) 4 mg Q15M PRN IV 01/14/18 15:15 01/14/18 20:06 DC 01/14/18 16:23 4 MG Ondansetron HCl (Zofran Inj) 4 mg NOW STAT IV 01/14/18 15:08 01/14/18 15:10 DC 01/14/18 16:14 4 MG Levofloxacin (Levaquin / D5W) 750 mg NOW STAT IV 01/14/18 16:54 01/14/18 16:55 DC 01/14/18 17:06 750 MG Lactated Ringer's 1,000 ml @ 999 mls/hr Q1H1M STAT IV 01/14/18 16:54 01/14/18 17:54 DC 01/14/18 17:05 999 MLS/HR ECG Per My Interpretation Indication: weakness Rate (beats per minute): 110 Rhythm: sinus tachycardia Findings: no ectopy, other (no acute ST segments) Comparison ECG Date: 12/25/17 Change: no significant change ED Course 1505: The patient was evaluated in room B3B. A complete history and physical examination were performed. Ordered NSS 1,000 ml @ 999 mls/hr IV. 1508: Ordered Zofran Inj 4 mg IV, Duoneb 3 ml INH. 1515: Ordered Morphine Sulfate 4 mh IV. 1547: I updated the patient. She still does not have an IV in place. 1607: Nursing was able to get a 24 srinivas IV in the patient. 1613: I placed a 18 srinivas IV in the patient's left upper arm. 1654: Ordered Lactated Ringer's 1000 ml @ 999 mls/hr IV, Levofloxacin 750 mg IV. 1705: I discussed the patient's case with Dr. Gallardo. The patient will be evaluated for further management. 1709: I updated the patient on her test results. She is agreeable to the treatment plan. Medical Decision Differential diagnosis: Etiologies such as metabolic, infection, hypo/hyperglycemia, electrolyte abnormalities, cardiac sources, intracerebral event, toxicologic, neurologic, as well as others were entertained. Nursing notes reviewed. Additional history was obtained from the patient's daughter. The patient is a 57-year-old female who presented to the emergency department for an evaluation of cough. The patient had generalized weakness difficulty breathing and cough. She has a history of lung cancer. She was treated with chemotherapy approximately 2 weeks ago. The patient did not have a fever but she was hypotensive. She had significant difficulty breathing but does have continued smoking as well as a COPD history to the best I can tell. The patient was treated with IV fluids and IV antibiotics. She was also given DuoNeb treatments. On subsequent reevaluation she was feeling much better. I discussed patient's laboratory and radiographic studies with her. Because of her overall condition I discussed her case with the on-call [facility] hospitalist group. They have agreed to evaluate the patient in the emergency department for further management and disposition. Medication Reconcilliation Current Medication List: was personally reviewed by me Blood Pressure Screening Patient's blood pressure: Low blood pressure Consults Time Called: 1700 Consulting Physician: Dr. Gallardo Returned Call: 1705 I discussed the patient's case with Dr. Gallardo. The patient will be evaluated for further management. Impression Primary Impression: Pneumonia Additional Impressions: Hypotension Weakness Hyponatremia Scribe Attestation The scribe's documentation has been prepared under my direction and personally reviewed by me in its entirety. I confirm that the note above accurately reflects all work, treatment, procedures, and medical decision making performed by me. Departure Information Dispostion Being Evaluated By Hospitalist Referrals Allison Dickson M.D. (PCP) Patient Instructions [facility] Problem Qualifiers Primary Impression: Pneumonia Pneumonia type: due to unspecified organism Laterality: unspecified laterality Lung location: unspecified part of lung Qualified Codes: J18.9 - Pneumonia, unspecified organism Additional Impressions: Hypotension Hypotension type: unspecified hypotension type Qualified Codes: I95.9 - Hypotension, unspecified
[2018-01-14] MEDS ORDERED: VNTHFA/IN INH (15:49)
[2018-01-14] MEDS ORDERED: IPRA0.06 NAE (15:49)
--- NOTE | 2018-01-14 16:05 | DIAGNOSTIC IMAGING REPORT ---
CHEST ONE VIEW PORTABLE HISTORY: Sepsis COMPARISON: Chest 12/27/2017. FINDINGS: Bilateral pulmonary nodules are again noted consistent with the patient's history of metastatic disease. The heart is normal in size. Stable left pleural thickening. Small left pleural effusion has decreased in size. Improved aeration within the left lung and right midlung zone. Emphysema. No pneumothorax. Stable postoperative changes and scarlike densities within the left lung apex. No new focal lung consolidations. No evidence for pulmonary edema. IMPRESSION: 1. Improved aeration within the lungs. No new focal lung consolidations identified. 2. Small left pleural effusion has improved. 3. Pulmonary metastatic disease is again noted. Electronically signed by: Dontae Rodriguez M.D. 01/14/2018 4:03 PM Dictated Date/Time: 01/14/2018 4:01 PM
[2018-01-14 16:08] LABS: INR 1.1 (0.9-1.1); PTT PATIENT 26.7 SECONDS (21.0-31.0)
[2018-01-14 16:35] LABS: ALBUMIN 1.7 gm/dl (3.4-5.0); ALKALINE PHOSPHATASE 328 U/L (45-117); ALT/SGPT 7 U/L (12-78); AST/SGOT 20 U/L (15-37); BLOOD UREA NITROGEN 17 mg/dl (7-18); CALCIUM 9.7 mg/dl (8.5-10.1); CARBON DIOXIDE 26 mmol/L (21-32); CKMB < 1.0 ng/ml (0.5-3.6); CREATININE 0.75 mg/dl (0.60-1.20); GLUCOSE 66 mg/dl (70-99); LIPASE 49 U/L (73-393); POTASSIUM 3.9 mmol/L (3.5-5.1); SODIUM 128 mmol/L (136-145); TOTAL PROTEIN 6.6 gm/dl (6.4-8.2)
[2018-01-14 16:44] LABS: HEMOGLOBIN 9.2 g/dL (12.0-16.0); MEAN CELL VOLUME 88.1 fL (80-100); MEAN CORPUSCULAR HGB CONC 31.7 g/dl (32-36); MEAN PLATELET VOLUME 11.5 fL (7.4-10.4); PLATELET COUNT 529 K/uL (130-400); RED CELL DISTRIBUTION WIDTH CV 18.2 % (11.5-14.5); RED CELL DISTRIBUTION WIDTH SD 58.6 fL (36.4-46.3); WHITE BLOOD COUNT 42.31 K/uL (4.8-10.8)
[2018-01-14] MEDS ORDERED: LACTATED RINGER'S 1000ML 1,000 ML IV STA (16:54)
[2018-01-14] MEDS ORDERED: LEVAQUIN 750MG / 150ML D5W IV STA (16:54)
[2018-01-14] MEDS ORDERED: ALBUT/IPRATROP 3MG/0.5MG NEB 3 ML VIAL INH PRN (17:15)
[2018-01-14] MEDS ORDERED: ONDANSETRON 4 MG TAB PO PRN (17:15)
[2018-01-14] MEDS ORDERED: ONDANSETRON INJ 2 MG/ML 2 ML VIAL IV PRN (17:15)
[2018-01-14] MEDS ORDERED: MAGNESIUM HYDROXIDE SUSP 30 ML UDC PO PRN (17:15)
[2018-01-14] MEDS ORDERED: ALUMINUM/MAGNESIUM/SIMETH (MAALOX MAX) 30 ML UDC PO PRN (17:15)
[2018-01-14] MEDS ORDERED: ACETAMINOPHEN 325 MG TAB PO PRN (17:15)
--- NOTE | 2018-01-14 17:20 | History and Physical ---
History & Physical Date & Time of Service: Jan 14, 2018 at 17:18 Chief Complaint: Cancer Primary Care Physician: Allison Dickson M.D. History of Present Illness this pt presents weakened and tired, she did start Optivo approximately 2 weeks ago, she has a cough productive of green mucus, no acute changes on CXR, and a WBC of 42 K with significant hypoxia in the ER, she is accompanied by her daughter, confirms she is DNR and is bothered by intermittent left chest wall pain Past Medical/Surgical History Medical Problems: (1) COPD exacerbation (2) Hemoptysis (3) Hyponatremia (4) Hypotension (5) Hypoxia (6) Lung cancer (7) Lung mass (8) Weight loss Family History FHx: cancer Social History Smoking Status: Current Every Day Smoker (She was offered nicotine patch and declined) Drug Use: none Marital Status: in relationship Housing status: lives with significant other Occupational Status: employed Immunizations History of Influenza Vaccine: Unknown History of Tetanus Vaccine?: Unknown History of Pneumococcal: Unknown History of Hepatitis B Vaccine: Unknown Allergies Coded Allergies: No Known Allergies (Unverified , 01/14/18) Home Medications Scheduled Fentanyl (Duragesic), 1 PATCH TD [id number] Ipratropium [place] (Nasal) (Ipratropium [place]), 2 SPRAYS TANI TID Tiotropium [place] (Spiriva Respimat), 2 PUFF INH DAILY Scheduled PRN Albuterol Hfa (Ventolin Hfa), 2-4 PUFFS INH Q6H PRN for SOB/Wheezing Benzonatate (Tessalon Perles), 200 MG PO BID PRN for Cough Ibuprofen (Advil), 400-600 MG PO Q6H PRN for Pain or Fever Ondansetron Hcl (Zofran), 4 MG PO Q8 PRN for Nausea Prochlorperazine Maleate (Compazine), 20 MG PO QID PRN for Nausea or Vomiting Review of Systems ROS: Extremely thin withdrawn affect No double vision blurry vision No problems with speech or swallowing No palpitations, chest pain or pressure No Wheezing feels subjectively short of breath has a cough productive of gipson to green sputum No abdominal pain nausea vomiting diarrhea has had not improving her weight despite trying to increase her intake at home No burning urine urine frequency or changes in color No focal joint pain persists with left chest wall pain side of her malignancy No skin rashes or oral lesions No unusual bruising or bleeding No focused back pain or numbness or loss of strength No changes in memory or confusion Physical Exam Vital Signs Date Time Temp Pulse Resp B/P (MAP) Pulse Ox O2 Delivery O2 Flow Rate FiO2 01/14/18 15:21 108 01/14/18 15:17 91 Room Air 01/14/18 14:59 36.6 80 18 78/47 98 Room Air General Appearance: + moderate distress, + thin Head: normocephalic, atraumatic Eyes: normal inspection, PERRL, EOMI, sclerae normal Neck: supple, no JVD Respiratory/Chest: + decreased breath sounds, + accessory muscle use, + pertinent finding (Patient has rhonchi at the right base this is not correlating with any chest x-ray changes she denies aspiration) Cardiovascular: regular rate, rhythm, normal peripheral pulses Abdomen/GI: normal bowel sounds, non tender, soft Back: no CVA tenderness, normal range of motion Neurologic/Psych: alert, oriented x 3, + depressed affect Skin: normal color, warm/dry Diagnostics Laboratory Results Results Past 24 Hours Test 01/14/18 15:30 01/14/18 15:58 Range/Units White Blood Count 42.31 4.8-10.8 K/uL Red Blood Count 3.29 4.2-5.4 M/uL Hemoglobin 9.2 12.0-16.0 g/dL Hematocrit 29.0 37-47 % Mean Corpuscular Volume 88.1 80-100 fL Mean Corpuscular Hemoglobin 28.0 25-34 pg Mean Corpuscular Hemoglobin Concent 31.7 32-36 g/dl Platelet Count 529 130-400 K/uL Mean Platelet Volume 11.5 7.4-10.4 fL RDW Standard Deviation 58.6 36.4-46.3 fL RDW Coefficient of Variation 18.2 11.5-14.5 % Neutrophils % (Manual) 87.8 % Lymphocytes % (Manual) 2.6 % Monocytes % (Manual) 7.0 % Eosinophils % (Manual) 0.9 % Myelocytes % 1.7 % Neutrophils # (Manual) 37.15 1.4-6.5 K/uL Total Absolute Neutrophils 37.15 1.4-6.5 K/uL Lymphocytes # (Manual) 1.10 1.2-3.4 K/uL Total Absolute Lymphocytes 1.10 1.2-3.4 K/uL Monocytes # (Manual) 2.96 0.11-0.59 K/uL Eosinophils # (Manual) 0.38 0-0.5 K/uL Myelocytes # 0.72 0-0 K/uL Hypochromasia PRESENT Target Cells 1+ Erythrocyte Sedimentation Rate 82 0-21 mm/hr Prothrombin Time 12.0 9.0-12.0 SECONDS Prothromb Time International Ratio 1.1 0.9-1.1 Activated Partial Thromboplast Time 26.7 21.0-31.0 SECONDS Partial Thromboplastin Ratio 1.0 Sodium Level 128 136-145 mmol/L Potassium Level 3.9 3.5-5.1 mmol/L Chloride Level 92 98-107 mmol/L Carbon Dioxide Level 26 21-32 mmol/L Anion Gap 10.0 3-11 mmol/L Blood Urea Nitrogen 17 7-18 mg/dl Creatinine 0.75 0.60-1.20 mg/dl Est Creatinine Clear Calc Drug Dose 47.0 ml/min Estimated GFR () 102.6 Estimated GFR (Non- 88.5 BUN/Creatinine Ratio 22.5 10-20 Random Glucose 66 70-99 mg/dl Calcium Level 9.7 8.5-10.1 mg/dl Magnesium Level 1.8 1.8-2.4 mg/dl Total Bilirubin 0.6 0.2-1 mg/dl Aspartate Amino Transf (AST/SGOT) 20 15-37 U/L Alanine Aminotransferase (ALT/SGPT) 7 12-78 U/L Alkaline Phosphatase 328 45-117 U/L Total Creatine Kinase 21 26-192 U/L Creatine Kinase MB < 1.0 0.5-3.6 ng/ml Creatine Kinase MB Ratio 0-3.0 Troponin I < 0.015 0-0.045 ng/ml C-Reactive Protein 23.90 0-0.29 mg/dl Total Protein 6.6 6.4-8.2 gm/dl Albumin 1.7 3.4-5.0 gm/dl Globulin 4.9 2.5-4.0 gm/dl Albumin/Globulin Ratio 0.3 0.9-2 Lipase 49 73-393 U/L Venous Blood pH 7.39 7.36-7.41 Venous Blood Partial Pressure CO2 44 38.0-50.0 mmHg Venous Blood Partial Pressure O2 28 mmHg Venous Blood HCO3 26 mmol/L Venous Blood Oxygen Saturation < 60.0 % Venous Blood Base Excess 0.9 mEq/L Microbiology Results 01/14/18 Blood Culture, Received Pending 01/14/18 Blood Culture, Received Pending 01/14/18 Gram Stain - Preliminary, Resulted 01/14/18 Sputum Culture, Resulted Pending other (cxr shows no new infiltrates but persistent left sided changes) Impression Assessment and Plan (1) Hyponatremia Assessment & Plan: This is acute on chronic being lower than her typical this point time will get a random urine sodium to look for SIADH although paraneoplastic process cannot be ruled out will give her normal saline and consider fluid restriction at this time (2) Weakness Assessment & Plan: This is multifactorial likely accounting to the hyponatremia but also nutritional deficiencies as the patient appears clinically dehydrated on presentation and albumin remains poor will be dietary consult for nutritional supplements hydrate her with normal saline and continue to try to correct her hyponatremia (3) Lung cancer Assessment & Plan: This is metastatic and is unclear whether the wrist patient received any bone marrow stimulating medications in the outpatient realm or if the patient is a secondary process causing leukocytosis whether that be from something like C. difficile or from a secondary malignancy. Also side effects from certain chemotherapeutic agents could cause a robust white cell response especially immune system manipulating medications. To this and will consult Dr. Fu but if the patient does have diarrhea we will also screen her for C. difficile (4) Bronchitis Assessment & Plan: Clinically the patient presents with mucus production and weakness. The patient has a negative chest x-ray which I personally reviewed with the exception of the fact that she has persistent malignant changes. We will treat her with an oral antibiotic at this time for presumed clinical bronchitis continuing bronchodilators given her concurrent history of tobacco abuse (5) Chronic pain Assessment & Plan: Will maintain fentanyl at this time with as needed opiates if needed for pain control she is offered Tylenol as usual for low level pain (6) Protein-calorie malnutrition, severe Patient's albumin is 1.7 on presentation she is no signs of peripheral edema however we will get a nutritional consult and consider appetite stimulating medications Resuscitation Status VTE Prophylaxis Will order VTE Prophylaxis: Yes (A Cosme apparent will be offered for DVT prevention)
[2018-01-14] MEDS ORDERED: IV FLUIDS COMPLETED PRN ×2 (17:30→17:45)
[2018-01-14] MEDS ORDERED: PIPERACILL/TAZOBAC CONSULT ACTIVE PRN (17:30)
[2018-01-14] MEDS ORDERED: OXYCODONE HCL IR 5 MG TAB (IMMEDIATE RELEASE) PO PRN (17:30)
[2018-01-14] MEDS ORDERED: MoRPHine SULFATE 2 MG/ML CARP IV PRN (17:30)
[2018-01-14] MEDS ORDERED: PIPERACILL/TAZOBAC IV 3.375 GM in DEXTROSE 5% 100ML 100 ML IV SCH (18:00)
[2018-01-14 18:25] VITALS: BP 102/63; PULSE 102; TEMP 36.6
[2018-01-14 18:32] VITALS: PULSE 105; O2SAT 98; BMI 14.1
[2018-01-14 19:31] VITALS: BP 91/57; PULSE 107; TEMP 36.6; O2SAT 93
[2018-01-14 20:00] VITALS: O2SAT 93
[2018-01-14] MEDS: ALBUT/IPRATROP 3MG/0.5MG NEB 3 ML VIAL INH SCH (20:00)
[2018-01-14] MEDS ORDERED: PIPERACILL/TAZOBAC IV 3.375 GM in D5W 100 ML IV ONE (20:15)
[2018-01-14] MEDS: SODIUM CHLORIDE 0.9% 1000ML 1,000 ML IV SCH (20:38)
[2018-01-14] MEDS: ENOXAPARIN 40 MG/0.4 ML SYR SQ SCH (20:40)
[2018-01-14] MEDS ORDERED: SULFAMETHOXAZOLE/TRIMETHOPRIM DS 800/160MG TAB PO SCH (21:00)
[2018-01-14] MEDS: IPRATROPIUM BROMIDE NASAL SPRAY 0.06% 15ML NAE SCH (21:00)
[2018-01-14 23:13] VITALS: BP 98/60; PULSE 110; TEMP 37; O2SAT 99
[2018-01-15] VITALS (11 sets, daily range): BP systolic 87–122; BP diastolic 46–70; PULSE 101–120; TEMP 36.4–36.8; O2SAT 86–99; Ht 160 cm; Wt 32.9 kg
[2018-01-15] MEDS: CHECK FENTANYL PATCH PLACEMENT SCH ×3 (00:06→14:52)
[2018-01-15] MEDS: PIPERACILL/TAZOBAC IV 3.375 GM in D5W 100ML IV SCH ×3 (01:34→17:06)
[2018-01-15] MEDS: SODIUM CHLORIDE 0.9% 1000ML 1,000 ML IV SCH (04:39)
[2018-01-15] MEDS: ALBUT/IPRATROP 3MG/0.5MG NEB 3 ML VIAL INH SCH ×5 (07:16→19:32)
--- NOTE | 2018-01-15 07:28 | DIAGNOSTIC IMAGING REPORT ---
CHEST ONE VIEW PORTABLE CLINICAL HISTORY: Evaluate for pneumonia. Non-small cell lung cancer. COMPARISON STUDY: PET/CT December 18, 2017 and chest radiograph January 14, 2018. FINDINGS: Left hemithorax volume loss is noted. A left perihilar mass-like opacity is unchanged. Multiple pulmonary nodules, including a cavitary right midlung nodule represent metastatic disease. These are unchanged. There is no pneumothorax. A small left pleural effusion is noted. There is no evidence for pulmonary edema. Mild left lung airspace opacities persist. IMPRESSION: 1. No change in appearance of the chest with mild left lung airspace opacities which are unchanged since exam of January 14, 2018 but improved since December 27, 2017. These may reflect an improving infectious process superimposed upon metastatic disease. 2. Small left pleural effusion. Electronically signed by: Dirk Galo M.D. 01/15/2018 7:27 AM Dictated Date/Time: 01/15/2018 7:20 AM
[2018-01-15] MEDS: IPRATROPIUM BROMIDE NASAL SPRAY 0.06% 15ML NAE SCH ×3 (07:50→18:37)
--- NOTE | 2018-01-15 07:55 | Progress Note ---
Subjective Date of Service: Jan 15, 2018. Subjective this pt is still coughing up gobs of green gipson mucus, markedly weak and tired Problem List Medical Problems: (1) COPD exacerbation Status: Acute (2) Hypotension Status: Acute (3) Hypotension Status: Acute (4) Hypoxia Status: Acute (5) Lung mass Status: Acute (6) Pneumonia Status: Acute (7) Weakness Status: Acute (8) Weight loss Status: Acute Review of Systems Constitutional: + chills, + weakness, + fatigue, No fever Respiratory: + cough, + sputum, + shortness of breath, + dyspnea on exertion Cardiac: No chest pain, No edema Abdomen: No pain, No nausea Musculoskeletal: + joint pain, + muscle pain Female : No dysuria, No urinary frequency Psychiatric: + depression symptoms, + anhedonism Objective Vital Signs Date Time Temp Pulse Resp B/P (MAP) Pulse Ox O2 Delivery O2 Flow Rate FiO2 01/15/18 07:16 113 16 89 Room Air 01/15/18 07:07 36.8 109 18 96/58 (71) 96 Nasal Cannula 2.0 01/15/18 03:11 36.7 120 22 122/70 (87) 91 Nasal Cannula 2.0 01/14/18 23:13 37.0 110 20 98/60 (73) 99 Nasal Cannula 2.0 01/14/18 20:00 93 Room Air 01/14/18 19:31 36.6 107 20 91/57 (68) 93 Room Air 01/14/18 18:32 105 98 Mask 6.0 01/14/18 18:25 36.6 102 20 102/63 (76) 01/14/18 17:59 36.6 104 21 109/57 100 01/14/18 17:56 104 21 100 01/14/18 17:31 109/57 01/14/18 17:30 70 Room Air 01/14/18 17:30 89 Oxymask 10.0 01/14/18 17:26 153 19 71 01/14/18 17:08 102 18 97/58 01/14/18 17:01 97/58 01/14/18 16:56 102 23 01/14/18 16:31 99/52 01/14/18 16:26 106 26 91 01/14/18 16:08 112/53 01/14/18 16:01 102/55 01/14/18 15:56 108 25 01/14/18 15:26 108 31 01/14/18 15:21 108 01/14/18 15:18 114/ 01/14/18 15:17 91 Room Air 01/14/18 14:59 36.6 80 18 78/47 98 Room Air Physical Exam General Appearance: + moderate distress, + thin Eyes: normal inspection, sclerae normal Respiratory/Chest: + respiratory distress, + decreased breath sounds, + accessory muscle use, + rales (right base) Cardiovascular: regular rate, rhythm, no murmur Abdomen: normal bowel sounds, non tender, soft Neurologic/Psychiatric: alert, oriented x 3 Laboratory Results Last 24 Hours Test 01/14/18 15:30 01/14/18 15:58 01/14/18 19:45 01/15/18 04:44 White Blood Count 42.31 K/uL Red Blood Count 3.29 M/uL Hemoglobin 9.2 g/dL Hematocrit 29.0 % Mean Corpuscular Volume 88.1 fL Mean Corpuscular Hemoglobin 28.0 pg Mean Corpuscular Hemoglobin Concent 31.7 g/dl Platelet Count 529 K/uL Mean Platelet Volume 11.5 fL RDW Standard Deviation 58.6 fL RDW Coefficient of Variation 18.2 % Neutrophils % (Manual) 87.8 % Lymphocytes % (Manual) 2.6 % Monocytes % (Manual) 7.0 % Eosinophils % (Manual) 0.9 % Myelocytes % 1.7 % Neutrophils # (Manual) 37.15 K/uL Total Absolute Neutrophils 37.15 K/uL Lymphocytes # (Manual) 1.10 K/uL Total Absolute Lymphocytes 1.10 K/uL Monocytes # (Manual) 2.96 K/uL Eosinophils # (Manual) 0.38 K/uL Myelocytes # 0.72 K/uL Hypochromasia PRESENT Target Cells 1+ Erythrocyte Sedimentation Rate 82 mm/hr Prothrombin Time 12.0 SECONDS Prothromb Time International Ratio 1.1 Activated Partial Thromboplast Time 26.7 SECONDS Partial Thromboplastin Ratio 1.0 Sodium Level 128 mmol/L Potassium Level 3.9 mmol/L Chloride Level 92 mmol/L Carbon Dioxide Level 26 mmol/L Anion Gap 10.0 mmol/L Blood Urea Nitrogen 17 mg/dl Creatinine 0.75 mg/dl Est Creatinine Clear Calc Drug Dose 47.0 ml/min Estimated GFR () 102.6 Estimated GFR (Non- 88.5 BUN/Creatinine Ratio 22.5 Random Glucose 66 mg/dl Calcium Level 9.7 mg/dl Magnesium Level 1.8 mg/dl Total Bilirubin 0.6 mg/dl Aspartate Amino Transf (AST/SGOT) 20 U/L Alanine Aminotransferase (ALT/SGPT) 7 U/L Alkaline Phosphatase 328 U/L Total Creatine Kinase 21 U/L Creatine Kinase MB < 1.0 ng/ml Creatine Kinase MB Ratio Troponin I < 0.015 ng/ml C-Reactive Protein 23.90 mg/dl Total Protein 6.6 gm/dl Albumin 1.7 gm/dl Globulin 4.9 gm/dl Albumin/Globulin Ratio 0.3 Lipase 49 U/L Venous Blood pH 7.39 Venous Blood Partial Pressure CO2 44 mmHg Venous Blood Partial Pressure O2 28 mmHg Venous Blood HCO3 26 mmol/L Venous Blood Oxygen Saturation < 60.0 % Venous Blood Base Excess 0.9 mEq/L Urine Color YELLOW Urine Appearance CLEAR Urine pH 5.5 Urine Specific [place] 1.023 Urine Protein 1+ Urine Glucose (UA) NEG Urine Ketones 2+ Urine Occult Blood NEG Urine Nitrite NEG Urine Bilirubin NEG Urine Urobilinogen NEG Urine Leukocyte Esterase NEG Urine WBC (Auto) 5-10 /hpf Urine RBC (Auto) 0-4 /hpf Urine Hyaline Casts (Auto) 5-10 /lpf Urine Epithelial Cells (Auto) 10-20 /lpf Urine Bacteria (Auto) NEG Urine Random Sodium 31 mEq/L Assessment and Plan (1) Pneumonia Assessment & Plan: this pt is treated for mrsa and also gram negative pneumonia , has hospital exposure and cancer, cavitary lesion likely realated to cancer and not to TB, adding vancomycin and pulmonary consult (2) Hyponatremia Assessment & Plan: This is acute on chronic, elevated random urine sodium suggests SIADH, paraneoplastic process cannot be ruled out continue normal saline and initiate fluid restriction (3) Weakness Assessment & Plan: This is multifactorial likely accounting to the hyponatremia but also nutritional deficiencies as the patient appears clinically dehydrated on presentation and albumin remains poor will be dietary consult for nutritional supplements hydrate her with normal saline and continue to try to correct her hyponatremia (4) Lung cancer Assessment & Plan: This is metastatic repeat CT of chest shows left lung cavitary lesion with possible communication to bronchus I called daughter at the patient request and updated on findings, added vancomycin and ordered nasal swab testing (5) Chronic pain Assessment & Plan: Will maintain fentanyl at this time with as needed opiates if needed for pain control she is offered Tylenol as usual for low level pain Patient's albumin is 1.7 on presentation she is no signs of peripheral edema, she has moderate malnutrition and will have acquisition lead consult
[2018-01-15 08:04] LABS: HEMATOCRIT 24.7 % (37-47); HEMOGLOBIN 7.8 g/dL (12.0-16.0); MEAN CELL VOLUME 87.6 fL (80-100); MEAN CORPUSCULAR HEMOGLOBIN 27.7 pg (25-34); MEAN CORPUSCULAR HGB CONC 31.6 g/dl (32-36); MEAN PLATELET VOLUME 10.4 fL (7.4-10.4); PLATELET COUNT 399 K/uL (130-400); RED CELL DISTRIBUTION WIDTH SD 57.6 fL (36.4-46.3); WHITE BLOOD COUNT 42.09 K/uL (4.8-10.8)
[2018-01-15 08:25] LABS: CALCIUM 9.1 mg/dl (8.5-10.1); CREATININE 0.69 mg/dl (0.60-1.20)
--- NOTE | 2018-01-15 09:52 | ONCOLOGY CONSULTATION ---
DATE OF CONSULTATION: 01/15/2018 REASON FOR CONSULTATION: Probable pneumonia. HISTORY OF PRESENT ILLNESS: Natali Emanuel is a pleasant but unfortunate 57-year-old female patient who suffers from metastatic non-small cell lung cancer, date of original diagnosis is 03/2017, admitted to [facility] last night with the complaint of profound generalized weakness and productive cough. Patient recently started nivolumab approximately 2 weeks ago and shortly thereafter began to experience the symptoms as described above. Surprisingly, she had not called the office; however, as her symptoms worsened, she was brought to the Emergency Room accompanied by her daughter. Medical service has started her on Zosyn and Levaquin intravenously. Patient's white count is significantly elevated manifested by a predominant neutrophilia. Chest x-ray surprisingly shows no acute changes. Natali readily admits her appetite has been poor over the past several days. She reports no fever, chills, nausea, vomiting, diarrhea, or constipation at this time. PAST MEDICAL HISTORY: Again significant for stage IV non-small cell lung cancer with adrenal involvement, COPD, hyponatremia, hypotension, hypoxia, anorexia, and weight loss. MEDICATIONS: Prior to admission include fentanyl 50 mcg topically q.72 h., Marinol 2.5 mg p.o. b.i.d., Percocet 5/325 one p.o. every 4 to 6 hours for breakthrough, ipratropium 2 sprays intranasally t.i.d., Spiriva HandiHaler 2 puffs inhaled daily. She uses Zofran and Compazine p.r.n. ALLERGIES: No known drug allergies. 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 She has a [id number] smoking history. Positive for social alcohol. She has 2 grandchildren. FAMILY HISTORY: Noncontributory. REVIEW OF SYSTEMS: GENERAL: As per HPI. Most notably for failing performance status, generalized weakness, anorexia, semi-productive cough. No fevers, chills, or sweats otherwise. SKIN: No rashes or lesions. No history of dermatoses. HEENT: Negative for headaches, lightheadedness, or dizziness. No acute visual or hearing deficits. No sinus symptoms, sore throat, or dysphagia. LYMPHATICS: No history of lymphoproliferative disease. CARDIAC: No history of coronary artery disease. No current angina or palpitations. PULMONARY: As per HPI. GASTROINTESTINAL: Negative for abdominal pain, nausea, vomiting, diarrhea, constipation, hematochezia, or melena stools. GENITOURINARY: No hematuria, dysuria, or urinary incontinence. PSYCHIATRIC: Negative for anxiety, depression, or psychoses by history. ENDOCRINE: Negative for diabetes or thyroid disease. NEUROLOGIC: Negative for seizure, stroke, or migraine headache. HEMATOLOGIC: Positive for profound leukocytosis and chronic anemia. PHYSICAL EXAMINATION: GENERAL: She is an ill-appearing 57-year-old female patient, lying supine in bed, answers questions appropriately, in no acute distress. VITAL SIGNS: Temperature 36.8, pulse 109, respiratory rate 18, blood pressure 96/58. SKIN: Warm, dry, noncyanotic, without petechiae, rash, or ecchymosis. HEENT: Head is atraumatic and normocephalic. Eyes: PERRLA, EOMI. Sclerae are nonicteric. No conjunctival injection. Nares are patent, without rhinorrhea or discharge. Throat clear. Tongue midline. Mucous membranes are moist. NECK: Supple, without JVD or thyromegaly. LYMPHATICS: No cervical, supraclavicular, axillary, or inguinal palpable nodes. HEART: Regular rate and rhythm but tachycardic. LUNGS: Scattered rales and rhonchi in all rubio. GASTROINTESTINAL: Abdomen is soft, nontender, nondistended, without palpable hepatosplenomegaly. EXTREMITIES: Musculoskeletal strength and pulses are equal in all 4 quadrants. No clubbing, cyanosis, or edema otherwise. NEUROLOGICAL: She is awake, alert, and oriented x3. Cranial nerves are intact. LABORATORY DATA: WBC count 42,090, hemoglobin 7.8, platelet count 399,000. Chemistries from yesterday, sodium 128, potassium 3.9, chloride 92, carbon dioxide 26, BUN 17, creatinine 0.75, albumin 1.7, alkaline phosphatase elevated at 328. IMPRESSION: 1. Presumed pneumonia. 2. Failing performance status. 3. Hypoalbuminemia/anorexia. 4. Hyponatremia. 5. Metastatic non-small cell lung cancer. PLAN: Natali is a very pleasant but unfortunate 57-year-old female patient who suffers from end stage metastatic non-small cell lung cancer. She had previously received 6 cycles of carboplatin and gemcitabine, which were completed in September 2017 resulting in partial response. Recently, she was started on nivolumab (Opdivo) about 2 weeks ago and developed the admitting symptoms shortly thereafter. Nivolumab can result in aberrant autoimmune response, particularly pneumonitis, hepatitis, adrenalitis, and possibly thyroiditis. Her white count is significantly elevated, which suggests an underlying infection. Perhaps a CT scan with contrast limited to the chest would be helpful to rule out abscess or occult pneumonia. She obviously is not well enough to resume any form of salvage therapy. Apparently, she has agreed to DNR, for which I readily agree. Her prognosis is exceedingly poor, and goal of any chemotherapeutics moving forward is strictly palliative. I agree with current medical management and the antimicrobial choice. Perhaps when she stabilizes a bit more, may consider transfusion of a unit or two of blood to help with oxygen exchange. I have her IM on inpatient service this week and will continue to follow Natali closely throughout her hospitalization. Thank you for allowing me to participate in her care.
[2018-01-15] MEDS ORDERED: GUAIFENESIN/DEXTROM SYRUP 100MG/10MG 5ML UDC PO PRN (10:30)
--- NOTE | 2018-01-15 14:25 | DIAGNOSTIC IMAGING REPORT ---
(CHEST) THORAX WITHOUT CLINICAL HISTORY: Postoperative examination. Evaluate for possible abscess. Non-small cell lung carcinoma. COMPARISON STUDY: Chest CT dated 08/07/2017, chest x-ray dated 01/15/2018 CT DOSE: 186.82 mGy.cm TECHNIQUE: CT of the thorax was performed from the thoracic inlet to the lung bases. Images are reviewed in the axial, sagittal, and coronal planes. IV contrast was not administered for this examination. A dose lowering technique was utilized adhering to the principles of ALARA. FINDINGS: Thyroid: Imaged portions of the thyroid gland are normal in appearance. Thoracic aorta: The thoracic aorta is normal in course and caliber, noting standard 3 vessel arch anatomy. Heart: The heart is normal in size and configuration, without pericardial effusion. Lungs and pleural spaces: There are small bilateral pleural effusions. Since the prior study, there has been interval increase in the size and number of the multiple bilateral pulmonary nodules. Many of the nodules demonstrate cavitation. There is an index 27 mm cavitary right lower lobe pulmonary nodule. There is left lung septal edema. 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 There is an enlarging 6 cm left upper lobe cavity which communicates with the left mainstem bronchus. There are dependent left lower lobe airspace opacities, atelectatic versus pneumonia. Mediastinum: There is suspected subcarinal lymphadenopathy. Cori: The hilar structures difficult to evaluate without intravenous contrast. There is probable left hilar adenopathy. Axilla: There is no evidence of pathologic axillary lymphadenopathy Upper abdomen: There are multiple hepatic masses suspicious for metastasis. There is a 7.7 cm left adrenal mass suspicious for metastasis. Skeletal structures: There are no lytic or blastic osseous lesions. IMPRESSION: 1. 6 cm cavitary left upper lobe pulmonary mass which appears to communicate with the left mainstem bronchus 2. Increasing bilateral pulmonary nodules many of which are cavitary. The findings likely represent multiple metastatic lesions. 3. Interval development of bilateral pleural effusions 4. Left lung septal edema. 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 Multiple hypodense hepatic masses, suspicious for progressive hepatic metastasis 6. Partially visualized 7.7 cm left adrenal mass Electronically signed by: Souleymane Winters M.D. 01/15/2018 2:24 PM Dictated Date/Time: 01/15/2018 2:03 PM
[2018-01-15] MEDS: LEVOFLOXACIN / D5W 750 MG in PREMIXED IN D5W 150 ML IV SCH (15:48)
[2018-01-15] MEDS ORDERED: VANCOMYCIN IV 1,000 MG in SODIUM CHLORIDE 0.9% 250ML 250 ML IV ONE (18:30)
[2018-01-15] MEDS ORDERED: VANCOMYCIN CONSULT ACTIVE PRN (18:30)
[2018-01-15] MEDS: MAGNESIUM OXIDE 400 MG TAB PO SCH (19:58)
[2018-01-15] MEDS: ENOXAPARIN 40 MG/0.4 ML SYR SQ SCH (19:58)
--- NOTE | 2018-01-15 20:17 | Pharmacy Progress Note ---
Pharmacy Abx Initial Consult Date of Service Jan 15, 2018. Pharmacy Dosing Scope Date of Consult: 01/15/18 Consultation requested by: Dr. Thurman Pharmacy is consulted to initiate Vancomycin IV dosing therapy, order appropriate labs and adjust drug dose/frequency. Subjective The patient is a 57 year old female admitted on Jan 14, 2018 at 17:31 with possible bronchitis started on PO Bactrim DS, over the course of stay she was then started on both Zosyn and Levaquin. Today Dr. Thurman added Vancomycin for Pneumonia per pharmacy consult pending MRSA nasal swab as she continues to cough large amounts of green sputum. She has history of Lung Cancer and is an active smoker. Objective Height (Feet): 5 Height (Inches): 3.00 Weight (Kilograms): 36.100 Vital Signs (Past 12Hrs) Vital Signs Past 12 Hours Date Time Temp Pulse Resp B/P (MAP) Pulse Ox O2 Delivery O2 Flow Rate FiO2 01/15/18 19:46 36.4 105 20 89/46 (60) 99 Nasal Cannula 2.0 01/15/18 19:34 106 16 86 Room Air 01/15/18 18:11 95/54 (68) 01/15/18 16:03 102 16 96 Nasal Cannula 2.0 01/15/18 15:35 36.7 105 22 91/47 (62) 97 Nasal Cannula 2.0 01/15/18 11:59 36.7 117 17 91/55 (67) 90 Room Air 01/15/18 11:24 113 16 89 Room Air Lab Results (24Hrs) Laboratory Tests (24 Hours) Test 01/15/18 07:47 White Blood Count 42.09 K/uL (4.8-10.8) *H Micro Results Date/Time Source Procedure Growth Status 01/14/18 15:30 Blood Blood Culture Pending Received 01/14/18 15:30 Blood Blood Culture Pending Received 01/15/18 18:00 Nasal MRSA DNA Surveillance Screen Pending Received 01/14/18 16:06 Sputum Expectorated Sputum Gram Stain - Final Resulted 01/14/18 16:06 Sputum Expectorated Sputum Sputum Culture - Preliminary MODERATE NORMAL GODWIN Present, Final ... Resulted Risk Factors for Resistance Assessment & Plan Assessment 57 year old female admitted with suspicion of bronchitis now confirmed as Pneumonia being treated with broad spectrum agents Zosyn, Levaquin and Vancomycin. Currently MRSA swab is pending. Plan Vancomycin IV * Loading dose: 1000 mg (27.7 mg/kg) * Maintenance dose: 750 mg IV (20 mg/kg) every 18 hours * Goal trough level: 15-20 mcg/mL * Trough level ordered prior to 01/18/18 midnight dose Pharmacy will continue to follow and will adjust dose/frequency as necessary. Thank you.
[2018-01-16] VITALS (10 sets, daily range): BP systolic 87–107; BP diastolic 47–60; PULSE 72–119; TEMP 36.4–37; O2SAT 86–96
[2018-01-16] MEDS: CHECK FENTANYL PATCH PLACEMENT SCH ×3 (00:20→16:08)
[2018-01-16] MEDS: PIPERACILL/TAZOBAC IV 3.375 GM in D5W 100ML IV SCH ×4 (02:22→18:41)
[2018-01-16] MEDS: ALBUT/IPRATROP 3MG/0.5MG NEB 3 ML VIAL INH SCH ×4 (07:07→19:17)
[2018-01-16 07:28] LABS: MEAN CELL VOLUME 86.6 fL (80-100); MEAN CORPUSCULAR HEMOGLOBIN 27.6 pg (25-34); MEAN CORPUSCULAR HGB CONC 31.8 g/dl (32-36); RED CELL DISTRIBUTION WIDTH CV 18.1 % (11.5-14.5); RED CELL DISTRIBUTION WIDTH SD 56.8 fL (36.4-46.3); WHITE BLOOD COUNT 46.92 K/uL (4.8-10.8)
[2018-01-16 07:56] LABS: CALCIUM 9.2 mg/dl (8.5-10.1); CREATININE 0.64 mg/dl (0.60-1.20); POTASSIUM 3.2 mmol/L (3.5-5.1)
[2018-01-16] MEDS ORDERED: SODIUM CHLORIDE 0.9% 500ML 500 ML IV SCH (08:00)
--- NOTE | 2018-01-16 08:14 | HEME/ONC PROGRESS NOTE ---
DATE: 01/16/2018 DIAGNOSES: 1. Presumed pneumonia. 2. Failing performance status. 3. Hypoalbuminemia/anorexia. 4. Hyponatremia. 5. Metastatic nonsmall cell lung cancer. SUBJECTIVE: I visited with Natali at bedside today. She remains quite ill, making very, very little progress if at all. CT scan of the chest was performed revealing disease progression. Of paramount significance is the left upper lobe cavitary lesion which seems to be communicating with the left main stem bronchus. I suspect this is what is driving her white count and sputum production. I may need to consider palliative radiation therapy to that area. I imparted this news to Natali and in essence informed her the CT scan of the chest reveals significant disease progression despite our efforts. Her appetite remains poor, but she offers no complaint of worsening pain. PHYSICAL EXAMINATION: GENERAL: She is in no acute distress. VITAL SIGNS: Temperature 36.6, pulse 116, respiratory rate is 24, blood pressure 96/56. SKIN: Without rash or lesion. HEENT: Oral mucosa is dry. NECK: Supple. HEART: Regular rate and rhythm. LUNGS: Scattered rhonchi heard in both rubio. ABDOMEN: Soft, nontender. EXTREMITIES: No clubbing, cyanosis or edema. NEUROLOGIC: Grossly intact. LABORATORY DATA: WBC count 46,920, hemoglobin 7, platelet count is pending. Chemistries pending. IMPRESSION: 1. Progressing left upper lobe cavitary mass, now communicating with left main stem bronchus. 2. Metastatic nonsmall cell lung cancer. 3. Hypoalbuminemia. 4. Failing performance status. PLAN: Natali underwent a CT scan of the chest which clearly demonstrates disease progression. I believe the left upper lobe mass with communication left main stem bronchus is probably the underlying cause for her neutrophilia. Would continue broad-spectrum antibiotics and would also ask radiation therapy to consider palliative radiation to that region. Her prognosis is exceedingly poor. Considering I just gave the news to Natali today, I would like her to have 24 hours to absorb everything and will engage in discussion regarding palliative care consult may be tomorrow. Continue medical management as ordered. I will visit with her again tomorrow morning.
[2018-01-16 08:23] LABS: MEAN PLATELET VOLUME 10.4 fL (7.4-10.4); PLATELET COUNT 357 K/uL (130-400)
[2018-01-16] MEDS: IPRATROPIUM BROMIDE NASAL SPRAY 0.06% 15ML NAE SCH ×3 (08:50→20:00)
[2018-01-16] MEDS: MAGNESIUM OXIDE 400 MG TAB PO SCH ×2 (08:50→20:26)
--- NOTE | 2018-01-16 11:27 | PULMONARY CONSULTATION ---
DATE OF CONSULTATION: 01/16/2018 TIME: 9:30 a.m. REPORT OF CONSULTATION: The patient was seen in room 218. She is a 57-year-old female who has a history of lung cancer diagnosed in 03/2017. At that time, she had bronchoscopy done by Dr. Ascencio. There was endobronchial tumor in the left upper lobe that showed squamous cell carcinoma of the lung. She also had adrenal metastasis. The patient has had chemotherapy. Initially, she had carboplatin and gemcitabine. Recently, she was started on Opdivo approximately 2 weeks ago. The patient is uncertain if she actually had any radiation therapy or not. For the past couple of weeks, the patient has had a change in her cough. She has been expectorating green sputum that appears to look like pea soup. She has not had any hemoptysis. She has had weakness. Her appetite has been poor. She has lost a lot of weight. She states she is not sick in the stomach. She is not having diarrhea. She does complain of increased urination. She has pain in the right front and lateral chest and she has pain in the left posterior chest. The patient came to the Emergency Room on 01/14/2018 with those symptoms. She does not feel too much different since admission. She had an oxygen saturation as low as 70% in the Emergency Room. She has been undergoing various evaluations since admission. This includes a CAT scan of her chest. The CAT scan shows a 6 cm left upper lobe cavitary mass, which appears to communicate with the left main stem bronchus. There are increasing bilateral pulmonary nodules, many of which are cavitary and likely represent metastatic lesions. She has small bilateral pleural effusions. The possibility of lymphangitic carcinomatosis cannot be excluded. There are multiple hypodense hepatic masses suspicious for progressive hepatic metastasis. There is an adrenal mass measuring 7.7 cm on the left side. PAST SURGICAL HISTORY: None. PAST MEDICAL HISTORY: 1. Hyponatremia. 2. COPD. 3. Lung CA as noted. SOCIAL HISTORY: Tobacco 1 pack per day for 40 years. Reportedly, she is still smoking between one-half and three-quarter pack per day. Alcohol use is occasional. ALLERGIES: No known allergies. 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 FAMILY HISTORY: Father in his 50s from some type of cancer. Brother in his 50s from cancer. Mother in her 60s from [place]. MEDICATIONS AT HOME: 1. Ventolin HFA p.r.n. 2. Tessalon Perles p.r.n. 3. Fentanyl 25 mcg q. 72 hours. 4. Ibuprofen p.r.n. 5. Ipratropium nasal spray. 6. Ondansetron p.r.n. 7. Prochlorperazine p.r.n. 8. Tiotropium 2 puffs daily. REVIEW OF SYSTEMS: Negative except for the complaints noted in the history of present illness. Ten systems reviewed. PHYSICAL EXAMINATION: GENERAL: The patient is a very ill-appearing 57-year-old female. She appears cachectic. She was in no distress. She coughed 2 times during my evaluation and expectorated each time [id number] quantities of green somewhat watery sputum. Her weight is listed as 36 kilograms with a BMI of 14.1. HEENT: Pupils were reactive to light. Nares were clear. Mouth exam showed no exudate or erythema. NECK: Palpation of the neck reveals no lymph nodes. CARDIOVASCULAR: The cardiac rate is 116 per minute. Rhythm was regular. Blood pressure 96/56. CHEST: Showed diminished excursions. Respiratory rate was 20 breaths per minute at the time of my exam, but had been as high as 29 breaths per minute during the night time. The breath sounds are overall very diminished. There are a few scattered rhonchi heard. Oxygen saturation at the time of my exam was 84% on room air and this was taken by myself. ABDOMEN: Soft. Bowel sounds were decreased, but present. There was no focal tenderness or definite mass. EXTREMITIES: Showed no cyanosis, clubbing, or edema. LABORATORY DATA: White blood cell count today is 46.92. It was 42.31 on admission. Hemoglobin is 7 and had been 9.2 on admission. Platelets are 357,000. Sed rate is elevated at 82. Coags are normal. Urinalysis showed +2 ketones, which might be compatible with extremely for nutrition, 5-10 wbc's were seen. Venous blood gas on admission showed pH 7.39, pCO2 of 44, pO2 of 28. Electrolytes showed sodium of 130, potassium 3.2, chloride 95, bicarbonate 26. BUN is 10 with a creatinine of 0.64. Magnesium levels have been extremely low with the most recent magnesium of 1.4. The AST was 20 and ALT was 7. The alkaline phosphatase was elevated at 328. C-reactive protein is 23.9. Total protein is 6.6 with albumin 1.7 and globulin 4.9. The globulin is elevated. IMPRESSION: 1. Probable pneumonia. 2. Progressive squamous cell carcinoma involving metastatic disease to both lungs as well as to the liver and adrenal glands. 3. Chronic obstructive pulmonary disease. 4. Leukocytosis. 5. Rule out reaction to Opdivo. COMMENTS AND RECOMMENDATIONS: The patient's status is very poor. She is currently receiving vancomycin, levofloxacin, and Zosyn. She did have a sputum culture done that is reporting Moraxella catarrhalis. That certainly would be covered. I suspect the malignancy is the major issue. The CAT scan suggests that the cavity connects directly to the left main bronchus. Dr. Panchal has suggested the possibility of radiation therapy. This would obviously be palliative only. In light of the patient's very extensive disease, things such as hospice care obviously could be considered. I do agree with her antibiotics and the bronchodilators as currently ordered. I do not believe there is a lot we have to offer her otherwise at present. The patient is a DNR. MTDD
[2018-01-16] MEDS: VANCOMYCIN IV 750 MG in SODIUM CHLORIDE 0.9% 250ML 250 ML IV SCH (12:59)
--- NOTE | 2018-01-16 13:10 | Progress Note ---
Subjective Date of Service: Jan 16, 2018. Subjective this pt is very withdrawn but did receive bad news from Dr Panchal this am, she continues to produce green yellow mucus Problem List Medical Problems: (1) COPD exacerbation Status: Acute (2) Hypotension Status: Acute (3) Hypotension Status: Acute (4) Hypoxia Status: Acute (5) Lung mass Status: Acute (6) Pneumonia Status: Acute (7) Weakness Status: Acute (8) Weight loss Status: Acute Review of Systems Constitutional: No fever, No chills, No weakness Respiratory: + cough, + sputum, + shortness of breath, + dyspnea on exertion Cardiac: No chest pain, No edema Abdomen: No pain, No nausea Musculoskeletal: No muscle pain Neurologic: + weakness, No paralysis Psychiatric: + depression symptoms, + anhedonism Objective Vital Signs Date Time Temp Pulse Resp B/P (MAP) Pulse Ox O2 Delivery O2 Flow Rate FiO2 01/16/18 11:39 37.0 72 16 93/58 (70) 96 01/16/18 11:09 98 16 96 Nasal Cannula 3.0 01/16/18 08:00 Nasal Cannula 2.0 01/16/18 07:20 36.6 116 24 96/56 (69) 91 Nasal Cannula 3.0 01/16/18 07:07 112 16 91 Nasal Cannula 3.0 01/16/18 03:49 36.5 119 29 107/60 (76) 93 Nasal Cannula 3.0 01/15/18 23:20 36.6 101 21 87/50 (62) 90 Room Air 93/51 (65) 01/15/18 20:01 Nasal Cannula 2.0 01/15/18 19:46 36.4 105 20 89/46 (60) 99 Nasal Cannula 2.0 01/15/18 19:34 106 16 86 Room Air 01/15/18 18:11 95/54 (68) 01/15/18 16:03 102 16 96 Nasal Cannula 2.0 01/15/18 15:35 36.7 105 22 91/47 (62) 97 Nasal Cannula 2.0 Physical Exam General Appearance: + moderate distress, + thin Neck: supple, no JVD Respiratory/Chest: + decreased breath sounds, + accessory muscle use, + rhonchi Cardiovascular: regular rate, rhythm, no murmur Abdomen: normal bowel sounds, soft Extremities: no pedal edema, no calf tenderness Neurologic/Psychiatric: alert, + depressed affect Laboratory Results Last 24 Hours Test 01/16/18 07:02 White Blood Count 46.92 K/uL Red Blood Count 2.54 M/uL Hemoglobin 7.0 g/dL Hematocrit 22.0 % Mean Corpuscular Volume 86.6 fL Mean Corpuscular Hemoglobin 27.6 pg Mean Corpuscular Hemoglobin Concent 31.8 g/dl RDW Standard Deviation 56.8 fL RDW Coefficient of Variation 18.1 % Platelet Count 357 K/uL Mean Platelet Volume 10.4 fL Platelet Estimate NORMAL Sodium Level 130 mmol/L Potassium Level 3.2 mmol/L Chloride Level 95 mmol/L Carbon Dioxide Level 26 mmol/L Anion Gap 8.0 mmol/L Blood Urea Nitrogen 10 mg/dl Creatinine 0.64 mg/dl Est Creatinine Clear Calc Drug Dose 55.1 ml/min Estimated GFR () 114.8 Estimated GFR (Non- 99.1 BUN/Creatinine Ratio 15.4 Random Glucose 87 mg/dl Calcium Level 9.2 mg/dl Assessment and Plan (1) Pneumonia Assessment & Plan: continues to be treated for mrsa and also gram negative pneumonia, has hospital exposure and cancer, cavitary lesion likely related to cancer and not to TB the pt denies any previous TB exposure, adding vancomycin and pulmonary consult, (2) Hyponatremia Assessment & Plan: This is acute on chronic, elevated random urine sodium suggests SIADH, paraneoplastic process cannot be ruled out, seems to have stalled around 130 continue normal saline and initiate fluid restriction maybe related to paraneoplastic consult (3) Weakness Assessment & Plan: This is multifactorial likely accounting to the hyponatremia but also nutritional deficiencies, dietary consult for nutritional supplements depression is also a big factor (4) Lung cancer Assessment & Plan: This is metastatic repeat CT of chest shows left lung cavitary lesion with possible communication to bronchus, pulmonary consult is not sure any additional procedures will be helpful Dr rao is considering requesting palliative consult, possibly considering XRT evaluation I called daughter 01/15 at the patient request and updated on findings, added vancomycin and ordered nasal swab testing (5) Chronic pain Patient's albumin is 1.7 on presentation she is no signs of peripheral edema, she has moderate malnutrition and will have software tools build 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
[2018-01-16] MEDS ORDERED: MoRPHine SULFATE 4 MG/ML 1 ML CARP\\VIAL IV PRN (13:45)
[2018-01-16] MEDS ORDERED: OXYCODONE HCL IR 5 MG TAB (IMMEDIATE RELEASE) PO PRN (13:45)
[2018-01-16] MEDS: MoRPHine SULFATE 2 MG/ML CARP IV PRN ×2 (13:53→17:30)
[2018-01-16] MEDS: ACETAMINOPHEN 500 MG TAB PO SCH (14:54)
--- NOTE | 2018-01-16 16:41 | Palliative Care Consultation ---
Consultation Date of Consultation: Jan 16, 2018. Requesting Physician: Dr. Thurman Attending Physician: Dr. Thurman Reason for Consultation: Confirmed CODE STATUS, determine goals of care including possible hospice referral History of Present Illness Patient is a 57-year-old female with a history of metastatic non-small cell lung cancer diagnosed in March 2017. Patient did undergo chemotherapy and XRT -she was started on Opdivo approximately 2 weeks ago. Patient states that since starting Opdivo she has noted increased weakness and decreased appetite. Patient presented to the emergency room on 12/25 with increased weakness, poor p.o. intake, increase productive cough. Patient was just discharged from the hospital after being treated for pneumonia approximately 2-3 weeks ago. Patient is producing green/brown purulent sputum. Patient denies fever or chills. No family were present at bedside-patient lives with her boyfriend and has a daughter who lives locally who is involved with her care. Patient wishes to return home-patient is excepting of a hospice referral. At this time patient is very weak and debilitated-unable to care for herself. Patient did state she was amenable to meeting with hospice-would like her boyfriend and daughter present at the time of discussion. Patient's white count is elevated at 46.92, hemoglobin 7.0, albumin 1.7-chest CT shows cavitary lesion-6 cm and small bilateral pleural effusions, increased size and number of pulmonary nodules. Patient with a history of chronic back pain, also notes pain across the rib cage which increases with cough. Patient reports partial response to fentanyl patch. Past Medical/Surgical History Medical History: Positive for metastatic non-small cell lung cancer, metastases to adrenal and liver, anorexia, weight loss, recent pneumonia Social History Smoking Status: Current Every Day Smoker History of Alcohol Use: No Drug Use: none Marital Status: in relationship Housing Status: lives with significant other Occupation Status: employed This with her boyfriend who assists with her care, has a daughter that lives locally who is also involved in her care Review of Systems Constitutional: No fever, No chills Eyes: No worsening of vision ENT: No hearing loss Respiratory: + cough, + sputum, + dyspnea on exertion Cardiac: + chest pain (Across rib cage bilaterally) Abdomen: No pain Musculoskeletal: No joint pain Female : + urinary frequency Neurologic: + weakness Endo: + fatigue Allergies Coded Allergies: No Known Allergies (Unverified , 01/14/18) Medications Current Inpatient Medications Medications (Trade) Dose Ordered Sig/Bruce Route Start Time Stop Time Status Last Admin Dose Admin Fentanyl (Duragesic Patch) 25 mcg Q3D@0900 TD 01/17/18 09:00 01/31/18 08:59 Ondansetron HCl (Zofran Tab) 4 mg Q8 PRN PO 01/14/18 17:15 02/13/18 17:14 Ipratropium [place] (Atrovent Nasal [place] 0.06%) 2 sprays TID TANI 01/14/18 21:00 02/13/18 20:59 Enoxaparin Sodium (Lovenox Inj) 40 mg QPM SQ 01/14/18 21:00 02/13/18 20:59 01/15/18 19:58 40 MG Acetaminophen (Tylenol Tab) 650 mg Q4H PRN PO 01/14/18 17:15 02/13/18 17:14 Al Hydrox/Mg Hydrox/Simethicone (Maalox Max Susp) 15 ml Q4H PRN PO 01/14/18 17:15 02/13/18 17:14 Magnesium Hydroxide (Milk Of Magnesia Susp) 30 ml Q6H PRN PO 01/14/18 17:15 02/13/18 17:14 Ondansetron HCl (Zofran Inj) 4 mg Q6H PRN IV 01/14/18 17:15 02/13/18 17:14 Albuterol/ Ipratropium (Duoneb) 3 ml QIDR INH 01/14/18 20:00 02/13/18 19:59 01/16/18 15:05 3 ML Albuterol/ Ipratropium (Duoneb) 3 ml Q2H PRN INH 01/14/18 17:15 02/13/18 17:14 Miscellaneous (Iv Fluids Completed) 1 ea PRN PRN N/A 01/14/18 17:30 01/14/19 17:29 Miscellaneous Information (Consult) 1 ea UD PRN N/A 01/14/18 17:30 02/13/18 17:29 Levofloxacin 750 mg/Prmx 150 ml @ 100 mls/hr Q24H IV 01/15/18 18:00 01/21/18 17:59 01/15/18 15:48 100 MLS/HR Miscellaneous (Iv Fluids Completed) 1 ea PRN PRN N/A 01/14/18 17:45 01/14/19 17:44 Piperacillin Sod/ Tazobactam Sod 3.375 gm/Dextrose 115 ml @ 28.75 mls/ hr Q8H IV 01/15/18 02:00 01/22/18 01:59 01/16/18 08:48 28.75 MLS/HR Miscellaneous (Fentanyl Patch Remove & Waste) 1 ea Q3D@0859 N/A 01/17/18 08:59 02/16/18 08:58 Miscellaneous Information (Check Fentanyl Patch Placement) 1 ea QS N/A 01/15/18 00:00 02/14/18 00:00 01/16/18 16:08 1 EA Magnesium Oxide (Mag-Ox Tab) 400 mg BID PO 01/15/18 21:00 02/14/18 20:59 01/16/18 08:50 400 MG Guaifenesin/ Dextromethorphan (Robitussin-Dm Syrup) 5 ml Q6H PRN PO 01/15/18 10:30 02/14/18 10:29 01/15/18 15:51 5 ML Vancomycin HCl (Consult) 1 ea UD PRN N/A 01/15/18 18:30 02/14/18 18:29 Vancomycin HCl 750 mg/Sodium Chloride 265 ml @ 125 mls/hr Q18H IV 01/16/18 12:00 01/23/18 11:59 01/16/18 12:59 125 MLS/HR Morphine Sulfate (MoRPHine SULFATE INJ) 2 mg Q1H PRN IV 01/16/18 13:45 01/28/18 17:29 01/16/18 13:53 2 MG Morphine Sulfate (MoRPHine SULFATE INJ) 4 mg Q1H PRN IV 01/16/18 13:45 01/28/18 17:29 Oxycodone HCl (Roxicodone Immediate Rel Tab) 10 mg Q4 PRN PO 01/16/18 13:45 01/28/18 17:29 Acetaminophen (Tylenol Tab) 1,000 mg Q12 PO 01/16/18 14:00 02/15/18 13:59 01/16/18 14:54 1,000 MG Physical Exam Date Time Temp Pulse Resp B/P (MAP) Pulse Ox O2 Delivery O2 Flow Rate FiO2 01/16/18 15:40 36.4 107 18 91/47 (62) 95 01/16/18 15:05 100 18 86 Room Air 01/16/18 11:39 37.0 72 16 93/58 (70) 96 01/16/18 11:09 98 16 96 Nasal Cannula 3.0 01/16/18 08:00 Nasal Cannula 2.0 01/16/18 07:20 36.6 116 24 96/56 (69) 91 Nasal Cannula 3.0 01/16/18 07:07 112 16 91 Nasal Cannula 3.0 01/16/18 03:49 36.5 119 29 107/60 (76) 93 Nasal Cannula 3.0 01/15/18 23:20 36.6 101 21 87/50 (62) 90 Room Air 93/51 (65) 01/15/18 20:01 Nasal Cannula 2.0 01/15/18 19:46 36.4 105 20 89/46 (60) 99 Nasal Cannula 2.0 01/15/18 19:34 106 16 86 Room Air 01/15/18 18:11 95/54 (68) General Appearance: + cachetic, + pertinent finding (Very weak, frequent cough productive of purulent sputum) Eyes: EOMI ENT: hearing grossly normal Respiratory: + decreased breath sounds Cardiovascular: no edema, + tachycardia Abdomen: non tender Musculoskeletal: abnormal strength Neurologic/Psychiatric: + pertinent finding (Fatigued, weak) Skin: warm/dry Laboratory Results Last 24 Hours Test 01/16/18 07:02 White Blood Count 46.92 K/uL Red Blood Count 2.54 M/uL Hemoglobin 7.0 g/dL Hematocrit 22.0 % Mean Corpuscular Volume 86.6 fL Mean Corpuscular Hemoglobin 27.6 pg Mean Corpuscular Hemoglobin Concent 31.8 g/dl RDW Standard Deviation 56.8 fL RDW Coefficient of Variation 18.1 % Platelet Count 357 K/uL Mean Platelet Volume 10.4 fL Platelet Estimate NORMAL Sodium Level 130 mmol/L Potassium Level 3.2 mmol/L Chloride Level 95 mmol/L Carbon Dioxide Level 26 mmol/L Anion Gap 8.0 mmol/L Blood Urea Nitrogen 10 mg/dl Creatinine 0.64 mg/dl Est Creatinine Clear Calc Drug Dose 55.1 ml/min Estimated GFR () 114.8 Estimated GFR (Non- 99.1 BUN/Creatinine Ratio 15.4 Random Glucose 87 mg/dl Calcium Level 9.2 mg/dl Assessment & Plan Palliative Performance Scale: 30 % (1) Palliative care encounter Assessment & Plan: Patient with severe debility, patient now more accepting of her poor prognosis-patient states she is agreeable to hospice referral at this time. Patient's goal is to to return home, will have case management make a hospice referral to meet with patient, her boyfriend, and her daughter (2) Weakness Status: Acute Assessment & Plan: Increasing-patient with poor p.o. intake and severe cachexia (3) Lung cancer Status: Chronic Assessment & Plan: Patient diagnosed March 2017-she has metastatic non-small cell lung cancer-had only a partial response to chemo, has not tolerated Opdivo -no further treatment offered. (4) Chronic pain Status: Chronic Assessment & Plan: Patient with chronic back pain and also rib pain which is exacerbated by cough. Patient is on a fentanyl patch-not sure how much she may be absorbing due to lack of subcutaneous fat. Patient has required only 1 dose of IV as needed morphine. (5) Protein-calorie malnutrition, severe Status: Chronic Assessment & Plan: Patient's BMI is 13, increasing weight loss due to poor p.o. intake. (6) Pneumonia Status: Acute Assessment & Plan: Patient recently treated 2-3 weeks prior with IV antibiotics , patient now with a cavitary left upper lobe lesion and purulent sputum. Patient would benefit from hospice care given that her goal is to return home and remain at home. Will defer to hospitalist regarding continued IV antibiotics and transition to p.o. antibiotics. Counseling and Coordination Total time spent 70 minutes with greater than 50% of the time spent at bedside discussing with patient her goals of care, confirming her CODE STATUS and discussing hospice referral.
[2018-01-16] MEDS: LEVOFLOXACIN / D5W 750 MG in PREMIXED IN D5W 150 ML IV SCH (17:31)
[2018-01-16] MEDS: ENOXAPARIN 40 MG/0.4 ML SYR SQ SCH (20:26)
[2018-01-17] VITALS (7 sets, daily range): BP systolic 82–132; BP diastolic 50–79; PULSE 71–112; TEMP 36.1–37.3; O2SAT 90–95
[2018-01-17] MEDS: CHECK FENTANYL PATCH PLACEMENT SCH ×4 (00:10→23:56)
[2018-01-17] MEDS: PIPERACILL/TAZOBAC IV 3.375 GM in D5W 100ML IV SCH ×3 (01:50→17:33)
[2018-01-17] MEDS: VANCOMYCIN IV 750 MG in SODIUM CHLORIDE 0.9% 250ML 250 ML IV SCH ×2 (05:30→23:56)
[2018-01-17] MEDS: ALBUT/IPRATROP 3MG/0.5MG NEB 3 ML VIAL INH SCH ×4 (07:14→19:01)
[2018-01-17] MEDS: MAGNESIUM OXIDE 400 MG TAB PO SCH ×2 (07:47→20:00)
[2018-01-17] MEDS: IPRATROPIUM BROMIDE NASAL SPRAY 0.06% 15ML NAE SCH ×3 (07:47→19:59)
[2018-01-17] MEDS: ACETAMINOPHEN 500 MG TAB PO SCH ×2 (07:48→20:07)
[2018-01-17] MEDS ORDERED: HYDROmorphone INJ 0.5 MG/0.5 ML SYR IV STA (08:21)
--- NOTE | 2018-01-17 08:24 | Progress Note ---
Subjective Date of Service: Jan 17, 2018. Subjective this pt is very depressed and continues to cough, final disposition discussion is underway for home hospice, pain control is suboptimal at this time Problem List Medical Problems: (1) COPD exacerbation Status: Acute (2) Hypotension Status: Acute (3) Hypotension Status: Acute (4) Hypoxia Status: Acute (5) Lung mass Status: Acute (6) Pneumonia Status: Acute (7) Weakness Status: Acute (8) Weight loss Status: Acute Review of Systems Constitutional: + weakness, + fatigue, No fever, No chills Respiratory: + cough, + sputum, + shortness of breath Cardiac: + chest pain Abdomen: + constipation, No pain, No nausea Musculoskeletal: + joint pain, + muscle pain Objective Vital Signs Date Time Temp Pulse Resp B/P (MAP) Pulse Ox O2 Delivery O2 Flow Rate FiO2 01/17/18 07:24 37.1 112 16 104/72 (83) 92 2.0 01/17/18 07:14 112 18 91 Nasal Cannula 2.0 01/17/18 00:00 Nasal Cannula 2.0 01/16/18 23:44 36.7 96 22 88/50 (63) 93 Nasal Cannula 2.0 01/16/18 19:17 91 14 94 Nasal Cannula 2.0 01/16/18 17:10 36.4 101 16 87/51 (63) 92 2.0 01/16/18 16:45 Room Air 2.0 01/16/18 15:40 36.4 107 18 91/47 (62) 95 01/16/18 15:05 100 18 86 Room Air 01/16/18 11:39 37.0 72 16 93/58 (70) 96 01/16/18 11:09 98 16 96 Nasal Cannula 3.0 Physical Exam General Appearance: + moderate distress, + cachetic, + thin Neck: supple, no JVD Respiratory/Chest: + decreased breath sounds, + accessory muscle use Cardiovascular: regular rate, rhythm, no murmur Abdomen: normal bowel sounds, soft Extremities: no pedal edema, no calf tenderness Neurologic/Psychiatric: alert, + depressed affect Laboratory Results Last 24 Hours Test 01/17/18 04:44 Assessment and Plan (1) Lung cancer Assessment & Plan: This is metastatic repeat CT of chest shows left lung cavitary lesion with possible communication to bronchus, pulmonary consult does not feel additional procedures will be helpful palliative consult, possibly considering XRT evaluation for palliation and to try to decrease secretions pain control is suboptimal adding lidoderm and oral morphine (2) Pneumonia Assessment & Plan: continues to be treated for mrsa and also gram negative pneumonia, has hospital exposure and cancer, cavitary lesion likely related to cancer and not to TB the pt denies any previous TB exposure, continue antibiotics at this time, will de escalate upon discharge (3) Hyponatremia Assessment & Plan: This is acute on chronic, elevated random urine sodium suggests SIADH, paraneoplastic process cannot be ruled out, will stop ivf as we are progression toward comfort care (4) Weakness Assessment & Plan: This is multifactorial likely accounting to the hyponatremia but also nutritional deficiencies, depression is also a big factor will opt for pain control and accept fatigue (5) Chronic pain Assessment & Plan: this pts pain is worsened today, will increase fentanyl patch to 75 mcg 01/17 and change parenteral pain med to hydromorphone, adding Lidoderm patches and oral morphine too Patient's albumin is 1.7 on presentation she is no signs of peripheral edema, she has moderate malnutrition and will have cascade operator consult Problem Qualifiers (1) Lung cancer: Laterality: left Lung location: upper lobe of lung Qualified Codes: C34.12 - Malignant neoplasm of upper lobe, left bronchus or lung
[2018-01-17] MEDS ORDERED: HYDROmorphone INJ 1 MG/ML SYR IV PRN (08:30)
[2018-01-17] MEDS ORDERED: HYDROmorphone INJ 2 MG/ML SYR/VIAL IV PRN (08:45)
[2018-01-17] MEDS ORDERED: FENTANYL PATCH REMOVE & WASTE SCH (08:59)
[2018-01-17] MEDS ORDERED: FENTANYL 75 MCG/HR TDSY TD SCH (09:00)
[2018-01-17] MEDS ORDERED: FENTANYL 25 MCG/HR TDSY TD SCH (09:00)
--- NOTE | 2018-01-17 09:30 | HEME/ONC PROGRESS NOTE ---
DATE: 01/17/2018 HEMATOLOGY/ONCOLOGY PROGRESS NOTE DIAGNOSES: 1. Pneumonia. 2. Failing performance status. 3. Hypoalbuminemia/anorexia. 4. Hyponatremia. 5. Metastatic nonsmall cell lung cancer. SUBJECTIVE: Again, Natali was seen and examined at bedside today. She remains quite ill, making virtually no progress. Tried to engage in discussion regarding end of life care. Apparently the palliative care team was engaged and discussed with Natali yesterday. I agree at this point further salvage chemotherapy would most likely expedite her and not extend her life significantly. Nursing reports no overnight difficulties otherwise. PHYSICAL EXAMINATION: GENERAL: She is lying supine in no acute distress. VITAL SIGNS: Her current temperature 37.1, pulse 112, respiratory rate 16, blood pressure 104/72. SKIN: Without rash or lesion. HEENT: Oral mucosa remains dry. NECK: Supple. HEART: Tachycardic but regular. Scattered rhonchi heard in both lung rubio. ABDOMEN: Soft, nontender. EXTREMITIES: No clubbing, cyanosis or edema. NEUROLOGIC: Grossly intact. LABORATORY DATA: Pending at the time of dictation. IMPRESSION: 1. Metastatic nonsmall cell lung cancer with radiographic evidence of disease progression. 2. Hypoalbuminemia. 3. Failing performance status. 4. Probable superimposed pneumonia. PLAN: Natali had undergone CT scan of the chest which clearly demonstrated disease progression. Agree with having palliative team discussed end of life care at this juncture. 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 I will ask radiation therapy to evaluate her for palliative therapy specifically to the left upper lobe mass that appears to be communicating with the left main stem bronchus. We will continue to follow Natali periodically during her hospital stay. Her prognosis is exceedingly poor and it would not surprise me if she passes away while in house.
[2018-01-17 09:41] LABS: CALCIUM 9.4 mg/dl (8.5-10.1); CREATININE 0.58 mg/dl (0.60-1.20); POTASSIUM 2.9 mmol/L (3.5-5.1)
--- NOTE | 2018-01-17 13:00 | Palliative Care Progress Note ---
Palliative Care Progress Note Date of Service Jan 17, 2018. Subjective Pt evaluation today including: conversation w/ patient (boyfriend Pillo, family member Tatyana), conversation w/ family, physical exam, chart review, conversation w/ transportation consultant (Dr. Thurman) Pain: 10/10 PO Intake: poor Patient is awake but "foggy-headed." Ignored some of my questions, did answer some appropriately. Spoke with patient about goals of care. She is going for CT simulation today at [id number]. Patient stated, "I guess so, " when I asked if she was interested in hospice care upon discharge. Stated her pain was 10/10 in right upper chest. Also has pain left upper chest that is worse when palpated. Met then with Dr. Thurman, patient, Pillo, and Tatyana. Talked about radiation. The plan is to give radiation a try once to see if patient tolerates and they will decide whether or not to continue treatments. Patient and family are concerned that patient is going to tolerate very well because of her pain, weakness, and fatigue. Plan is to tentatively get home at the end of the week with hospice of course depending on whether or not she will continue radiation. Patient is in agreement. Review of Systems Constitutional: + weakness, + fatigue ENT: + trouble swallowing (pills) Respiratory: + cough, + sputum, + dyspnea on exertion, No shortness of breath Cardiac: + chest pain (musculoskeletal) Abdomen: No pain, No nausea, No vomiting Female : No problem reported Objective Vital Signs Date Time Temp Pulse Resp B/P (MAP) Pulse Ox O2 Delivery O2 Flow Rate FiO2 01/17/18 07:50 Nasal Cannula 2.0 01/17/18 07:24 37.1 112 16 104/72 (83) 92 2.0 01/17/18 07:14 112 18 91 Nasal Cannula 2.0 01/17/18 00:00 Nasal Cannula 2.0 01/16/18 23:44 36.7 96 22 88/50 (63) 93 Nasal Cannula 2.0 01/16/18 19:17 91 14 94 Nasal Cannula 2.0 01/16/18 17:10 36.4 101 16 87/51 (63) 92 2.0 01/16/18 16:45 Room Air 2.0 01/16/18 15:40 36.4 107 18 91/47 (62) 95 01/16/18 15:05 100 18 86 Room Air Physical Exam General Appearance: no apparent distress, + cachetic, + thin ENT: hearing grossly normal Neck: supple, no JVD Respiratory/Chest: no respiratory distress, + decreased breath sounds, + crackles (few, fine in bilateral bases) Cardiovascular: regular rate, rhythm, no edema, + normal peripheral pulses Abdomen: normal bowel sounds, + pertinent finding (protuberant abdomen, somewhat firm but nontender) Neurologic/Psychiatric: + depressed affect, + disoriented Laboratory Results Last 24 Hours Test 01/17/18 08:38 Sodium Level 128 mmol/L Potassium Level 2.9 mmol/L Chloride Level 95 mmol/L Carbon Dioxide Level 25 mmol/L Anion Gap 7.0 mmol/L Blood Urea Nitrogen 9 mg/dl Creatinine 0.58 mg/dl Est Creatinine Clear Calc Drug Dose 60.8 ml/min Estimated GFR () 118.6 Estimated GFR (Non- 102.3 BUN/Creatinine Ratio 15.0 Random Glucose 90 mg/dl Calcium Level 9.4 mg/dl Assessment and Plan Problem list: Chest pain, noncardiac Severe protein-calorie malnutrition/cachexia Pneumonia Non-small cell lung cancer- end-stage Goals of care Palliative care recs: -Discontinue IV Dilaudid. -Start Roxanol 10mg PO/SL Q3h PRN pain or SOB. -Continue fentanyl patch 75mcg/hr TD Q72h. -The plan is to give radiation a try once to see if patient tolerates and they will decide whether or not to continue treatments. Patient and family are concerned that patient is going to tolerate very well because of her pain, weakness, and fatigue. Plan is to tentatively get home at the end of the week with hospice of course depending on whether or not she will continue radiation. Patient is in agreement. -16/01 will be provided in the home by family. -Family requesting referral to [facility]. warehouse operations manager aware. Total time spent 35 minutes with >50% of time spent at bedside with patient, family, and MD counseling/discussing goals of care. Palliative Performance Scale: 30 %
--- NOTE | 2018-01-17 14:45 | Radiation Oncology Consult ---
Radiation Oncology Consult Date / Reason Jan 17, 2018. Diagnosis (1) Lung cancer Onset Date: 03/31/2017 Permanent Comment: Hemoptysis and weight loss beginning 6 months ago Admission and finding of a a left upper lobe mass and adrenal metastasis Status post bronchoscopy and biopsy 03/31/2017 Squamous cell carcinoma Status post completion of palliative radiation therapy to the chest 04/26/2017. She received 3000 cGy Last Edited By: Marjorie Dobson on May 05, 2017 14:09 History of Present Illness I am seeing Ms. Emanuel in consultation at the request of Dr. Panchal. The patient's daughter and friend was also present during the consultation. ECOG PS: 4 Ms. Emanuel is a 56 show female with a positive smoking history who presented with a 6 month history of hemoptysis and progressive shortness of breath. The patient was recently admitted to the hospital for her shortness of breath and dyspnea on exertion. Additionally, she noted that she has had a significant weight loss. She did have a CT angiogram of the thorax on 03/30/2017 which revealed: "IMPRESSION: 1. Large thick-walled cavitary mass occupying the entire left upper lobe with extension into the left side of the mediastinum and left hilum. This also narrows and invades into the left lower lobe bronchus. This is consistent with a primary bronchogenic malignancy. 2. A 6 mm nodule within the right lower lobe is highly suspicious for metastatic focus. 3. Large heterogeneous left adrenal gland masses also highly suspicious for metastatic disease. Emphysema. 5. The left upper lobe bronchus and pulmonary artery are completely obstructed. Otherwise, no filling defects within the pulmonary arteries to suggest pulmonary embolus." The patient did have a CT of the abdomen/pelvis on 03/31/2017 which revealed: "IMPRESSION: 1. Large left adrenal mass highly concerning for metastatic involvement. 2. Small peripheral wedgelike regions of hypodensity in the kidneys bilaterally. This raises concern for small bilateral renal infarcts. 3. Diffuse anasarca and mesenteric edema could reflect a low protein state. 4. Small ascites. 5. Trace right and small left pleural effusions with dependent atelectasis." During the hospitalization, the patient was seen by Dr. Ascencio from pulmonary medicine. Dr. Ascencio did perform a bronchoscopy on 03/31/2017 which revealed a mass involving the left upper lobe, lingula and left lower lobe. A biopsy of the left upper lobe was performed at the time of the bronchoscopy confirmed squamous cell carcinoma; a station 7 lymph node was biopsied and was negative. The patient was eventually stabilized and was discharged from hospital. She then received palliative external beam radiation therapy to the left lung which completed on April 26, 2017. She received 3000 cGy in 10 fractions at 300 cGy per fraction. Subsequently, and she was then treated with gemcitabine and carboplatin chemotherapy underneath the supervision of Dr. Roe Panchal. More recently, her overall condition is worsened and she has become more weak. She was having difficulty with breathing and she was having a productive cough. She did present to the hospital and was admitted due to her multiple medical issues. She had a chest x-ray on 01/15/2018 which revealed: "IMPRESSION: 1. No change in appearance of the chest with mild left lung airspace opacities which are unchanged since exam of January 14, 2018 but improved since December 27, 2017. These may reflect an improving infectious process superimposed upon metastatic disease. 2. Small left pleural effusion." She did have a CT of the chest on which revealed: "IMPRESSION: 1. 6 cm cavitary left upper lobe pulmonary mass which appears to communicate with the left mainstem bronchus 2. Increasing bilateral pulmonary nodules many of which are cavitary. The findings likely represent multiple metastatic lesions. 3. Interval development of bilateral pleural effusions 4. Left lung septal edema. 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 Multiple hypodense hepatic masses, suspicious for progressive hepatic metastasis 6. Partially visualized 7.7 cm left adrenal mass." The patient has been seen by Dr. Panchal in the inpatient setting from medical oncology. Dr. Panchal has recommended consideration for palliative external beam radiation therapy and has advised against all further chemotherapy. We are now seeing the patient in consultation to discuss the role of radiation therapy. Currently, the patient is having significant productive cough and shortness of breath. She has significant fatigue. She also has significant poor appetite and weight loss. She does have some positional discomfort as well. Past History Past Medical/Surgical History: Cancer, COPD Social History Smoking Status: Current Every Day Smoker Hx Tobacco Use In Past Year?: No Estimated Cigarettes Per Day: 15 Quit Date: Mar 29, 2017 Do You Dip or Chew Tobacco: No Hx Alcohol Use: No Hx Substance Use : No Allergies Coded Allergies: No Known Allergies (Unverified , 01/14/18) Home Medications Scheduled Fentanyl (Duragesic), 1 PATCH TD [id number] Ipratropium [place] (Nasal) (Ipratropium [place]), 2 SPRAYS TANI TID Tiotropium [place] (Spiriva Respimat), 2 PUFF INH DAILY Scheduled PRN Albuterol Hfa (Ventolin Hfa), 2-4 PUFFS INH Q6H PRN for SOB/Wheezing Benzonatate (Tessalon Perles), 200 MG PO BID PRN for Cough Ibuprofen (Advil), 400-600 MG PO Q6H PRN for Pain or Fever Ondansetron Hcl (Zofran), 4 MG PO Q8 PRN for Nausea Prochlorperazine Maleate (Compazine), 20 MG PO QID PRN for Nausea or Vomiting Review of Systems Extremities: Hx Deep Vein Thrombosis: No Eyes: Hx Cataracts: No Ear/Hearing: Ear Side: Bilateral Hearing Ability: Normal Hearing Aid: None Edema: Present?: No Location Body Site Modifier: Bilateral Physical Exam Height: 5 (Feet) 3.00 (Inches) 160.0 (Centimeters) 1.6002 (Meters) Weight: 79 (Pounds) 5.8 (Ounces) 36.000 (Kilograms) 88949.000 (Grams) Date Time Temp Pulse Resp B/P (MAP) Pulse Ox O2 Delivery O2 Flow Rate FiO2 01/17/18 11:40 95 18 90 Nasal Cannula 2.0 01/17/18 07:50 Nasal Cannula 2.0 01/17/18 07:24 37.1 112 16 104/72 (83) 92 2.0 01/17/18 07:14 112 18 91 Nasal Cannula 2.0 01/17/18 00:00 Nasal Cannula 2.0 01/16/18 23:44 36.7 96 22 88/50 (63) 93 Nasal Cannula 2.0 01/16/18 19:17 91 14 94 Nasal Cannula 2.0 01/16/18 17:10 36.4 101 16 87/51 (63) 92 2.0 01/16/18 16:45 Room Air 2.0 01/16/18 15:40 36.4 107 18 91/47 (62) 95 01/16/18 15:05 100 18 86 Room Air General Appearance: + mild distress, + cachetic Head: normocephalic, atraumatic Eyes: normal inspection Neck: supple, no adenopathy Respiratory/Chest: chest non-tender, + respiratory distress, + decreased breath sounds, + accessory muscle use, + crackles Cardiovascular: regular rate, rhythm, no edema, no gallop, no JVD Abdomen/GI: normal bowel sounds, non tender, soft, no organomegaly Back: normal inspection Extremities: normal inspection Neurologic/Psych: die maker electronic II-XII nml as tested, alert, oriented x 3 Skin: normal color, warm/dry, no rash Pain Management Patient Reports Pain: Yes Side: Bilateral Pain Location: Generalized Patient Preferred Pain Scale: 0 - 10 Initial Pain Intensity: 10.0 Level of Consciousness: Spontaneously Alert Relief Measures: Medication - Injection, Medication - Topical Pain Medication Comment: patient is borderline hypotn giving bolus Pain Intervention: See MAR Pain Management Plan Defer pain management to inpatient team. Laboratory Laboratory Results: were reviewed Pathology Pathology Results: not applicable Imaging Imaging Studies: were reviewed, and pertinent findings noted in HPI Assessment & Recommendations Assessment: Ms. Emanuel is a 57-year-old female with locally advanced/ progressive lung cancer previously treated with a course of palliative radiation therapy April 2017 followed by systemic chemotherapy underneath the supervision of Dr. Roe Panchal. Unfortunately, the patient's overall performance status has significantly declined due to progressive disease involving the left upper lobe lung. She does have shortness of breath and a productive cough among other symptoms. Dr. Panchal has advised against further therapy and is recommended palliative care options only including hospice. Dr. Panchal is recommended consideration of re-irradiation involving the lung to potentially reduce some of her symptoms. We have been asked to evaluate her for consideration of radiation therapy. Treatment Options: 1. Palliative radiation therapy (4 - 5 fractions) - patient and family understands there is only a small to possible chance we may improve her symptoms. They also understand that this is an in-field recurrence so there is 100% overlap from previous radiation therapy which will increase the risk of all side effects. I would recommend treating the left mainstem bronchus and communication with the HARVEY cavitary mass. 2. Palliative care and hospice - I explained this is also a very reasonable option as well if the patient does not want to pursue radiation therapy which only carries a low potential for benefit. Plan: The patient would like to consider a course of palliative external beam radiation therapy with the understanding that there is significant overlap from the previous treatment course and that there is a realistic possibility that her symptoms do not improve after radiation therapy. The family and patient would like to take it one day at a time and will consider stopping treatment if the patient is uncomfortable or not tolerating treatment well. Rationale/Explanation of Treatment: We have explained the indications, alternatives, benefits, risks and side effects of radiation therapy to the lung. We have explained the most common side effects which include but are not limited to skin erythema, skin break down, pulmonary fibrosis, adhesion development, radiation pneumonitis, rib fracture, heart failure and heart disease, esophagitis, development of fistula, fatigue and development of secondary malignancy. We have explained the CT simulation process and treatment planning. The patient understands that any overlap from previous radiation therapy course with this course of treatment will increase her risk of all side effects including, but not limited to, soft tissue necrosis, necrosis, fistula formation, esophageal stenosis, dysphasia, tracheal stenosis, hemoptysis, breathing complications, . We explained what to expect before, during and after treatment on a regular basis. The patient understands and would be willing to consent to treatment. The patient and family had multiple questions which were answered to their full satisfaction. Thank you for allowing us to participate in the care of this patient. This chart was completed in part utilizing [employer] Speech Voice Recognition software. Attempts were made to minimize the grammatical errors, random word insertions, pronoun errors and incomplete sentences. Any formal questions or concerns about the content, text or information contained within the body of this dictation should be directly addressed to the provider for clarification. Prudence Kern MD Department of Radiation Oncology [facility] Total Time In Consultation I spent 30 minutes examining and counseling the patient. I spent 15 minutes completing this note. WAREHOUSE ATTENDANT Problem Qualifiers (1) Lung cancer: Laterality: left Lung location: upper lobe of lung Qualified Codes: C34.12 - Malignant neoplasm of upper lobe, left bronchus or lung
[2018-01-17] MEDS: HYDROmorphone INJ 0.5 MG/0.5 ML SYR IV PRN (14:53)
--- NOTE | 2018-01-17 15:44 | PULMONARY PROGRESS NOTE ---
DATE: 01/17/2018 TIME: 3:25 p.m. SUBJECTIVE: The patient is very lethargic and somewhat difficult to arouse. It appears that she has had a dose of Dilaudid approximately 30 minutes ago. She also has a fentanyl patch on 75 mcg q. 3 days. She also had some oxycodone this morning. She is able to mumble that she feels about the same. OBJECTIVE: GENERAL: The patient looked very weak. VITAL SIGNS: Temperature was 37.1. Heart rate is 95. Rhythm was regular. Respiratory rate was 16. SKIN: Her skin appears dry. CHEST: Rhonchi were heard bilaterally, anteriorly more than posteriorly. Saturation was 90% on 2 liters. EXTREMITIES: Showed no cyanosis, clubbing or edema. LABORATORY DATA: Electrolytes show sodium 128, potassium 2.9, chloride 95, bicarbonate 25. IMPRESSIONS: 1. Pneumonia. 2. Squamous cell CA with left upper lobe cavity. 3. Metastatic disease to both lungs. 4. Metastatic disease to adrenal glands. 5. Metastatic disease to the liver. 6. Severe leukocytosis. 7. Chronic obstructive pulmonary disease. COMMENTS AND RECOMMENDATIONS: The patient continues to do poorly. She is difficult to assess now because of sedation effects. Apparently, Dr. Kern spoke with her and she would like to have further radiation therapy. Hopefully, this will palliate her somewhat. I have no further suggestions at present. The sputum culture is growing Moraxella catarrhalis, so I am certain that this would be a likely sensitive to her current antibiotics which would include levofloxacin and Zosyn. I am not sure if she needs to continue with vancomycin. Would continue with the neb treatments. Prognosis is poor, however.
[2018-01-17] MEDS: LIDODERM (LIDOCAINE) PATCH 5% TD SCH (17:40)
[2018-01-17] MEDS: ENOXAPARIN 40 MG/0.4 ML SYR SQ SCH (20:08)
[2018-01-17] MEDS ORDERED: VANCOMYCIN TROUGH ONE (23:30)
[2018-01-18] VITALS (8 sets, daily range): BP systolic 81–86; BP diastolic 47–54; PULSE 98–105; TEMP 36.2–36.5; O2SAT 77–96
[2018-01-18] MEDS: PIPERACILL/TAZOBAC IV 3.375 GM in D5W 100ML IV SCH ×3 (01:41→17:32)
[2018-01-18 06:39] LABS: CALCIUM 9.1 mg/dl (8.5-10.1); CREATININE 0.85 mg/dl (0.60-1.20); POTASSIUM 3.1 mmol/L (3.5-5.1)
[2018-01-18] MEDS: ALBUT/IPRATROP 3MG/0.5MG NEB 3 ML VIAL INH SCH ×4 (07:12→19:24)
[2018-01-18] MEDS: IPRATROPIUM BROMIDE NASAL SPRAY 0.06% 15ML NAE SCH ×3 (08:00→20:00)
[2018-01-18] MEDS: LIDODERM (LIDOCAINE) PATCH 5% TD SCH (08:03)
[2018-01-18] MEDS: CHECK FENTANYL PATCH PLACEMENT SCH ×2 (08:04→15:34)
[2018-01-18] MEDS: MAGNESIUM OXIDE 400 MG TAB PO SCH ×2 (08:04→20:00)
[2018-01-18] MEDS: ACETAMINOPHEN 500 MG TAB PO SCH ×2 (08:04→21:00)
--- NOTE | 2018-01-18 09:30 | Pharmacy Progress Note ---
Pharmacy Antibiotic Prog Note Date of Service Jan 18, 2018. Subjective The patient is currently receiving vancomycin 750 mg IV every 18 hours. The patient is currently on day # 4 of IV therapy. Objective Height (Feet): 5 Height (Inches): 3.00 Weight (Kilograms): 38.500 Levels: Item Value Date Time Vancomycin Level Trough 15.9 mcg/ml 01/17/18 2306 Lab Results (24hrs): Test 01/17/18 23:06 01/18/18 05:41 Vancomycin Level Trough 15.9 mcg/ml (SEE COMMENT) Sodium Level 130 mmol/L (136-145) Potassium Level 3.1 mmol/L (3.5-5.1) Chloride Level 97 mmol/L (98-107) Carbon Dioxide Level 25 mmol/L (21-32) Anion Gap 8.0 mmol/L (3-11) Blood Urea Nitrogen 14 mg/dl (-18) Creatinine 0.85 mg/dl (0.60-1.20) Est Creatinine Clear Calc Drug Dose 41.5 ml/min Estimated GFR () 88.2 Estimated GFR (Non- 76.1 BUN/Creatinine Ratio 16.4 (10-20) Random Glucose 73 mg/dl (70-99) Calcium Level 9.1 mg/dl (8.5-10.1) Micro Results: Item Value Date Time MRSA DNA Surveillance Screen - Final Complete 01/15/18 1800 Nasal Specimen Negative for MRSA by DNA Probe Gram Stain - Final Complete 01/14/18 1606 Sputum Expectorated Sputum Blood Culture - Preliminary Resulted 01/14/18 1530 Blood NO GROWTH TO DATE. Blood Culture - Preliminary Resulted 01/14/18 1530 Blood NO GROWTH TO DATE. Assessment & Plan Patient on vancomycin and zosyn for pneumonia. Treated for MRSA and also gram negative pneumonia. MRSA nasal swab negative, however due to worsening condition , vancomycin continued. Vancomycin: * Trough level from this am came back therapeutic at ~15.9 mcg/ml (goal 15-20 mcg/ml) ; however drawn slightly before steady state so true level may be slightly higher * Scr increased today from 0.64 to 0.85 mg/dL - Will decrease the dose of vancomycin slightly for change in renal function to avoid supratherapeutic levels, and since level today not reflective of steady state * Prognosis poor per physician notes, if vancomycin is to be continued will plan to reorder trough prior to the 0600 dose on 01/20 to ensure therapeutic Pharmacy will continue to follow and will adjust dose/frequency as necessary. Thank you
--- NOTE | 2018-01-18 09:51 | Palliative Care Progress Note ---
Palliative Care Progress Note Date of Service Jan 18, 2018. Subjective Pt evaluation today including: conversation w/ patient, conversation w/ family (called and left message for patient's boyfriend Pillo), physical exam, chart review, conversation w/ senior staff consultant Pain: "better" did not give number rating PO Intake: poor Patient is awake, oriented. Still not answering all questions and is rather withdrawn. Patient states at this point she would prefer to just go home and forego further radiation treatments. She requested that I call her boyfriend Pillo to discuss. I called and left message for Pillo. Review of Systems Constitutional: + weakness ENT: + trouble swallowing (pills) Respiratory: + cough, + sputum, No shortness of breath Cardiac: + chest pain (non-cardiac), No edema Abdomen: No pain, No nausea, No vomiting Female : No problem reported Psychiatric: No anxiety Objective Vital Signs Date Time Temp Pulse Resp B/P (MAP) Pulse Ox O2 Delivery O2 Flow Rate FiO2 01/18/18 07:28 36.5 102 18 83/48 (60) 91 Nasal Cannula 3.0 01/18/18 07:12 102 16 91 Nasal Cannula 3.0 01/17/18 22:59 37.3 71 18 132/79 (96) 92 Room Air 01/17/18 20:00 Nasal Cannula 2.0 01/17/18 19:01 88 16 93 Nasal Cannula 2.0 01/17/18 16:01 36.1 91 14 82/50 (61) 95 Nasal Cannula 2.0 01/17/18 15:31 91 18 94 Nasal Cannula 2.0 01/17/18 11:40 95 18 90 Nasal Cannula 2.0 Physical Exam General Appearance: no apparent distress, + cachetic, + thin ENT: hearing grossly normal Neck: supple, no JVD Respiratory/Chest: no respiratory distress, no accessory muscle use, + decreased breath sounds Cardiovascular: regular rate, rhythm, no edema Abdomen: normal bowel sounds, non tender, + pertinent finding (non-tender) Neurologic/Psychiatric: + depressed affect, + pertinent finding (awake) Laboratory Results Last 24 Hours Test 01/17/18 23:06 01/18/18 05:41 Vancomycin Level Trough 15.9 mcg/ml Sodium Level 130 mmol/L Potassium Level 3.1 mmol/L Chloride Level 97 mmol/L Carbon Dioxide Level 25 mmol/L Anion Gap 8.0 mmol/L Blood Urea Nitrogen 14 mg/dl Creatinine 0.85 mg/dl Est Creatinine Clear Calc Drug Dose 41.5 ml/min Estimated GFR () 88.2 Estimated GFR (Non- 76.1 BUN/Creatinine Ratio 16.4 Random Glucose 73 mg/dl Calcium Level 9.1 mg/dl Assessment and Plan Problem list: Chest pain, noncardiac Severe protein-calorie malnutrition/cachexia Pneumonia Non-small cell lung cancer- end-stage Goals of care Palliative care recs: -Discontinue IV Dilaudid. -Roxanol 30mg is ordered currently, would try Roxanol 10mg PO/SL Q3h PRN pain or SOB first as patient was foggy headed from small dose of Dilaudid 0.5mg IV yesterday. -Continue fentanyl patch 75mcg/hr TD Q72h. -Patient stated to me today that she thinks she'd rather just go home now and forego radiation treatments, but she wants to discuss with her boyfriend first Pillo. I have a call out to Pillo. -16/01 will be provided in the home by family. -Family requesting referral to [facility]. environmental conflict manager aware. Total time spent 25 minutes with >50% of time spent at bedside with patient counseling/discussing goals of care. Palliative Performance Scale: 30 %
[2018-01-18] MEDS: MoRPHine SULFATE 15 MG/0.75 ML UDP PO PRN (11:02)
[2018-01-18] MEDS: HYDROmorphone INJ 0.5 MG/0.5 ML SYR IV PRN (13:56)
--- NOTE | 2018-01-18 14:10 | PULMONARY PROGRESS NOTE ---
DATE: 01/18/2018 TIME: 1:50 p.m. SUBJECTIVE: The patient continues to do poorly. She is slightly awake, but unable to verbalize. Her significant other was present and a friend of hers was there. They said she had not been able to speak to any substantial degree. She had not eaten anything of significance. The patient has decided against radiation. She will be going home tomorrow, they state. OBJECTIVE: GENERAL: The patient appears poorly. She is weak. VITAL SIGNS: Temperature is 36.5. Maximum temperature in the past 24 hours is 37.3. Heart rate was 103. Blood pressure is low at 83/48. CHEST: Respiratory rate is 16. Scattered rhonchi are heard bilaterally. The last saturation reported was 77% on room air. EXTREMITIES: I am not sure why she did not have oxygen on at that point. The patient was noted to wince when I was auscultating her cardiac sounds and respiratory sounds on the left lateral side. LABORATORY DATA: Electrolytes today showed sodium 130, potassium 3.1, chloride 97, bicarbonate 25. BUN is 14 with a creatinine of 0.85. IMPRESSIONS: 1. Pneumonia. 2. 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 3. Leukocytosis. 4. Chronic obstructive pulmonary disease. COMMENTS AND RECOMMENDATIONS: The patient appears terminal. She is being discharged tomorrow for comfort care. I have no significant suggestions. Case was discussed with her significant other.
--- NOTE | 2018-01-18 15:44 | Progress Note ---
Subjective Date of Service: Jan 18, 2018. Subjective this pt remains weak and tired has desire to go home on hospice and not go thru any further XRT, significant other is wanting to continue home antibiotics for this current pneumonia although I think that this will not be helpful in the end Problem List Medical Problems: (1) COPD exacerbation Status: Acute (2) Hypotension Status: Acute (3) Hypotension Status: Acute (4) Hypoxia Status: Acute (5) Lung mass Status: Acute (6) Pneumonia Status: Acute (7) Weakness Status: Acute (8) Weight loss Status: Acute Review of Systems Constitutional: + weakness, + fatigue, No fever, No chills Respiratory: + cough, + sputum, + shortness of breath, + dyspnea on exertion, + dyspnea at rest Cardiac: + chest pain, No PND, No edema Abdomen: + constipation, No pain, No nausea Musculoskeletal: No joint pain, No muscle pain, No swelling Female : No dysuria, No urinary frequency Psychiatric: No depression symptoms, No anhedonism Objective Vital Signs Date Time Temp Pulse Resp B/P (MAP) Pulse Ox O2 Delivery O2 Flow Rate FiO2 01/18/18 15:18 36.2 100 22 81/47 (58) 94 Nasal Cannula 3.0 01/18/18 14:59 100 16 94 Nasal Cannula 3.0 01/18/18 11:17 103 16 77 Room Air 01/18/18 08:00 Nasal Cannula 2.0 01/18/18 07:28 36.5 102 18 83/48 (60) 91 Nasal Cannula 3.0 01/18/18 07:12 102 16 91 Nasal Cannula 3.0 01/17/18 22:59 37.3 71 18 132/79 (96) 92 Room Air 01/17/18 20:00 Nasal Cannula 2.0 01/17/18 19:01 88 16 93 Nasal Cannula 2.0 01/17/18 16:01 36.1 91 14 82/50 (61) 95 Nasal Cannula 2.0 Physical Exam General Appearance: + moderate distress, + cachetic Respiratory/Chest: + respiratory distress, + decreased breath sounds, + accessory muscle use Cardiovascular: no murmur, + tachycardia Abdomen: non tender, soft Extremities: no pedal edema, no calf tenderness Neurologic/Psychiatric: alert, + depressed affect Laboratory Results Last 24 Hours Test 01/17/18 23:06 01/18/18 05:41 Vancomycin Level Trough 15.9 mcg/ml Sodium Level 130 mmol/L Potassium Level 3.1 mmol/L Chloride Level 97 mmol/L Carbon Dioxide Level 25 mmol/L Anion Gap 8.0 mmol/L Blood Urea Nitrogen 14 mg/dl Creatinine 0.85 mg/dl Est Creatinine Clear Calc Drug Dose 41.5 ml/min Estimated GFR () 88.2 Estimated GFR (Non- 76.1 BUN/Creatinine Ratio 16.4 Random Glucose 73 mg/dl Calcium Level 9.1 mg/dl Assessment and Plan (1) Lung cancer Assessment & Plan: This is metastatic repeat CT of chest shows left lung cavitary lesion with possible communication to bronchus, pulmonary consult does not feel additional procedures will be helpful palliative consult, pt does not want to continue XRT will have pt home on hospice with expectation for a poor prognosis pain control is oral morphine, lidoderm and fentanyl patch (2) Pneumonia Assessment & Plan: continues to be treated for mrsa and also gram negative pneumonia, has hospital exposure and cancer, cavitary lesion likely related to cancer and not to TB the pt denies any previous TB exposure, will consider liquid antibiotics at discharge (3) Hyponatremia Assessment & Plan: This is acute on chronic, elevated random urine sodium suggests SIADH, paraneoplastic process cannot be ruled out, no further lab checks as is on comfort care (4) Weakness Assessment & Plan: This is multifactorial likely accounting to the hyponatremia but also nutritional deficiencies, depression is also a big factor will opt for pain control and accept fatigue given will be on hospice (5) Chronic pain Assessment & Plan: pain control is fair pt is concerned about weakness increase fentanyl patch to 75 mcg 01/17 and change parenteral pain med to hydromorphone, adding Lidoderm patches and oral morphine too Patient's albumin is 1.7 on presentation she is no signs of peripheral edema, she has moderate malnutrition and will have belting cutter consult Problem Qualifiers (1) Lung cancer: Laterality: left Lung location: upper lobe of lung Qualified Codes: C34.12 - Malignant neoplasm of upper lobe, left bronchus or lung
[2018-01-18] MEDS: VANCOMYCIN IV 500 MG in SODIUM CHLORIDE 0.9% 250ML 250 ML IV SCH (17:32)
[2018-01-18] MEDS: ENOXAPARIN 40 MG/0.4 ML SYR SQ SCH (21:31)
[2018-01-18] MEDS ORDERED: SODIUM CHLORIDE 0.9% 500ML 500 ML IV SCH (23:45)
[2018-01-19] MEDS: CHECK FENTANYL PATCH PLACEMENT SCH ×3 (00:18→16:00)
[2018-01-19] MEDS ORDERED: SODIUM CHLORIDE 0.9% 500ML 500 ML IV STA (00:27)
[2018-01-19 01:52] VITALS: BP 93/57; PULSE 101
[2018-01-19] MEDS: PIPERACILL/TAZOBAC IV 3.375 GM in D5W 100ML IV SCH ×2 (02:09→09:39)
[2018-01-19 06:32] LABS: CALCIUM 9.6 mg/dl (8.5-10.1); CREATININE 0.87 mg/dl (0.60-1.20); POTASSIUM 3.1 mmol/L (3.5-5.1)
[2018-01-19 07:03] VITALS: PULSE 120; O2SAT 81
[2018-01-19] MEDS: ALBUT/IPRATROP 3MG/0.5MG NEB 3 ML VIAL INH SCH ×3 (07:03→15:55)
[2018-01-19 07:36] VITALS: BP 116/67; PULSE 116; TEMP 36.7; O2SAT 96
[2018-01-19] MEDS: IPRATROPIUM BROMIDE NASAL SPRAY 0.06% 15ML NAE SCH ×2 (07:45→14:00)
[2018-01-19] MEDS: LIDODERM (LIDOCAINE) PATCH 5% TD SCH (07:45)
[2018-01-19] MEDS: ACETAMINOPHEN 500 MG TAB PO SCH (07:45)
[2018-01-19] MEDS: MAGNESIUM OXIDE 400 MG TAB PO SCH (07:45)
[2018-01-19] MEDS: HYDROmorphone INJ 0.5 MG/0.5 ML SYR IV PRN (07:54)
[2018-01-19 11:32] VITALS: PULSE 99; O2SAT 94
[2018-01-19] MEDS: VANCOMYCIN IV 500 MG in SODIUM CHLORIDE 0.9% 250ML 250 ML IV SCH (12:38)
[2018-01-19] MEDS ORDERED: AMOX875T PO (13:09)
[2018-01-19] MEDS ORDERED: DRGTP75 TD (13:09)
[2018-01-19] MEDS ORDERED: RXNS10 PO (13:09)
[2018-01-19] MEDS ORDERED: METH500T PO (13:09)
[2018-01-19] MEDS ORDERED: HALO5TAB PO (13:09)
[2018-01-19] MEDS ORDERED: ATV5 SL (13:09)
--- NOTE | 2018-01-19 13:10 | Discharge Instructions ---
Discharge Instructions Date of Service Jan 19, 2018. Admission Reason for Admission: Hypoxia Discharge Discharge Diagnosis / Problem: metastatic lung cancer with pneumonia_> home [facility] hospice care Discharge Goals Goal(s): Diagnostic testing, Therapeutic intervention Activity Recommendations Activity Limitations: as noted below Exercise/Sports Limitations: gradually increase as tolerated . Current Hospital Diet Patient's current hospital diet: Regular Diet Discharge Diet Recommended Diet: Regular Diet Pending Studies Studies pending at discharge: no Medical Emergencies . Who to Call and When: Medical Emergencies: If at any time you feel your situation is an emergency, please call 911 immediately. . Non-Emergent Contact Non-Emergency issues call your: Specialist (hospice provider) Call Non-Emergent contact if: your pain is not controlled . . "Provider Documentation" section prepared by Aditya Thurman. .
[2018-01-19 13:33] VITALS: BP 116/67; PULSE 99; TEMP 36.7; O2SAT 94
[2018-01-19] MEDS ORDERED: SCOP1.5D2 TD (13:42)
--- NOTE | 2018-01-19 14:48 | Palliative Care Progress Note ---
Palliative Care Progress Note Date of Service Jan 19, 2018. Subjective Pt evaluation today including: conversation w/ family Pain: Patient appears comfortable PO Intake: Poor Met with patient's significant other and primary caregiver in the doorway of her room. Significant other voiced concerns with taking her home, however he wants to honor her last wish which was to at home. Review of Systems Patient resting comfortably, Objective Vital Signs Date Time Temp Pulse Resp B/P (MAP) Pulse Ox O2 Delivery O2 Flow Rate FiO2 01/19/18 13:33 36.7 99 14 94 Nasal Cannula 01/19/18 11:32 99 14 94 Nasal Cannula 5.0 01/19/18 08:00 Nasal Cannula 3.0 01/19/18 07:36 36.7 116 20 116/67 (83) 96 Nasal Cannula 5.0 01/19/18 07:03 120 20 81 Nasal Cannula 3.0 01/19/18 01:52 101 93/57 (69) 01/18/18 23:47 36.4 105 16 86/54 (65) 92 Nasal Cannula 3.0 01/18/18 19:56 Nasal Cannula 3.0 01/18/18 19:25 98 16 96 Nasal Cannula 3.0 01/18/18 16:07 91 Nasal Cannula 2.0 01/18/18 15:18 36.2 100 22 81/47 (58) 94 Nasal Cannula 3.0 01/18/18 14:59 100 16 94 Nasal Cannula 3.0 Physical Exam General Appearance: no apparent distress Respiratory/Chest: no respiratory distress Laboratory Results Last 24 Hours Test 01/19/18 05:31 Sodium Level 131 mmol/L Potassium Level 3.1 mmol/L Chloride Level 98 mmol/L Carbon Dioxide Level 25 mmol/L Anion Gap 8.0 mmol/L Blood Urea Nitrogen 20 mg/dl Creatinine 0.87 mg/dl Est Creatinine Clear Calc Drug Dose 43.4 ml/min Estimated GFR () 85.7 Estimated GFR (Non- 74.0 BUN/Creatinine Ratio 23.0 Random Glucose 70 mg/dl Calcium Level 9.6 mg/dl Assessment and Plan (1) Palliative care encounter Assessment & Plan: Provided support the patient's significant other and primary caregiver. Significant other aware that patient may pass quickly once she is at home, patient to go home with hospice later this afternoon (2) Lung cancer Status: Chronic Assessment & Plan: Patient at end-of-life, no further aggressive treatments available. (3) Chronic pain Status: Chronic Assessment & Plan: Patient appears comfortable on exam, continue fentanyl patches and as needed Roxanol (4) Protein-calorie malnutrition, severe Status: Chronic Assessment & Plan: Discuss with significant other comfort feeding as patient tolerates Palliative Performance Scale: 20 % Discharge planning: home with Hospice Counseling and Coordination Total time spent 25 minutes providing emotional support and discussing end-of- life issues with patient's significant other
[2018-01-19] MEDS: MoRPHine SULFATE 15 MG/0.75 ML UDP PO PRN (15:44)
--- NOTE | 2018-01-19 15:53 | Discharge Summary ---
Discharge Summary Date of Service Jan 19, 2018. Discharge Summary Admission Date: Jan 14, 2018 at 17:31 Discharge Date: Jan 19, 2018 Discharge Disposition: Home with services Principal Diagnosis: metastatic lung cancer, pneumonia Immunizations: Have You Had Influenza Vaccine: Unknown History of Tetanus Vaccine?: Unknown History of Pneumococcal: Unknown History of Hepatitis B Vaccine: Unknown Medication Reconciliation New Medications: Amoxicillin & Pot Clavulanate (Augmentin 875-125 mg) 1 Tab Tab 875 MG PO BID, #14 TAB please replace with appropriate elixir Haloperidol (Haldol) 5 Mg Tab 0.5 TAB PO Q4H PRN for agitation for 30 Days, #60 TAB 1 Refill Lorazepam (Lorazepam) 0.5 Mg Tab 0.5 MG SL Q4, #30 DOSE Methocarbamol (Robaxin) 500 Mg Tab 1 TAB PO BID PRN for secretions for 30 Days, #30 TAB Scopolamine (Transderm-Scop) 1 Mg/3 Days Dis 3 MG TD Q72H, #10 PATCH Fentanyl (Duragesic) 75 Mcg Tdsy 75 MCG TD Q3D@0900, #10 PATCH Morphine Sulfate (Morphine Sulfate) 10 Mg/0.5 Ml Soln 20 MG PO Q4H PRN for Pain, #30 ML Discontinued Medications: Albuterol Hfa (Ventolin Hfa) 200 Puffs/06037 Mcg Aers 2-4 PUFFS INH Q6H PRN for SOB/Wheezing, #1 INHALER Benzonatate (Tessalon Perles) 200 Mg Cap 200 MG PO BID PRN for Cough, CAP Fentanyl (Duragesic) 25 Mcg/Hr Dis 1 PATCH TD CQ72HR Ibuprofen (Advil) 200 Mg Tab 400-600 MG PO Q6H PRN for Pain or Fever, TAB Ipratropium [place] (Nasal) (Ipratropium [place]) Unknown Strength Spr 2 SPRAYS TANI TID Ondansetron Hcl (Zofran) 4 Mg Tab 4 MG PO Q8 PRN for Nausea, TAB Prochlorperazine Maleate (Compazine) 10 Mg Tab 20 MG PO QID PRN for Nausea or Vomiting for 7 Days, #30 TAB 3 Refills Tiotropium [place] (Spiriva Respimat) 2.5 Mcg/Act Spr 2 PUFF INH DAILY, INHALER Discharge Exam Review of Systems: Constitutional: No fever, No chills, No weakness, No fatigue Respiratory: + cough, + sputum, + shortness of breath Abdomen: + pain, + nausea, + diarrhea Musculoskeletal: + swelling, No joint pain, No muscle pain Genitourinary - Male: No hematuria, No dysuria Hospital Course (1) Lung cancer This is metastatic repeat CT of chest shows left lung cavitary lesion with possible communication to bronchus, pulmonary consult does not feel additional procedures will be helpful palliative consult, pt does not want to continue XRT will have pt home on hospice with expectation for a poor prognosis pain control is oral morphine, ativan and fentanyl patch (2) Pneumonia continues to be treated for mrsa and also gram negative pneumonia, has hospital exposure and cancer, cavitary lesion likely related to cancer and not to TB the pt denies any previous TB exposure, will consider liquid augmentin at discharge (3) Hyponatremia This is acute on chronic, elevated random urine sodium suggests SIADH, paraneoplastic process cannot be ruled out, no further lab checks as is on comfort care (4) Weakness This is multifactorial likely accounting to the hyponatremia but also nutritional deficiencies, depression is also a big factor will opt for pain control and accept fatigue given will be on hospice (5) Chronic pain pain control is fair pt is concerned about weakness increase fentanyl patch to 75 mcg 01/17 and SL ativan and oral morphine too Patient's albumin is 1.7 on presentation she is no signs of peripheral edema, she has moderate malnutrition and will have editorial clerk consult Total Time Spent: Greater than 30 minutes This includes examination of the patient, discharge planning, medication reconciliation, and communication with other providers. Discharge Instructions Please refer to the electronic Patient Visit Report (Discharge Instructions) for additional information. Problem Qualifiers (1) Lung cancer: Laterality: left Lung location: upper lobe of lung Qualified Codes: C34.12 - Malignant neoplasm of upper lobe, left bronchus or lung
[2018-01-19 15:56] VITALS: PULSE 118; O2SAT 71
[2018-01-20] MEDS ORDERED: VANCOMYCIN TROUGH ONE (23:30)
== END 2018-01-19 17:15 | disposition hospice, home (50) | DRG 177 ==
LOC: C.EDB 14:57 → C.2T 17:31 → EDBEDREQSVC 17:33 → EDBEDREQ 17:33 → ENRESERV 17:43 → C.4E 01-16 17:05
PROVIDERS: ADMIT Internal Medicine; ATTEND Internal Medicine
DX: J15.212 Pneumonia due to Methicillin resistant Staphylococcus aureus (principal); E43 Unspecified severe protein-calorie malnutrition; J44.1 Chronic obstructive pulmonary disease with (acute) exacerbation; E87.1 Hypo-osmolality and hyponatremia; C78.7 Secondary malignant neoplasm of liver and intrahepatic bile duct; Z51.5 Encounter for palliative care; C79.70 Secondary malignant neoplasm of unspecified adrenal gland; C34.12 Malignant neoplasm of upper lobe, left bronchus or lung; Z92.3 Personal history of irradiation; J15.6 Pneumonia due to other Gram-negative bacteria; F17.200 Nicotine dependence, unspecified, uncomplicated; I95.9 Hypotension, unspecified; G89.3 Neoplasm related pain (acute) (chronic); Z66 Do not resuscitate